=== PATIENT | male | born 1940 | race Caucasian/White ===

== ENCOUNTER → 2017-03-21 | Outpatient (CLI) | payer OTHER, BC ==
[~2017-03-21] MED LIST: ALBUAER INH; AMLO-114 PO; ASPI81TA28 PO; FIBER PO; FINA5TAB4 PO; FLUT0.15 NAE; HYDR25TA5 PO; IBUP-1050 PO; IPRASOL4 INH; LACT1TAB4; OMEP20CA9 PO; SIMV-151 PO
[2017-03-21 13:20] LABS: BASO % 1.1 %; BASO ABS # 0.08 K/uL (0-0.2); COMPLETE YES; EOS % 7.7 %; HEMATOCRIT 45.3 % (42-52); IG% 0.4 %; LYMPH % 25.2 %; LYMPH ABS # 1.84 K/uL (1.2-3.4); MEAN CELL VOLUME 94.2 fL (80-100); MEAN CORPUSCULAR HEMOGLOBIN 32.4 pg (25-34); MEAN CORPUSCULAR HGB CONC 34.4 g/dl (32-36); MEAN PLATELET VOLUME 10.5 fL (7.4-10.4); MONO % 12.1 %; NEUT % 53.5 %; PLATELET COUNT 317 K/uL (130-400); RED BLOOD COUNT 4.81 M/uL (4.7-6.1); WHITE BLOOD COUNT 7.29 K/uL (4.8-10.8)
[2017-03-21 13:30] LABS: BLOOD UREA NITROGEN 21 mg/dl (7-18); BUN/CREATININE RATIO 17.8 (10-20); CALCIUM 9.5 mg/dl (8.5-10.1); CARBON DIOXIDE 30 mmol/L (21-32); CHLORIDE 105 mmol/L (98-107); GLUCOSE 128 mg/dl (70-99); POTASSIUM 3.8 mmol/L (3.5-5.1); SODIUM 141 mmol/L (136-145)
[2017-03-21 13:33] LABS: ALB/GLOB RATIO 1.2 (0.9-2); ALKALINE PHOSPHATASE 67 U/L (45-117); ALT/SGPT 26 U/L (12-78); AST/SGOT 26 U/L (15-37); CHOLESTEROL 170 mg/dl (0-200); HDL CHOLESTEROL 42 mg/dl; LDL CHOLESTEROL CALCULATED 101 mg/dl; TRIGLYCERIDES 137 mg/dl (0-150); VERY LOW DENSITY LIPOPROT CALC 27 mg/dl
== END | disposition home or self-care (01) ==
LOC: C.LABMFLN 10:22
PROVIDERS: ATTEND Family Medicine
DX: I10 Essential (primary) hypertension (principal); E78.5 Hyperlipidemia, unspecified

== ENCOUNTER → 2017-08-18 | Outpatient (CLI) | payer OTHER, BC ==
[~2017-08-18] MED LIST changes: +ADVIN25/60 INH; +ALBU18002 INH; +ALL60 PO; -AMLO-114 PO; +AMLO10TA3 PO; +AZIT-57 PO; +CEFD300C3 PO; +FLNIN/ NAE; +GFNSR600 PO; +IPRA-64 NEB; -IPRASOL4 INH; +LPT40 PO; +NAPR1TAB9 PO; +NRV/10 PO; +PRED10TA PO; +PRED20TA PO; +PRED50TA PO; +PRS5 PO; +SYMIN160 INH; +TMF75 PO; +TPRSR/50 PO; +TPRSR25 PO
[2017-08-18 18:43] LABS: INFLUENZA A PCR Neg for Influ A (NEG); INFLUENZA B PCR Neg for Influ B (NEG)
== END | disposition home or self-care (01) ==
LOC: C.LABMFLN 16:17
PROVIDERS: ATTEND Family Medicine
DX: M79.1 Myalgia (principal)

== ENCOUNTER 2017-09-18 12:44 | Inpatient (IN) | payer OTHER, BC ==
[~2017-09-18] VITALS: Ht 180.3 cm; Wt 98.4 kg
[~2017-09-18 12:44] MED LIST changes: -ADVIN25/60 INH; -ALBU18002 INH; -ALL60 PO; +AMLO-114 PO; -AMLO10TA3 PO; -AZIT-57 PO; -CEFD300C3 PO; -FLNIN/ NAE; -GFNSR600 PO; -IPRA-64 NEB; +IPRASOL4 INH; -LPT40 PO; -NAPR1TAB9 PO; -NRV/10 PO; -PRED10TA PO; -PRED20TA PO; -PRED50TA PO; -PRS5 PO; -SYMIN160 INH; -TMF75 PO; -TPRSR/50 PO; -TPRSR25 PO
[2017-09-18] MEDS ORDERED: ALBUT/IPRATROP 3MG/0.5MG NEB 3 ML VIAL INH STA (13:22)
[2017-09-18] MEDS ORDERED: SODIUM CHLORIDE 0.9% 1000ML 500 ML IV ONE (13:22)
[2017-09-18] MEDS ORDERED: PIPERACILLIN/TAZOBACTAM 4.5 GM/100ML D5W IV STA (13:22)
--- NOTE | 2017-09-18 13:31 | EMERGENCY ROOM VISIT NOTE ---
History Report prepared by [place]: Nata Tello Under the Supervision of: Dr. Familia Pace M.D. First contact with patient: 13:17 Chief Complaint: FEVER Stated Complaint: CHILLS, FEVER History of Present Illness The patient is a 77 year old male who presents to the Emergency Room with complaints of sudden worsening generalized weakness beginning about two hours ago. The patient reports a fever, chills, nausea, and diarrhea beginning two hours ago. He reports he woke up this morning feeling normal and went to the gym. The patient states he felt normal yesterday. He denies any shortness of breath, cough, or urinary symptoms. Per , the patient has a history of sepsis. She states the patient's symptoms today are similar when he had the previous bout of sepsis. Per family, the patient's speech sounds different. The patient states his mouth is dry. The patient had a sinus infection at the end of July and was put on antibiotics for it. The patient has been off the antibiotic for about 2 weeks. He reports he felt well after stopping the antibiotics. The patient has a history of COPD. The patient had a flu shot this year. Source of History: patient Onset: two hours ago Position: other (generalized) Quality: other (weakness) Timing: worsening Associated Symptoms: + fevers, + chills, + nausea, + diarrhea, + weakness, No cough, No SOB, No urinary symptoms Review of Systems See HPI for pertinent positives & negatives. A total of 10 systems reviewed and were otherwise negative. Past Medical & Surgical Medical Problems: (1) Acute respiratory failure with hypoxia (2) Choledocholithiasis (3) COPD (chronic obstructive pulmonary disease) (4) Hypertension (5) Hypomagnesemia (6) Hypophosphatemia (7) Right lower lobe pneumonia (8) S/P hernia repair (9) Sepsis (10) UTI (lower urinary tract infection) Surgical Problems: (1) S/P hip replacement (2) S/P knee replacement (3) Status post laparoscopic cholecystectomy Family History Hypertension Social History Smoking Status: Never Smoker Alcohol Use: none Drug Use: none Marital Status: Housing Status: lives with significant other Occupation Status: retired Current/Historical Medications Scheduled Amlodipine (Norvasc), 10 MG PO DAILY Aspirin (Aspirin Ec), 81 MG PO DAILY Fiber Laxative (Fiber Laxative), 2 TABS PO QPM Finasteride (Proscar), 5 MG PO DAILY Fluticasone Propionate (Nasal) (Flonase Allergy Relief), 2 SPRAYS SURINDER HS Hydrochlorothiazide (Hydrochlorothiazide), 12.5 MG PO DAILY Omeprazole (Prilosec), 20 MG PO DAILY Scheduled PRN Ipratropium-Albuterol (Duoneb), 1 TREATMENT INH Q4H PRN for SOB/Wheezing Miscellaneous Medications Ibuprofen (Advil), Unknown Dose PO Allergies Coded Allergies: Levofloxacin (Verified Allergy, Unknown, facial swelling, 05/10/16) Morphine (Verified Adverse Reaction, Unknown, MIGRAINE, 05/10/16) Physical Exam Vital Signs Date Time Temp Pulse Resp B/P (MAP) Pulse Ox O2 Delivery O2 Flow Rate FiO2 09/18/17 17:26 90 18 128/75 94 09/18/17 16:49 95 18 131/74 91 Nasal Cannula 2.0 09/18/17 16:28 88 Nasal Cannula 2.0 09/18/17 15:23 104 09/18/17 13:13 Nasal Cannula 2.0 09/18/17 13:08 37.4 100 18 137/79 88 Room Air Physical Exam GENERAL: Patient is in no acute distress. HEENT: No acute trauma, normocephalic atraumatic, mucous membranes dry, no nasal congestion, no scleral icterus. NECK: No stridor, no adenopathy, no meningismus, trachea is midline. LUNGS: Bilateral wheezes with diminished breath sounds, no crackles, no respiratory distress. HEART: Tachycardic with a regular rhythm, no murmurs. ABDOMEN: Soft, nontender, bowel sounds positive, no hernias, no peritonitis. EXTREMITIES: No cyanosis or edema, full range of motion of all the joints without pain or difficulty, no signs for acute trauma. NEUROLOGIC: Oriented x 3, no acute motor or sensory deficits, no focal weakness. SKIN: No rash, no jaundice, no diaphoresis. Medical Decision & Procedures ER Provider Diagnostic Interpretation: Radiology results as stated below per my review and radiologist interpretation: CHEST ONE VIEW PORTABLE FINDINGS: Cardiomediastinal silhouette normal. Bibasilar bandlike opacities. Persistent elevation of the right hemidiaphragm. No large pleural effusion or pneumothorax. Osseous structures normal. Upper abdomen normal. IMPRESSION: 1. Bibasilar opacities likely atelectasis. Electronically signed by: Florencio Sinclair M.D. Laboratory Results 09/18/17 14:15 Red Blood Count 4.58, Mean Corpuscular Volume 91.9, Mean Corpuscular Hemoglobin 32.5, Mean Corpuscular Hemoglobin Concent 35.4, Mean Platelet Volume 10.3, Neutrophils (%) (Auto) 89.5, Lymphocytes (%) (Auto) 2.7, Monocytes (%) (Auto) 7.0, Eosinophils (%) (Auto) 0.2, Basophils (%) (Auto) 0.2, Neutrophils # (Auto) 19.34, Lymphocytes # (Auto) 0.59, Monocytes # (Auto) 1.52, Eosinophils # (Auto) 0.04, Basophils # (Auto) 0.05 09/18/17 14:15 Test 09/18/17 14:15 09/18/17 14:26 09/18/17 15:35 White Blood Count 21.63 K/uL (4.8-10.8) Red Blood Count 4.58 M/uL (4.7-6.1) Hemoglobin 14.9 g/dL (14.0-18.0) Hematocrit 42.1 % (42-52) Mean Corpuscular Volume 91.9 fL (80-100) Mean Corpuscular Hemoglobin 32.5 pg (25-34) Mean Corpuscular Hemoglobin Concent 35.4 g/dl (32-36) Platelet Count 280 K/uL (130-400) Mean Platelet Volume 10.3 fL (7.4-10.4) Neutrophils (%) (Auto) 89.5 % Lymphocytes (%) (Auto) 2.7 % Monocytes (%) (Auto) 7.0 % Eosinophils (%) (Auto) 0.2 % Basophils (%) (Auto) 0.2 % Neutrophils # (Auto) 19.34 K/uL (1.4-6.5) Lymphocytes # (Auto) 0.59 K/uL (1.2-3.4) Monocytes # (Auto) 1.52 K/uL (0.11-0.59) Eosinophils # (Auto) 0.04 K/uL (0-0.5) Basophils # (Auto) 0.05 K/uL (0-0.2) RDW Standard Deviation 43.1 fL (36.4-46.3) RDW Coefficient of Variation 12.9 % (11.5-14.5) Immature Granulocyte % (Auto) 0.4 % Immature Granulocyte # (Auto) 0.09 K/uL (0.00-0.02) Prothrombin Time 10.7 SECONDS (9.0-12.0) Prothromb Time International Ratio 1.0 (0.9-1.1) Activated Partial Thromboplast Time 22.6 SECONDS (21.0-31.0) Partial Thromboplastin Ratio 0.9 Anion Gap 11.0 mmol/L (3-11) Est Creatinine Clear Calc Drug Dose 60.6 ml/min Estimated GFR () 67.6 Estimated GFR (Non- 58.3 BUN/Creatinine Ratio 19.1 (10-20) Calcium Level 9.1 mg/dl (8.5-10.1) Magnesium Level 1.4 mg/dl (1.8-2.4) Total Bilirubin 0.7 mg/dl (0.2-1) Aspartate Amino Transf (AST/SGOT) 25 U/L (15-37) Alanine Aminotransferase (ALT/SGPT) 20 U/L (12-78) Alkaline Phosphatase 56 U/L (45-117) Troponin I < 0.015 ng/ml (0-0.045) Total Protein 7.0 gm/dl (6.4-8.2) Albumin 3.6 gm/dl (3.4-5.0) Globulin 3.4 gm/dl (2.5-4.0) Albumin/Globulin Ratio 1.1 (0.9-2) Bedside Lactic Acid Venous 2.07 mmol/L (0.90-1.70) Influenza Type A Antigen Neg for Influ A (NEG) Influenza Type B Antigen Neg for Influ B (NEG) Laboratory results reviewed by me. Medications Administered Medications (Trade) Dose Ordered Sig/Kathrine Route Start Time Stop Time Status Last Admin Dose Admin Sodium Chloride 500 ml @ 999 mls/hr Q31M ONCE IV 09/18/17 13:22 09/18/17 13:52 DC 09/18/17 13:10 999 MLS/HR Piperacillin Sod/ Tazobactam Sod (Zosyn Iv) 4.5 gm ONE STAT IV 09/18/17 13:22 09/18/17 13:26 DC 09/18/17 14:38 4.5 GM Albuterol/ Ipratropium (Duoneb) 3 ml NOW STAT INH 09/18/17 13:22 09/18/17 13:26 DC 09/18/17 14:37 3 ML Sodium Chloride 500 ml @ 999 mls/hr Q31M STAT IV 09/18/17 14:29 09/18/17 14:59 DC 09/18/17 14:20 999 MLS/HR Magnesium Sulfate (Magnesium Sulfate) 2 gm NOW STAT IV 09/18/17 14:55 09/18/17 14:56 DC 09/18/17 16:39 2 GM Potassium Chloride (Klor-Con M10) 40 meq NOW STAT PO 09/18/17 16:10 09/18/17 16:45 DC 09/18/17 17:15 40 MEQ Oseltamivir Phosphate (Tamiflu Cap) 75 mg NOW STAT PO 09/18/17 16:37 09/18/17 16:45 DC 09/18/17 17:15 75 MG ECG Indication: weakness Rate (beats per minute): 94 Rhythm: sinus rhythm Findings: PVC, T-wave inversion (Lateral) Comparison ECG Date: 05/10/2016 Change: Lateral ST changes are slightly more pronounced. EKG interpreted by me. ED Course 1317: The patient was evaluated in room B11A. A complete history and physical exam was performed. 1322: Ordered Duoneb 3 ml INH, Zosyn Iv 4.5 gm IV, Sodium Chloride 500 ml @ 999 mls/hr IV. 1429: Ordered Sodium Chloride 500 ml @ 999 mls/hr IV. 1455: Ordered Magnesium Sulfate 2 gm IV. 1503: [facility] the [facility] The patient will be evaluated for further management. Medical Decision Differential diagnoses: sepsis, pneumonia, bronchitis, exacerbation of COPD, dehydration, UTI, electrolyte imbalance, cardiac ischemia, influenza. There is a significant leukocytosis at 21,000, this is consistent with infection. No concerning anemia. Magnesium quite low at 1.4, no kidney failure , no hepatitis. Lactic acid level is mildly elevated consistent with either dehydration and/or sepsis. EKG shows a sinus rhythm with PVCs, there were a few subtle EKG changes but nothing thought consistent with acute PR. Cardiac enzyme testing 1 is not consistent with acute cardiac injury. Influenza testing was negative. Chest film shows bilateral lower lobe congestion, possibly pneumonia, possibly atelectasis. Blood cultures are pending. The patient was aggressively managed given his hypoxia and history of sepsis. He received IV Zosyn as antibiotic coverage. He was given a DuoNeb to help his wheezing. He received IV saline for hydration. He was given IV magnesium. The patient has SIRS criteria. He likely has a pneumonia. He presents hypoxic with a very high white blood cell count and weakness/fatigue. Hospitalization is warranted. I spoke to the patient and case management. The on-call hospitalist was consulted. Medication Reconcilliation Current Medication List: was personally reviewed by me Blood Pressure Screening Patient's blood pressure: Elevated blood pressure Blood pressure disposition: Elevated BP felt to be situational Consults Time Called: 1500 Consulting Physician: Dr. Herrera Returned Call: 1503 Discussed the patient's case with Dr. Herrera. The patient will be evaluated for further management. Impression Primary Impression: Pneumonia Additional Impressions: Hypoxia Hypomagnesemia SIRS (systemic inflammatory response syndrome) Critical Care I have personally spent greater than 40 minutes of critical care time in the direct management of this patient. This includes bedside care, interpretation of diagnostic studies, and testing, discussion with consultants, patient, and family members, and other required patient management activities. This 40 minutes is in excess of all separately billable procedures. Scribe Attestation The scribe's documentation has been prepared under my direction and personally reviewed by me in its entirety. I confirm that the note above accurately reflects all work, treatment, procedures, and medical decision making performed by me. Departure Information Dispostion Being Evaluated By Hospitalist Fiona Castro M.D. (PCP) Patient Instructions My [facility] Problem Qualifiers
--- NOTE | 2017-09-18 13:54 | DIAGNOSTIC IMAGING REPORT ---
CHEST ONE VIEW PORTABLE CLINICAL HISTORY: 77 years-old Male presenting with Sepsis. TECHNIQUE: Portable upright AP view of the chest was obtained. COMPARISON: 05/10/2016. FINDINGS: Cardiomediastinal silhouette normal. Bibasilar bandlike opacities. Persistent elevation of the right hemidiaphragm. No large pleural effusion or pneumothorax. Osseous structures normal. Upper abdomen normal. IMPRESSION: 1. Bibasilar opacities likely atelectasis. Electronically signed by: Florencio Sinclair M.D. 09/18/2017 1:53 PM Dictated Date/Time: 09/18/2017 1:52 PM
[2017-09-18] MEDS ORDERED: SODIUM CHLORIDE 0.9% 500ML 500 ML IV STA (14:29)
[2017-09-18 14:31] LABS: BASO % 0.2 %; BASO ABS # 0.05 K/uL (0-0.2); EOS % 0.2 %; EOS ABS # 0.04 K/uL (0-0.5); HEMATOCRIT 42.1 % (42-52); HEMOGLOBIN 14.9 g/dL (14.0-18.0); IG# 0.09 K/uL (0.00-0.02); LYMPH % 2.7 %; LYMPH ABS # 0.59 K/uL (1.2-3.4); MEAN CELL VOLUME 91.9 fL (80-100); MEAN CORPUSCULAR HEMOGLOBIN 32.5 pg (25-34); MEAN CORPUSCULAR HGB CONC 35.4 g/dl (32-36); MEAN PLATELET VOLUME 10.3 fL (7.4-10.4); MONO ABS # 1.52 K/uL (0.11-0.59); NEUT % 89.5 %; NEUT ABS # 19.34 K/uL (1.4-6.5); PLATELET COUNT 280 K/uL (130-400); RED CELL DISTRIBUTION WIDTH CV 12.9 % (11.5-14.5); RED CELL DISTRIBUTION WIDTH SD 43.1 fL (36.4-46.3); WHITE BLOOD COUNT 21.63 K/uL (4.8-10.8)
[2017-09-18 14:43] LABS: PTT PATIENT 22.6 SECONDS (21.0-31.0)
[2017-09-18 14:48] LABS: ALBUMIN 3.6 gm/dl (3.4-5.0); ALT/SGPT 20 U/L (12-78); BLOOD UREA NITROGEN 23 mg/dl (7-18); CALCIUM 9.1 mg/dl (8.5-10.1); CARBON DIOXIDE 24 mmol/L (21-32); CREATININE 1.18 mg/dl (0.60-1.40); GLUCOSE 136 mg/dl (70-99); POTASSIUM 3.4 mmol/L (3.5-5.1); SODIUM 137 mmol/L (136-145)
[2017-09-18 14:53] LABS: ALKALINE PHOSPHATASE 56 U/L (45-117); AST/SGOT 25 U/L (15-37)
[2017-09-18] MEDS ORDERED: MAGNESIUM SULFATE 1GM / D5W 1 GM BAG IV STA (14:55)
--- NOTE | 2017-09-18 15:48 | History and Physical ---
History & Physical Date & Time of Service: Sep 18, 2017 at 15:15 Chief Complaint: Chills, Fever Primary Care Physician: Fiona Stafford M.D. History of Present Illness Source: patient, spouse 77yo male with history of COPD who presents with feeling poorly starting this AM. 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 He had nausea, chills, fever ( 100.5), extreme fatigue, and diarrhea. The weakness was severe. No cough, headache, body aches, or arthralgias. He did have a flu shot this year. Over late July he had flu-like symptoms and was treated with a 10-day course of antibiotics. He was told he might have sinusitis. That illness resolved easily with antibiotics. In the ER today at presentation he was noted to be hypoxic with O2 sats in the 80s, improving with supplemental NC O2. Past Medical/Surgical History PMH: 1. COPD 2. HTN 3. h/o UTI with resulting sepsis in 2015 4. BPH PSH: 1. hernia repair (inguinal) 2. left THR 3. b/l TKR 4. tonsillectomy 5. 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 business owner), retired (heavy occupational smoke exposure) Immunizations History of Influenza Vaccine: Unknown History of Tetanus Vaccine?: Unknown History of Pneumococcal: Unknown History of Hepatitis B Vaccine: Unknown Multi-Drug Resistant Organisms History of MDRO: No Allergies Coded Allergies: Levofloxacin (Verified Allergy, Unknown, facial swelling, 05/10/16) Morphine (Verified Adverse Reaction, Unknown, MIGRAINE, 05/10/16) Home Medications Scheduled Amlodipine (Norvasc), 10 MG PO DAILY Aspirin (Aspirin Ec), 81 MG PO DAILY Fiber Laxative (Fiber Laxative), 2 TABS PO QPM Finasteride (Proscar), 5 MG PO DAILY Fluticasone Propionate (Nasal) (Flonase Allergy Relief), 2 SPRAYS SURINDER HS Hydrochlorothiazide (Hydrochlorothiazide), 12.5 MG PO DAILY Omeprazole (Prilosec), 20 MG PO DAILY Scheduled PRN Ipratropium-Albuterol (Duoneb), 1 TREATMENT INH Q4H PRN for SOB/Wheezing Miscellaneous Medications Ibuprofen (Advil), Unknown Dose PO Review of Systems Constitutional: + fever, + chills, + weight loss (last year, none now ), + weakness, + fatigue Eyes: No worsening of vision ENT: No nasal symptoms, No sore throat, No trouble swallowing Respiratory: + cough, + sputum (started this AM), No shortness of breath, No dyspnea on exertion Cardiovascular: No chest pain, No edema Abdomen: + nausea, + diarrhea (1x in the ER), No pain, No vomiting Musculoskeletal: No joint pain, No muscle pain Genitourinary - Male: No hematuria, No dysuria, No urinary hesitancy Neurologic: + numbness/tingling (LLE - chronic ) Psychiatric: No depression symptoms Endocrine: + fatigue Hematologic / Lymphatic: No abnormal bleeding/bruising Integumentary: No rash Physical Exam Vital Signs Date Time Temp Pulse Resp B/P (MAP) Pulse Ox O2 Delivery O2 Flow Rate FiO2 09/18/17 13:13 Nasal Cannula 2.0 09/18/17 13:08 37.4 100 18 137/79 88 Room Air General Appearance: no apparent distress, + pertinent finding (coughing) Head: normocephalic, atraumatic Eyes: PERRL, sclerae normal ENT: TMs normal, pharynx normal (MMM) Neck: supple, no adenopathy, thyroid normal, no JVD, no carotid bruits Respiratory/Chest: no respiratory distress, no accessory muscle use, + crackles (fine, both bases, modestly worse on left), + wheezing (mild, end-exp) Cardiovascular: no gallop, no murmur, normal peripheral pulses, + extra beats Abdomen/GI: normal bowel sounds, non tender, soft, no organomegaly Back: normal inspection Extremities/Musculoskelatal: normal capillary refill, no pedal edema Neurologic/Psych: no motor/sensory deficits, alert, normal mood/affect, normal reflexes, oriented x 3 Skin: no rash Lymphatic: no adenopathy (no cervical LAD) Diagnostics Laboratory Results Results Past 24 Hours Test 09/18/17 14:15 09/18/17 14:26 Range/Units White Blood Count 21.63 4.8-10.8 K/uL Red Blood Count 4.58 4.7-6.1 M/uL Hemoglobin 14.9 14.0-18.0 g/dL Hematocrit 42.1 42-52 % Mean Corpuscular Volume 91.9 80-100 fL Mean Corpuscular Hemoglobin 32.5 25-34 pg Mean Corpuscular Hemoglobin Concent 35.4 32-36 g/dl Platelet Count 280 130-400 K/uL Mean Platelet Volume 10.3 7.4-10.4 fL Neutrophils (%) (Auto) 89.5 % Lymphocytes (%) (Auto) 2.7 % Monocytes (%) (Auto) 7.0 % Eosinophils (%) (Auto) 0.2 % Basophils (%) (Auto) 0.2 % Neutrophils # (Auto) 19.34 1.4-6.5 K/uL Lymphocytes # (Auto) 0.59 1.2-3.4 K/uL Monocytes # (Auto) 1.52 0.11-0.59 K/uL Eosinophils # (Auto) 0.04 0-0.5 K/uL Basophils # (Auto) 0.05 0-0.2 K/uL RDW Standard Deviation 43.1 36.4-46.3 fL RDW Coefficient of Variation 12.9 11.5-14.5 % Immature Granulocyte % (Auto) 0.4 % Immature Granulocyte # (Auto) 0.09 0.00-0.02 K/uL Prothrombin Time 10.7 9.0-12.0 SECONDS Prothromb Time International Ratio 1.0 0.9-1.1 Activated Partial Thromboplast Time 22.6 21.0-31.0 SECONDS Partial Thromboplastin Ratio 0.9 Sodium Level 137 136-145 mmol/L Potassium Level 3.4 3.5-5.1 mmol/L Chloride Level 102 98-107 mmol/L Carbon Dioxide Level 24 21-32 mmol/L Anion Gap 11.0 3-11 mmol/L Blood Urea Nitrogen 23 7-18 mg/dl Creatinine 1.18 0.60-1.40 mg/dl Est Creatinine Clear Calc Drug Dose 60.6 ml/min Estimated GFR () 67.6 Estimated GFR (Non- 58.3 BUN/Creatinine Ratio 19.1 10-20 Random Glucose 136 70-99 mg/dl Calcium Level 9.1 8.5-10.1 mg/dl Magnesium Level 1.4 1.8-2.4 mg/dl Total Bilirubin 0.7 0.2-1 mg/dl Aspartate Amino Transf (AST/SGOT) 25 15-37 U/L Alanine Aminotransferase (ALT/SGPT) 20 12-78 U/L Alkaline Phosphatase 56 45-117 U/L Troponin I < 0.015 0-0.045 ng/ml Total Protein 7.0 6.4-8.2 gm/dl Albumin 3.6 3.4-5.0 gm/dl Globulin 3.4 2.5-4.0 gm/dl Albumin/Globulin Ratio 1.1 0.9-2 Bedside Lactic Acid Venous 2.07 0.90-1.70 mmol/L Microbiology Results 09/18/17 Blood Culture, Received Pending 09/18/17 Blood Culture, Received Pending Diagnostic Radiology cxr - bibasilar opacities, likely atelectasis EKG EKG - my reading - NSR, PVC, lateral ST depressions - unchanged from prior EKG in I/AVl, modestly worse in V4-V6; IVCD present also unchanged from prior EKG Impression Assessment and Plan 77yo male with h/o COPD presenting with acute hypoxic respiratory failure. His illness started quite abruptly this AM and, despite the negative flu test, he easily could have influenza. I cannot exclude a developing community-acquired pneumonia. 1. acute hypoxic respiratory failure - 2nd to COPD exacerbation +/- possible community acquired pneumonia +/- possible influenza. 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 SIRS/possible early sepsis - due to pulmonary source. Follow blood cx's. Empiric antibiotics. Empiric tamiflu. Repeat CXR in AM to try and confirm pneumonia process. 3. hypomagnesemia - 2nd to chronic HCTZ use. Replace with IV mag, repeat level in AM. Hold HCTZ. 4. HTN - cont norvasc, hold HCTZ. 5. hypokalemia - replace, repeat K in am. 6. BPH - continue home meds. 7. DVT proph - lovenox once daily. 8. FEN - 1 additional liter of NS then saline lock; diet as tolerated; BMP/mag in am. 9. GERD - PPI. PT evaluation while here updated Place on telemetry due to #1, #2 Level of Care Telemetry Advanced Directives Existing Advance Directive: Yes Resuscitation Status FULL RESUSCITATION VTE Prophylaxis Risk Level: Moderate Given or contraindicated: Enoxaparin (Lovenox)SQ Social Service Consult None Apply Note total time about 60 min Additional Copies To Fiona Stafford M.D.
[2017-09-18] MEDS ORDERED: ONDANSETRON INJ 2 MG/ML 2 ML VIAL IV PRN (16:00)
[2017-09-18] MEDS ORDERED: MAGNESIUM HYDROXIDE SUSP 30 ML UDC PO PRN (16:00)
[2017-09-18] MEDS ORDERED: BENZONATATE 100MG CAP PO PRN (16:00)
[2017-09-18] MEDS ORDERED: ALUMINUM/MAGNESIUM/SIMETH (MAALOX MAX) 30 ML UDC PO PRN (16:00)
[2017-09-18] MEDS ORDERED: SODIUM CHLORIDE 0.9% 1000ML 1,000 ML IV SCH (16:00)
[2017-09-18] MEDS ORDERED: POTASSIUM CHLORIDE 10 MEQ TABCR PO STA (16:10)
[2017-09-18 16:19] LABS: INFLUENZA B ANTIGEN Neg for Influ B (NEG)
[2017-09-18 16:28] VITALS: O2SAT 88; Ht 180.3 cm; Wt 98.4 kg
[2017-09-18] MEDS ORDERED: OSELTAMIVIR PHOSPHATE 75 MG CAP PO STA (16:37)
[2017-09-18] MEDS ORDERED: AZITHROMYCIN IV 500 MG in DEXTROSE 5% 250ML 250 ML IV SCH (17:00)
[2017-09-18] MEDS ORDERED: ACETAMINOPHEN 500 MG TAB PO PRN (17:30)
[2017-09-18 18:01] VITALS: BP 130/76; PULSE 85; TEMP 37; O2SAT 93
[2017-09-18] MEDS: METHYLPREDNISOLONE IV 40 MG in SYRINGE 0 ML IV SCH (18:35)
[2017-09-18 19:41] VITALS: PULSE 82; O2SAT 92
[2017-09-18] MEDS: ALBUT/IPRATROP 3MG/0.5MG NEB 3 ML VIAL INH SCH (19:44)
[2017-09-18] MEDS: CEFTRIAXONE SOD INJ 1 GM in DEXTROSE 5% ADD-VANTAGE 50ML 50 ML IV SCH (20:13)
[2017-09-18] MEDS: FLUTICASONE PROPIONATE NA SPR 16 GM BTL NAE SCH (20:14)
[2017-09-18] MEDS: OSELTAMIVIR PHOSPHATE 75 MG CAP PO SCH (20:15)
[2017-09-18] MEDS: GUAIFENESIN 600 MG TABCR PO SCH (20:16)
[2017-09-18] MEDS: ENOXAPARIN 40 MG/0.4 ML SYR SC SCH (20:17)
[2017-09-18 23:59] VITALS: BP 94/54; PULSE 76; TEMP 37; O2SAT 94
[2017-09-19] VITALS (11 sets, daily range): BP systolic 107–152; BP diastolic 60–82; PULSE 75–110; TEMP 36.6–36.8; O2SAT 91–95
[2017-09-19] MEDS: METHYLPREDNISOLONE IV 40 MG in SYRINGE 0 ML IV SCH ×3 (01:48→21:00)
[2017-09-19 06:03] LABS: HEMATOCRIT 42.1 % (42-52); HEMOGLOBIN 14.4 g/dL (14.0-18.0); IG# 0.06 K/uL (0.00-0.02); LYMPH % 3.9 %; MEAN CELL VOLUME 93.6 fL (80-100); MEAN CORPUSCULAR HGB CONC 34.2 g/dl (32-36); MEAN PLATELET VOLUME 10.5 fL (7.4-10.4); MONO % 0.7 %; MONO ABS # 0.14 K/uL (0.11-0.59); NEUT % 95.1 %; NEUT ABS # 19.74 K/uL (1.4-6.5); PLATELET COUNT 261 K/uL (130-400); RED CELL DISTRIBUTION WIDTH CV 12.9 % (11.5-14.5); RED CELL DISTRIBUTION WIDTH SD 43.7 fL (36.4-46.3); WHITE BLOOD COUNT 20.74 K/uL (4.8-10.8)
[2017-09-19 06:39] LABS: CALCIUM 8.9 mg/dl (8.5-10.1); CREATININE 1.06 mg/dl (0.60-1.40); POTASSIUM 3.8 mmol/L (3.5-5.1)
[2017-09-19] MEDS: ALBUT/IPRATROP 3MG/0.5MG NEB 3 ML VIAL INH SCH ×5 (07:25→20:42)
--- NOTE | 2017-09-19 08:31 | DIAGNOSTIC IMAGING REPORT ---
CHEST 2 VIEWS ROUTINE HISTORY: Fever. QUESTION OF DEVELOPING PNEUMONIA COMPARISON: Chest 09/18/2017. FINDINGS: The heart is normal in size. No pleural effusions. No pneumothorax. There are right basilar linear densities favor subsegmental atelectasis. The lungs are otherwise clear. No evidence for pulmonary edema. IMPRESSION: Stable right basilar linear density suggesting subsegmental atelectasis. No focal lung consolidations to suggest pneumonia. Electronically signed by: Brown Chavez M.D. 09/19/2017 8:30 AM Dictated Date/Time: 09/19/2017 8:28 AM
[2017-09-19] MEDS: OSELTAMIVIR PHOSPHATE 75 MG CAP PO SCH ×2 (08:38→20:59)
[2017-09-19] MEDS: GUAIFENESIN 600 MG TABCR PO SCH ×2 (08:38→21:02)
[2017-09-19] MEDS: AMLODIPINE BESYLATE 5 MG TAB PO SCH (08:39)
[2017-09-19] MEDS: PANTOprazole SOD 40 MG TAB PO SCH (08:39)
[2017-09-19] MEDS: AZITHROMYCIN 250 MG TAB PO SCH (08:39)
[2017-09-19] MEDS: ASPIRIN 81 MG ECTAB PO SCH (08:39)
[2017-09-19] MEDS: FINASTERIDE 5 MG TAB PO SCH (08:40)
--- NOTE | 2017-09-19 15:32 | Progress Note ---
Subjective Date of Service: Sep 19, 2017. Subjective Pt evaluation today including: conversation w/ patient, conversation w/ family , physical exam, chart review, lab review, review of studies, review of inpatient medication list Reports some dry cough, no sputum, no fever and chill, SOB, and generalized weakness has significantly improved Has been up and walk, Problem List Medical Problems: (1) Febrile illness, acute Status: Acute (2) Hypoxia Status: Acute (3) Pneumonia Status: Acute (4) SIRS (systemic inflammatory response syndrome) Status: Acute (5) SIRS (systemic inflammatory response syndrome) Status: Acute Review of Systems Constitutional: + weakness, + fatigue, No fever, No chills, No sweats, No weight loss, No problem reported Eyes: No worsening of vision, No eye pain, No redness, No discharge, No diplopia ENT: No hearing loss, No unusual epistaxis, No nasal symptoms, No sore throat, No tinnitus, No dental problems, No trouble swallowing Respiratory: + wheezing, + shortness of breath, No cough, No sputum, No dyspnea on exertion, No dyspnea at rest, No hemoptysis Cardiac: No chest pain, No orthopnea, No PND, No edema, No claudication, No palpitations Abdomen: No pain, No nausea, No vomiting, No diarrhea, No constipation Musculoskeletal: No joint pain, No muscle pain, No swelling, No calf pain Male : No dysuria, No urinary frequency, No incontinence, No nocturia more than once/night, No slowing stream, No hematuria Neurologic: No memory loss, No paralysis, No weakness, No numbness/tingling, No vertigo, No balance problems Psychiatric: No depression symptoms, No anhedonism, No anxiety, No insomnia, No substance abuse Heme: No abnormal bleeding/bruising, No clotting problems, No swollen lymph nodes, No night sweats Endo: No fatigue, No excessive thirst, No excessive urination Skin: No rash, No itch, No new/changing skin lesions, No color change, No bleeding Objective Vital Signs Date Time Temp Pulse Resp B/P (MAP) Pulse Ox O2 Delivery O2 Flow Rate FiO2 09/19/17 12:14 36.8 110 20 134/80 (98) 91 Room Air 09/19/17 12:00 Room Air 09/19/17 11:17 80 16 94 Room Air 09/19/17 08:27 36.8 84 18 120/82 (95) 95 09/19/17 08:00 Room Air 09/19/17 07:26 81 16 92 Room Air 09/19/17 04:00 36.6 75 18 107/60 (76) 94 Room Air 09/19/17 04:00 94 Room Air 09/18/17 23:59 37.0 76 18 94/54 (67) 94 Room Air 09/18/17 23:59 94 Room Air 09/18/17 20:00 Room Air 09/18/17 19:41 82 16 92 Room Air 09/18/17 18:01 37.0 85 18 130/76 (94) 93 Room Air 09/18/17 17:26 90 18 128/75 94 09/18/17 16:49 95 18 131/74 91 Nasal Cannula 2.0 09/18/17 16:28 88 Nasal Cannula 2.0 Physical Exam General Appearance: WD/WN, no apparent distress, + obese Eyes: normal inspection, PERRL, EOMI, sclerae normal ENT: normal ENT inspection, hearing grossly normal, pharynx normal Neck: supple, no adenopathy, thyroid normal, no JVD, no carotid bruits, trachea midline Respiratory/Chest: chest non-tender, lungs clear, normal breath sounds, no respiratory distress, no accessory muscle use, + decreased breath sounds, + rales, + wheezing (occasional) Cardiovascular: regular rate, rhythm, no edema, no gallop, no JVD, no murmur Abdomen: normal bowel sounds, non tender, soft, no organomegaly, no pulsatile mass Extremities: normal range of motion, non-tender, normal inspection, no pedal edema, no calf tenderness, normal capillary refill, pelvis stable Neurologic/Psychiatric: 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, no motor/sensory deficits, alert, normal mood/affect, oriented x 3 Skin: normal color, warm/dry, no rash Lymphatic: no adenopathy Laboratory Results Last 24 Hours Test 09/18/17 15:35 09/18/17 18:15 09/19/17 05:29 Influenza Type A Antigen Neg for Influ A Influenza Type B Antigen Neg for Influ B Urine Color YELLOW Urine Appearance CLEAR Urine pH 6.0 Urine Specific [place] 1.020 Urine Protein NEG Urine Glucose (UA) NEG Urine Ketones NEG Urine Occult Blood NEG Urine Nitrite NEG Urine Bilirubin NEG Urine Urobilinogen NEG Urine Leukocyte Esterase NEG Urine WBC (Auto) 1-5 /hpf Urine RBC (Auto) 0-4 /hpf Urine Hyaline Casts (Auto) 1-5 /lpf Urine Epithelial Cells (Auto) 5-10 /lpf Urine Bacteria (Auto) NEG White Blood Count 20.74 K/uL Red Blood Count 4.50 M/uL Hemoglobin 14.4 g/dL Hematocrit 42.1 % Mean Corpuscular Volume 93.6 fL Mean Corpuscular Hemoglobin 32.0 pg Mean Corpuscular Hemoglobin Concent 34.2 g/dl Platelet Count 261 K/uL Mean Platelet Volume 10.5 fL Neutrophils (%) (Auto) 95.1 % Lymphocytes (%) (Auto) 3.9 % Monocytes (%) (Auto) 0.7 % Eosinophils (%) (Auto) 0.0 % Basophils (%) (Auto) 0.0 % Neutrophils # (Auto) 19.74 K/uL Lymphocytes # (Auto) 0.80 K/uL Monocytes # (Auto) 0.14 K/uL Eosinophils # (Auto) 0.00 K/uL Basophils # (Auto) 0.00 K/uL RDW Standard Deviation 43.7 fL RDW Coefficient of Variation 12.9 % Immature Granulocyte % (Auto) 0.3 % Immature Granulocyte # (Auto) 0.06 K/uL Sodium Level 139 mmol/L Potassium Level 3.8 mmol/L Chloride Level 105 mmol/L Carbon Dioxide Level 24 mmol/L Anion Gap 9.0 mmol/L Blood Urea Nitrogen 21 mg/dl Creatinine 1.06 mg/dl Est Creatinine Clear Calc Drug Dose 67.6 ml/min Estimated GFR () 77.0 Estimated GFR (Non- 66.4 BUN/Creatinine Ratio 20.1 Random Glucose 219 mg/dl Calcium Level 8.9 mg/dl Magnesium Level 1.8 mg/dl Assessment and Plan 77yo male with h/o COPD admitted on 09/18/2017 because of acute hypoxic respiratory failure, likely secondary to COPD exacerbation, acute hypoxic respiratory failure, likely secondary to COPD exacerbation, Repeated chest x-ray two-view no us no community acquired pneumonia Possible sepsis upon admission because of an elevated lactase and leukocytosis, rule out no UTI, no open wound in his body Continue NC O2 support as needed, and tinea scheduled nebs, Switch Solu- Medrol iv to every 12, continue rocephin/zithromax to cover for community- acquired pneumonia, follow blood cx's Continue empiric tamiflu x 5 days in the event he had a false negative rapid flu test (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
[2017-09-19] MEDS: CEFTRIAXONE SOD INJ 1 GM in DEXTROSE 5% ADD-VANTAGE 50ML 50 ML IV SCH (20:58)
[2017-09-19] MEDS: FLUTICASONE PROPIONATE NA SPR 16 GM BTL NAE SCH (21:01)
[2017-09-19] MEDS: ENOXAPARIN 40 MG/0.4 ML SYR SC SCH (21:02)
[2017-09-20 06:16] LABS: CALCIUM 9.4 mg/dl (8.5-10.1); CREATININE 1.12 mg/dl (0.60-1.40); POTASSIUM 4.3 mmol/L (3.5-5.1)
[2017-09-20 07:16] VITALS: PULSE 73; O2SAT 96
[2017-09-20] MEDS: ALBUT/IPRATROP 3MG/0.5MG NEB 3 ML VIAL INH SCH (07:16)
[2017-09-20 07:50] VITALS: BP 131/69; PULSE 82; TEMP 36.4; O2SAT 92
[2017-09-20] MEDS: METHYLPREDNISOLONE IV 40 MG in SYRINGE 0 ML IV SCH (07:52)
[2017-09-20] MEDS: PANTOprazole SOD 40 MG TAB PO SCH (07:52)
[2017-09-20] MEDS: AMLODIPINE BESYLATE 5 MG TAB PO SCH (07:52)
[2017-09-20] MEDS: FINASTERIDE 5 MG TAB PO SCH (07:52)
[2017-09-20] MEDS: AZITHROMYCIN 250 MG TAB PO SCH (07:52)
[2017-09-20] MEDS: ASPIRIN 81 MG ECTAB PO SCH (07:52)
[2017-09-20] MEDS: GUAIFENESIN 600 MG TABCR PO SCH (07:53)
[2017-09-20] MEDS: OSELTAMIVIR PHOSPHATE 75 MG CAP PO SCH (08:35)
[2017-09-20 08:52] LABS: HEMOGLOBIN 13.5 g/dL (14.0-18.0); MEAN CELL VOLUME 93.9 fL (80-100); MEAN CORPUSCULAR HEMOGLOBIN 31.7 pg (25-34); MEAN CORPUSCULAR HGB CONC 33.8 g/dl (32-36); MEAN PLATELET VOLUME 10.6 fL (7.4-10.4); PLATELET COUNT 272 K/uL (130-400); RED CELL DISTRIBUTION WIDTH CV 12.9 % (11.5-14.5); RED CELL DISTRIBUTION WIDTH SD 44.2 fL (36.4-46.3); WHITE BLOOD COUNT 23.31 K/uL (4.8-10.8)
[2017-09-20 09:16] LABS: BASO ABS # 0.01 K/uL (0-0.2); LYMPH % 3.4 %; LYMPH ABS # 0.79 K/uL (1.2-3.4); MONO % 3.5 %; MONO ABS # 0.82 K/uL (0.11-0.59); NEUT % 92.7 %; NEUT ABS # 21.59 K/uL (1.4-6.5)
[2017-09-20] MEDS ORDERED: TMF75 PO (10:15)
[2017-09-20] MEDS ORDERED: PRED20TA PO (10:15)
[2017-09-20] MEDS ORDERED: AZIT-57 PO (10:15)
--- NOTE | 2017-09-20 10:20 | Discharge Instructions ---
Discharge Instructions Date of Service Sep 20, 2017. Admission Reason for Admission: Acute Respiratory Failure With Hypoxia Discharge Discharge Diagnosis / Problem: acute hypoxic resp failure Discharge Goals Goal(s): Decrease discomfort, Improve function, Increase independence, Improve disease control, Improve nutritional status, Learn about illness, Diagnostic testing, Therapeutic intervention, Prevent Disease Progression, Specific goals Activity Recommendations Activity Limitations: resume your previous activity . Instructions / Follow-Up Instructions / Follow-Up you have acute hypoxic respiratory failure, likely secondary to COPD exacerbation, you have COPD exacerbation, you possible have sepsis upon admission because of an elevated lactase and leukocytosis, rule out no UTI, you need to call pcp or go to emergency room if has fever Continue empiric tamiflu for 3 days more Used to be okay to return to work tomorrow morning if you continued doing well - you need to follow up with your primary care physician in 1 week, - take medication as instructed, never overdose or any misuse, or take with alcohol, because misuse of medicine may cause organ damage or , call your primary care physician if have questions of medicaitons. - call your primary care physician OR go to local emergency room if has any fever/chill, chest pain, shortness of breathing, nausea/vomiting/abdominal pain , facial droop/slurry speech/local weakness, or if has any questions. - fall precaution - diet as instructed - you should understand that it is important to follow up the above instruction , and "not following the above instruction" may cause delayed or missed care of your medical conditions which may cause permanent organ damage and even . Current Hospital Diet Patient's current hospital diet: Regular Diet Discharge Diet Recommended Diet: AHA Diet (Heart Healthy) Pending Studies Studies pending at discharge: yes List of pending studies: Final blood culture results Laboratory Results Meds Administered (Past 24Hrs) Medications (Trade) Dose Ordered Sig/Kathrine Route Start Time Stop Time Status Last Admin Dose Admin Sodium Chloride 500 ml @ 999 mls/hr Q31M ONCE IV 09/18/17 13:22 09/18/17 13:52 DC 09/18/17 13:10 999 MLS/HR Piperacillin Sod/ Tazobactam Sod (Zosyn Iv) 4.5 gm ONE STAT IV 09/18/17 13:22 09/18/17 13:26 DC 09/18/17 14:38 4.5 GM Albuterol/ Ipratropium (Duoneb) 3 ml NOW STAT INH 09/18/17 13:22 09/18/17 13:26 DC 09/18/17 14:37 3 ML Sodium Chloride 500 ml @ 999 mls/hr Q31M STAT IV 09/18/17 14:29 09/18/17 14:59 DC 09/18/17 14:20 999 MLS/HR Magnesium Sulfate (Magnesium Sulfate) 2 gm NOW STAT IV 09/18/17 14:55 09/18/17 14:56 DC 09/18/17 16:39 2 GM Enoxaparin Sodium (Lovenox Inj) 40 mg Q24H SC 09/18/17 21:00 10/18/17 20:59 09/19/17 21:02 40 MG Sodium Chloride 1,000 ml @ 75 mls/hr [id number] IV 09/18/17 16:00 09/19/17 05:19 DC 09/18/17 18:35 75 MLS/HR Amlodipine Besylate (Norvasc Tab) 10 mg DAILY PO 09/19/17 09:00 10/19/17 08:59 09/20/17 07:52 10 MG Aspirin (Ecotrin Tab) 81 mg DAILY PO 09/19/17 09:00 10/19/17 08:59 09/20/17 07:52 81 MG Finasteride (Proscar Tab) 5 mg DAILY PO 09/19/17 09:00 10/19/17 08:59 09/20/17 07:52 5 MG Fluticasone Propionate (Flonase Nasal [place]) 2 sprays HS SURINDER 09/18/17 21:00 10/18/17 20:59 09/19/17 21:01 2 SPRAYS Pantoprazole Sodium (Protonix Tab) 40 mg QAM PO 09/19/17 09:00 10/19/17 08:59 09/20/17 07:52 40 MG Methylprednisolone Sodium Succinate 40 mg/Syringe 0.64 ml @ 1.5 mls/min Q8H IV 09/18/17 18:00 09/19/17 15:34 DC 09/19/17 10:12 1.5 MLS/MIN Albuterol/ Ipratropium (Duoneb) 3 ml QIDR INH 09/18/17 16:00 10/18/17 15:59 09/20/17 07:16 3 ML Guaifenesin (Mucinex Contr Rel Tab) 1,200 mg Q12 PO 09/18/17 21:00 10/18/17 20:59 09/20/17 07:53 1,200 MG Ceftriaxone Sodium 1 gm/ Dextrose 50 ml @ 100 mls/hr Q24H IV 09/18/17 20:00 09/25/17 19:59 09/19/17 20:58 100 MLS/HR Azithromycin 500 mg/Dextrose 255 ml @ 125 mls/hr 1700 IV 09/18/17 17:00 09/18/17 23:00 DC 09/18/17 17:58 125 MLS/HR Azithromycin (Zithromax Tab) 250 mg QAM PO 09/19/17 09:00 09/22/17 09:01 09/20/17 07:52 250 MG Potassium Chloride (Klor-Con M10) 40 meq NOW STAT PO 09/18/17 16:10 09/18/17 16:45 DC 09/18/17 17:15 40 MEQ Oseltamivir Phosphate (Tamiflu Cap) 75 mg NOW STAT PO 09/18/17 16:37 09/18/17 16:45 DC 09/18/17 17:15 75 MG Oseltamivir Phosphate (Tamiflu Cap) 75 mg BID PO 09/18/17 21:00 09/23/17 20:59 09/20/17 08:35 75 MG Methylprednisolone Sodium Succinate 40 mg/Syringe 0.64 ml @ 1.5 mls/min Q12 IV 09/19/17 21:00 10/18/17 17:59 09/20/17 07:52 1.5 MLS/MIN Medical Emergencies . Who to Call and When: Medical Emergencies: If at any time you feel your situation is an emergency, please call 911 immediately. . Non-Emergent Contact Non-Emergency issues call your: Primary Care Provider Call Non-Emergent contact if: you have a fever . . "Provider Documentation" section prepared by Bertrand Sabillon. . VTE Core Measure Inpt VTE Proph given/why not?: Enoxaparin (Lovenox)SQ
--- NOTE | 2017-09-20 10:30 | Discharge Summary ---
Discharge Summary Date of Service Sep 20, 2017. Discharge Summary Admission Date: Sep 18, 2017 at 16:09 Discharge Date: Sep 20, 2017 Discharge Disposition: Home Principal Diagnosis: acute hypoxic respiratory failure, likely secondary to COPD exacerbation, Problems/Secondary Diagnoses: COPD exacerbation, possible have sepsis upon admission possible flu Immunizations: Have You Had Influenza Vaccine: Unknown History of Tetanus Vaccine?: Unknown History of Pneumococcal: Unknown History of Hepatitis B Vaccine: Unknown Procedures: No Consultations: No Medication Reconciliation New Medications: Prednisone (Prednisone) 20 Mg Tab 30 MG PO DAILY for 5 Days 30mg po daily for 5 days only Azithromycin (Azithromycin) 250 Mg Tab 250 MG PO QAM for 3 Days, TAB Oseltamivir Phosphate (Tamiflu) 75 Mg Cap 75 MG PO BID for 3 Days, CAP Continued Medications: Amlodipine (Norvasc) 10 Mg Tab 10 MG PO DAILY Aspirin (Aspirin Ec) 81 Mg Tab 81 MG PO DAILY Fiber Laxative (Fiber Laxative) Ea 2 TABS PO QPM Finasteride (Proscar) 5 Mg Tab 5 MG PO DAILY Fluticasone Propionate (Nasal) (Flonase Allergy Relief) 50 Mcg/Act Spr 2 SPRAYS SURINDER HS Hydrochlorothiazide (Hydrochlorothiazide) 25 Mg Tab 12.5 MG PO DAILY TAKE HALF OF A 25MG TABLET Ibuprofen (Advil) Unknown Strength Tab Unknown Dose PO, TAB STATES PATIENT TOOK 2 ADVIL TODAY Ipratropium-Albuterol (Duoneb) 3 Ml Nebu 1 TREATMENT INH Q4H PRN for SOB/Wheezing, INHA Omeprazole (Prilosec) 20 Mg Cap 20 MG PO DAILY Discharge Exam Continue doing well, has been up and walk many laps yesterday and this morning, deny cough or sob, no wheezing of fever or chill Review of Systems: Constitutional: No fever, No chills, No sweats, No weight loss, No weakness , No fatigue, No problem reported ENT: No hearing loss, No unusual epistaxis, No nasal symptoms, No sore throat, No tinnitus, No dental problems, No trouble swallowing, No problem reported Respiratory: No cough, No sputum, No wheezing, No shortness of breath, No dyspnea on exertion, No dyspnea at rest, No hemoptysis, No problem reported Cardiovascular: No chest pain, No orthopnea, No PND, No edema, No claudication, No palpitations, No problem reported Abdomen: No pain, No nausea, No vomiting, No diarrhea, No constipation, No GI bleeding, No problem reported Musculoskeletal: No joint pain, No muscle pain, No swelling, No calf pain, No problem reported Genitourinary - Male: No hematuria, No dysuria, No urinary frequency, No urinary urgency, No urinary hesitancy, No urinary retention, No urinary incontinence, No penile discharge, No lesions, No impotence, No problem reported Neurologic: No memory loss, No paralysis, No weakness, No numbness/tingling , No vertigo, No balance problems, No problem reported Psychiatric: No depression symptoms, No anhedonism, No anxiety, No insomnia , No substance abuse, No problem reported Endocrine: No fatigue, No excessive thirst, No excessive urination, No problem reported Hematologic / Lymphatic: No abnormal bleeding/bruising, No clotting problems , No swollen lymph nodes, No night sweats, No problem reported Integumentary: No rash, No itch, No new/changing skin lesions, No color change, No bleeding, No problem reported Physical Exam: General Appearance: WD/WN, no apparent distress Eyes: normal inspection, PERRL, EOMI ENT: normal ENT inspection, hearing grossly normal Neck: supple, no adenopathy, thyroid normal Respiratory/Chest: chest non-tender, no respiratory distress, no accessory muscle use, + decreased breath sounds Cardiovascular: regular rate, rhythm, no edema, no gallop, no JVD, no murmur , normal peripheral pulses Abdomen / GI: normal bowel sounds, non tender, soft, no organomegaly, no pulsatile mass Extremities: normal inspection, no calf tenderness, normal capillary refill , no pedal edema Neurologic/Psychiatric: 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, no motor/sensory deficits , alert, normal mood/affect, normal reflexes, oriented x 3 Skin: normal color, warm/dry, no rash Hospital Course 77yo male with h/o COPD admitted on 09/18/2017 because of acute hypoxic respiratory failure, likely secondary to COPD exacerbation, acute hypoxic respiratory failure, likely secondary to COPD exacerbation, resolved Repeated chest x-ray two-view no us no community acquired pneumonia Possible sepsis upon admission because of an elevated lactase and leukocytosis, rule out no UTI, no open wound in his body, blood culture so far negative for 48 hours was on NC O2 support as needed, he does not need oxygen, Has been on scheduled nebs, Switch Solu-Medrol iv to every 12, which will be switched to oral prednisone 30 mg by mouth daily for 5 days and then stop Was on rocephin/zithromax to cover for community-acquired pneumonia after admission, I don't feel he need Rocephin to be continued or any Augmentin upon discharge because he has no pneumonia, will continue azithromycin for bronchitis and COPD exacerbation Continue empiric tamiflu x 5 days in the event he had a false negative rapid flu test (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) Patient has no more cough, fever general condition looks good, I feel he is to be okay to return to work tomorrow if he continue to feeling well SIRS/possible early sepsis - due to pulmonary source, see above, patient need to follow-up with PCP for the final blood culture results Increase activity, med surge, GI and DVT prophylaxis Instructions / Follow-Up you have acute hypoxic respiratory failure, likely secondary to COPD exacerbation, you have COPD exacerbation, you possible have sepsis upon admission because of an elevated lactase and leukocytosis, rule out no UTI, you need to call pcp or go to emergency room if has fever Continue empiric tamiflu for 3 days more Used to be okay to return to work tomorrow morning if you continued doing well - you need to follow up with your primary care physician in 1 week, - take medication as instructed, never overdose or any misuse, or take with alcohol, because misuse of medicine may cause organ damage or , call your primary care physician if have questions of medicaitons. - call your primary care physician OR go to local emergency room if has any fever/chill, chest pain, shortness of breathing, nausea/vomiting/abdominal pain , facial droop/slurry speech/local weakness, or if has any questions. - fall precaution - diet as instructed - you should understand that it is important to follow up the above instruction , and "not following the above instruction" may cause delayed or missed care of your medical conditions which may cause permanent organ damage and even . Total Time Spent: Greater than 30 minutes This includes examination of the patient, discharge planning, medication reconciliation, and communication with other providers. Discharge Instructions Please refer to the electronic Patient Visit Report (Discharge Instructions) for additional information. Additional Copies To Fiona Stafford M.D.
[2017-09-20 10:34] VITALS: BP 131/69; PULSE 82; TEMP 36.4; O2SAT 92
== END 2017-09-20 11:01 | disposition home or self-care (01) | DRG 871 ==
LOC: C.EDB 12:45 → C.2T 16:09 → ENRESERV 17:09 → C.4E 09-19 16:19
PROVIDERS: ADMIT Internal Medicine; ATTEND Hospitalist
DX: A41.9 Sepsis, unspecified organism (principal); J96.01 Acute respiratory failure with hypoxia; J44.1 Chronic obstructive pulmonary disease with (acute) exacerbation; J44.0 Chronic obstructive pulmonary disease with (acute) lower respiratory infection; J11.1 Influenza due to unidentified influenza virus with other respiratory manifestations; E83.42 Hypomagnesemia; E87.6 Hypokalemia; I10 Essential (primary) hypertension; N40.0 Benign prostatic hyperplasia without lower urinary tract symptoms; Z96.653 Presence of artificial knee joint, bilateral; Z96.642 Presence of left artificial hip joint; Z87.891 Personal history of nicotine dependence; Z79.82 Long term (current) use of aspirin; Z79.899 Other long term (current) drug therapy

== ENCOUNTER 2017-10-23 22:01 | Emergency (ER) | payer OTHER, BC ==
[~2017-10-23] VITALS: Ht 180.3 cm; Wt 101.7 kg
[~2017-10-23 22:01] MED LIST changes: -ALBUAER INH; +AZIT-57 PO; -IPRASOL4 INH; +IPRASOL4 NEB; -LACT1TAB4; -SIMV-151 PO; +TMF75 PO
--- NOTE | 2017-10-23 22:27 | DIAGNOSTIC IMAGING REPORT ---
CHEST ONE VIEW PORTABLE CLINICAL HISTORY: Sepsis dyspnea COMPARISON STUDY: 09/19/2017 FINDINGS: Chronic bibasilar like atelectasis. Lungs otherwise are clear. No significant cardiac enlargement. IMPRESSION: No acute process. Minimal chronic basilar atelectatic change. The above report was generated using voice recognition software. It may contain grammatical, syntax or spelling errors. Electronically signed by: Willie Villagomez M.D. 10/23/2017 10:25 PM Dictated Date/Time: 10/23/2017 10:25 PM
[2017-10-23] MEDS ORDERED: ADVIN25/60 INH (22:46)
[2017-10-23] MEDS ORDERED: NRV/10 PO (22:46)
[2017-10-23] MEDS ORDERED: FLNIN/ NAE (22:46)
[2017-10-23] MEDS ORDERED: PRS5 PO (22:46)
[2017-10-23 22:47] VITALS: O2SAT 93; Ht 180.3 cm; Wt 101.7 kg
[2017-10-23] MEDS ORDERED: ALBU18002 INH (22:52)
[2017-10-23 23:00] LABS: BASO % 0.5 %; BASO ABS # 0.05 K/uL (0-0.2); HEMATOCRIT 42.8 % (42-52); HEMOGLOBIN 14.9 g/dL (14.0-18.0); IG# 0.02 K/uL (0.00-0.02); LYMPH % 13.9 %; LYMPH ABS # 1.41 K/uL (1.2-3.4); MEAN CELL VOLUME 91.8 fL (80-100); MEAN CORPUSCULAR HGB CONC 34.8 g/dl (32-36); MEAN PLATELET VOLUME 10.2 fL (7.4-10.4); MONO % 15.1 %; MONO ABS # 1.53 K/uL (0.11-0.59); NEUT % 68.3 %; NEUT ABS # 6.92 K/uL (1.4-6.5); PLATELET COUNT 293 K/uL (130-400); RED CELL DISTRIBUTION WIDTH CV 13.1 % (11.5-14.5); RED CELL DISTRIBUTION WIDTH SD 43.7 fL (36.4-46.3); WHITE BLOOD COUNT 10.13 K/uL (4.8-10.8)
[2017-10-23 23:07] LABS: PTT PATIENT 24.7 SECONDS (21.0-31.0)
[2017-10-23 23:18] LABS: ALBUMIN 3.5 gm/dl (3.4-5.0); ALT/SGPT 24 U/L (12-78); BLOOD UREA NITROGEN 22 mg/dl (7-18); CALCIUM 8.9 mg/dl (8.5-10.1); CARBON DIOXIDE 26 mmol/L (21-32); GLUCOSE 177 mg/dl (70-99); POTASSIUM 3.1 mmol/L (3.5-5.1); SODIUM 137 mmol/L (136-145)
[2017-10-23 23:23] LABS: ALKALINE PHOSPHATASE 61 U/L (45-117); AST/SGOT 26 U/L (15-37); CKMB 4.6 ng/ml (0.5-3.6); TOTAL PROTEIN 7.1 gm/dl (6.4-8.2)
[2017-10-23] MEDS ORDERED: POTASSIUM CHLORIDE 10 MEQ TABCR PO STA (23:29)
[2017-10-23] MEDS ORDERED: MAGNESIUM SULFATE 1GM / D5W 1 GM BAG IV STA (23:29)
[2017-10-23 23:56] LABS: INFLUENZA A PCR Neg for Influ A (NEG); INFLUENZA B PCR Neg for Influ B (NEG)
--- NOTE | 2017-10-24 00:58 | EMERGENCY ROOM VISIT NOTE ---
ED Visit Note First contact with patient: 00:57 (10/24/17) The patient was seen and examined with Ti. I agree with the history, physical and findings. Please see the note for disposition and details. Vital signs stable. Patient's oxygen saturation 92% on room air, he states he has COPD and usually runs a low. He reports not having any more difficulty breathing status post breathing treatments in the emergency department. Potassium and magnesium replaced in the emergency department. Status post breathing treatments patient's peak flow was 450. Patient will be discharged with steroids he states he has prescription for his inhalers.
--- NOTE | 2017-10-24 01:39 | EMERGENCY ROOM VISIT NOTE ---
History First contact with patient: 22:07 Chief Complaint: OTHER COMPLAINT Stated Complaint: FEVER, ACHES History of Present Illness The patient is a 77 year old male who presents to the Emergency Room with complaints of fever, chills, body aches for the past day. T-max 100.1. Patient took Advil and 9 PM tonight. Family called the family care doctor and was advised to go the ER as he had a history of sepsis. Patient denies chest pain, dyspnea, cough, congestion, sore throat, abdominal pain, nausea, vomiting , diarrhea, back pain, urinary symptoms. Patient is tolerating p.o. fluids and food. He has received the flu vaccine and the pneumonia vaccine. Review of Systems An 10 system review of systems was completed with positives and pertinent negatives listed in the HPI. Past Medical/Surgical History Medical Problems: (1) Acute respiratory failure with hypoxia (2) Choledocholithiasis (3) COPD (chronic obstructive pulmonary disease) (4) Hypertension (5) Hypomagnesemia (6) Hypophosphatemia (7) Right lower lobe pneumonia (8) S/P hernia repair (9) Sepsis (10) UTI (lower urinary tract infection) Surgical Problems: (1) S/P hip replacement (2) S/P knee replacement (3) Status post laparoscopic cholecystectomy Family History Hypertension Social History Smoking Status: Never Smoker Alcohol Use: none Drug Use: none Marital Status: Housing Status: lives with significant other Occupation Status: employed, retired Current/Historical Medications Scheduled Amlodipine Besylate (Amlodipine Besylate), 10 MG PO DAILY Aspirin (Aspirin Ec), 81 MG PO DAILY Fiber Laxative (Fiber Laxative), 800 MG PO QPM Finasteride (Finasteride), 5 MG PO DAILY Fluticasone Prop/Salmeterol (Advair Diskus 250/50 60 Dose), 1 PUFF INH BID Fluticasone Propionate (Fluticasone Propionate), 2 SPRAYS SURINDER HS Hydrochlorothiazide (Hydrochlorothiazide), 12.5 MG PO DAILY Ibuprofen (Advil), 400 MG PO BID Omeprazole (Prilosec), 20 MG PO DAILY Scheduled PRN Albuterol Sulfate (Proair Respiclick), 2 PUFFS INH QID PRN for Cough/SOB/Wheeze Ipratropium-Albuterol (Duoneb), 1 TREATMENT NEB Q4H PRN for SOB/Wheezing Physical Exam Vital Signs Date Time Temp Pulse Resp B/P (MAP) Pulse Ox O2 Delivery O2 Flow Rate FiO2 10/24/17 00:29 85 20 140/80 94 Nasal Cannula 2.0 10/23/17 23:36 85 20 118/81 91 Room Air 10/23/17 23:03 79 10/23/17 22:47 93 Room Air 10/23/17 22:04 36.8 85 18 122/67 93 Room Air Physical Exam VITALS: Vitals are noted on the nurse's note and reviewed by myself. Vital signs stable. GENERAL: Pleasant male, in no acute distress, nondiaphoretic, well-developed well-nourished. SKIN: The skin was without rashes, erythema, edema, or bruising. There is no tenting of the skin. Capillary reflex less than 2 seconds. HEAD: Normocephalic atraumatic. EARS: External auditory canals clear, tympanic membranes pearly chiu without erythema or effusion bilaterally. EYES: Pupils equal round and reactive to light and accommodation. Conjunctivae without injection, sclerae without icterus. Extraocular movements intact. NOSE: Patent, turbinates without inflammation or discharge. No sinus tenderness. MOUTH: Mucous membranes moist. Pharynx without erythema or exudate. Uvula midline. Airway patent. Tongue does not deviate. NECK: Supple without nuchal rigidity. No lymphadenopathy. No thyromegaly. Cervical spine is nontender. No JVD. HEART: Regular rate and rhythm LUNGS: Clear to auscultation bilaterally without wheezes, rales or rhonchi. No retractions or accessory muscle use. ABDOMEN: Positive bowel sounds x 4. Normal tympanic percussion. Soft, nontender, without masses or organomegaly. Anderson sign negative. No guarding or rebound tenderness. No CVA tenderness MUSCULOSKELETAL: No muscle atrophy, erythema, or edema noted. NEURO: Patient was alert and oriented to person place and time. Normal sensation to light and sharp touch. No focal neurological deficits. Medical Decision & Procedures Laboratory Results 10/23/17 22:30 Red Blood Count 4.66, Mean Corpuscular Volume 91.8, Mean Corpuscular Hemoglobin 32.0, Mean Corpuscular Hemoglobin Concent 34.8, Mean Platelet Volume 10.2, Neutrophils (%) (Auto) 68.3, Lymphocytes (%) (Auto) 13.9, Monocytes (%) (Auto) 15.1, Eosinophils (%) (Auto) 2.0, Basophils (%) (Auto) 0.5, Neutrophils # (Auto ) 6.92, Lymphocytes # (Auto) 1.41, Monocytes # (Auto) 1.53, Eosinophils # (Auto ) 0.20, Basophils # (Auto) 0.05 10/23/17 22:30 Test 10/23/17 22:30 10/23/17 22:35 10/23/17 22:36 10/23/17 22:43 White Blood Count 10.13 K/uL (4.8-10.8) Red Blood Count 4.66 M/uL (4.7-6.1) Hemoglobin 14.9 g/dL (14.0-18.0) Hematocrit 42.8 % (42-52) Mean Corpuscular Volume 91.8 fL (80-100) Mean Corpuscular Hemoglobin 32.0 pg (25-34) Mean Corpuscular Hemoglobin Concent 34.8 g/dl (32-36) Platelet Count 293 K/uL (130-400) Mean Platelet Volume 10.2 fL (7.4-10.4) Neutrophils (%) (Auto) 68.3 % Lymphocytes (%) (Auto) 13.9 % Monocytes (%) (Auto) 15.1 % Eosinophils (%) (Auto) 2.0 % Basophils (%) (Auto) 0.5 % Neutrophils # (Auto) 6.92 K/uL (1.4-6.5) Lymphocytes # (Auto) 1.41 K/uL (1.2-3.4) Monocytes # (Auto) 1.53 K/uL (0.11-0.59) Eosinophils # (Auto) 0.20 K/uL (0-0.5) Basophils # (Auto) 0.05 K/uL (0-0.2) RDW Standard Deviation 43.7 fL (36.4-46.3) RDW Coefficient of Variation 13.1 % (11.5-14.5) Immature Granulocyte % (Auto) 0.2 % Immature Granulocyte # (Auto) 0.02 K/uL (0.00-0.02) Prothrombin Time 10.8 SECONDS (9.0-12.0) Prothromb Time International Ratio 1.0 (0.9-1.1) Activated Partial Thromboplast Time 24.7 SECONDS (21.0-31.0) Partial Thromboplastin Ratio 1.0 Anion Gap 9.0 mmol/L (3-11) Est Creatinine Clear Calc Drug Dose 60.6 ml/min Estimated GFR () 66.3 Estimated GFR (Non- 57.2 BUN/Creatinine Ratio 18.2 (10-20) Calcium Level 8.9 mg/dl (8.5-10.1) Magnesium Level 1.4 mg/dl (1.8-2.4) Total Bilirubin 0.4 mg/dl (0.2-1) Aspartate Amino Transf (AST/SGOT) 26 U/L (15-37) Alanine Aminotransferase (ALT/SGPT) 24 U/L (12-78) Alkaline Phosphatase 61 U/L (45-117) Total Creatine Kinase 378 U/L (39-308) Creatine Kinase MB 4.6 ng/ml (0.5-3.6) Creatine Kinase MB Ratio 1.2 (0-3.0) Troponin I < 0.015 ng/ml (0-0.045) Total Protein 7.1 gm/dl (6.4-8.2) Albumin 3.5 gm/dl (3.4-5.0) Globulin 3.6 gm/dl (2.5-4.0) Albumin/Globulin Ratio 1.0 (0.9-2) Procalcitonin 0.21 ng/ml (0-0.5) Influenza Type A (RT-PCR) Neg for Influ A (NEG) Influenza Type B (RT-PCR) Neg for Influ B (NEG) Urine Color YELLOW Urine Appearance CLEAR (CLEAR) Urine pH 5.0 (4.5-7.5) Urine Specific [place] 1.021 (1.000-1.030) Urine Protein NEG (NEG) Urine Glucose (UA) NEG (NEG) Urine Ketones NEG (NEG) Urine Occult Blood NEG (NEG) Urine Nitrite NEG (NEG) Urine Bilirubin NEG (NEG) Urine Urobilinogen NEG (NEG) Urine Leukocyte Esterase NEG (NEG) Urine WBC (Auto) 1-5 /hpf (0-5) Urine RBC (Auto) 0-4 /hpf (0-4) Urine Hyaline Casts (Auto) 0 /lpf (0-5) Urine Epithelial Cells (Auto) 0-5 /lpf (0-5) Urine Bacteria (Auto) NEG (NEG) Bedside Lactic Acid Venous 1.38 mmol/L (0.90-1.70) Bedside Troponin I < 0.030 ng/ml (0-0.045) Medications Administered Medications (Trade) Dose Ordered Sig/Kathrine Route Start Time Stop Time Status Last Admin Dose Admin Magnesium Sulfate (Magnesium Sulfate) 2 gm NOW STAT IV 10/23/17 23:29 10/23/17 23:30 DC 10/23/17 23:42 2 GM Potassium Chloride (Klor-Con M10) 40 meq NOW STAT PO 10/23/17 23:29 10/23/17 23:30 DC 10/23/17 23:42 40 MEQ ED Course Prior records/ancillary studies reviewed. Triage Nursing notes reviewed. Additional history obtained from family The patient's history was concerning for fever. Differential diagnosis: Etiologies such as viral syndrome, otitis, pharyngitis, pneumonia, influenza, meningitis, urinary tract infection, sepsis, bacteremia, as well as others were entertained. Physical examination: Patient is alert, oriented tolerating fluids ER treatment provided: Steroids, nebulizer On reassessment the patient felt better. Diagnostics interpreted by me: ECG: Normal sinus, normal intervals, occasional PVC, T-wave inversions in V5 V6 , EKG compared to prior EKG from last month with no acute changes noted. Impression normal sinus rhythm with occasional PVC and T-wave inversions in the lateral leads interpreted by myself The labs revealed hypokalemia and low magnesium and this is replaced. Negative troponin. Negative flu Imaging studies: Chest x-ray with no acute consolidation, pneumothorax or free of my interpretation This appears to be consistent with bronchitis with COPD. Patient felt much better to be medicated as above. No pneumonia. No leukocytosis. Negative flu. Patient's O2 sats did drop slightly while the patient was resting but came up on their own without difficulties. Patient states his O2 sats normally run around 90-92%. Patient was neurovascularly and neurologically intact. He is well-appearing. He is tolerating fluids. He was advised to rest, stay well- hydrated and to take medicines as directed. He is advised to follow-up family care in a day or 2 here in the ER sooner for high fevers, lethargy, difficulty breathing, worsening signs or symptoms or as needed. By the evaluation outlined above emergent etiologies such as otitis, pharyngitis, pneumonia, meningitis, urinary tract infection, sepsis, bacteremia, as well as others were deemed relatively unlikely. The pt informed about the findings as listed above. All questions were answered and pleased with the treatment. Return instructions were outlined and the patient was discharged in stable condition. Outpatient prescription management: Prednisone Referral: The patient was referred back to their primary care physician for follow-up in 2 to 3 days for a recheck of the current condition. Case reviewed with my attending The chart was completed utilizing [employer] Speech voice recognition software. Grammatical errors, random word insertions, pronoun errors, and incomplete sentences are an occassional consequence of this system due to software limitations, ambient noise, and hardware issues. Any formal questions or concerns about the content, text, or information contained within the body of this dictation should be directly addressed to the physician acute care assistant for clarification. Medical Decision As above Medication Reconcilliation Current Medication List: was personally reviewed by me Blood Pressure Screening Patient's blood pressure: Normal blood pressure Impression Primary Impression: COPD with acute bronchitis Additional Impressions: Hypokalemia Hypomagnesemia Departure Information Dispostion Home / Self-Care Condition GOOD Referrals No Doctor, Assigned (PCP) Patient Instructions My [facility] Additional Instructions Acetaminophen(Tylenol) may be used for fever or pain. Use 1000mg every six hours as needed. Avoid using more than 3000mg in a 24 hour period. (AND/OR) Ibuprofen(Motrin, Advil) may be used for fever or pain. Use 600mg every six hours as needed. Take with food. Avoid using more than 2400mg in a 24 hour period. Do not use 2400mg per day for more than three consecutive days without physician direction. Prolonged inappropriate use can lead to stomach upset or ulcers. Prednisone as directed. Albuterol Inhaler: Take 2 puffs four times daily for seven days, then as needed. Rest and drink plenty of fluids. Controlling your fever with Tylenol and Ibuprofen as above will make you feel better. Wash your hands after nose blowing, sneezing, or coughing. Most germs are spread through contact, therefore improper hygiene may result in your close contacts and loved ones becoming ill just like you. Continue current medications. Return to the ER for severe headache, neck stiffness, chest pain, difficulty breathing, fevers, vomiting, worsening of your condition, or as needed. Follow up with your primary physician this week for a recheck of your current condition. Problem Qualifiers
[2017-10-24] MEDS ORDERED: PRED50TA PO (01:41)
[2017-10-24 02:05] VITALS: BP 128/81; PULSE 78; TEMP 36.8; O2SAT 92
== END 2017-10-24 02:07 | disposition home or self-care (01) ==
LOC: C.EDB 22:02 → C.EDA 10-24 02:07
DX: J44.0 Chronic obstructive pulmonary disease with (acute) lower respiratory infection (principal); E87.6 Hypokalemia; E83.42 Hypomagnesemia; I10 Essential (primary) hypertension; E83.39 Other disorders of phosphorus metabolism; Z87.01 Personal history of pneumonia (recurrent); Z87.440 Personal history of urinary (tract) infections; Z96.649 Presence of unspecified artificial hip joint; Z96.659 Presence of unspecified artificial knee joint; Z82.49 Family history of ischemic heart disease and other diseases of the circulatory system; Z79.82 Long term (current) use of aspirin; Z79.899 Other long term (current) drug therapy

== ENCOUNTER → 2017-10-31 | Outpatient (CLI) | payer OTHER, BC ==
[~2017-10-31] MED LIST changes: +ADVIN25/60 INH; +ALBU18002 INH; -AMLO-114 PO; -AZIT-57 PO; -FINA5TAB4 PO; +FLNIN/ NAE; -FLUT0.15 NAE; +NRV/10 PO; +PRS5 PO; -TMF75 PO
[2017-10-31 13:07] LABS: ALBUMIN 3.6 gm/dl (3.4-5.0); BLOOD UREA NITROGEN 19 mg/dl (7-18); CALCIUM 9.5 mg/dl (8.5-10.1); CARBON DIOXIDE 28 mmol/L (21-32); GLUCOSE 153 mg/dl (70-99); POTASSIUM 3.7 mmol/L (3.5-5.1); SODIUM 137 mmol/L (136-145)
[2017-10-31 13:08] LABS: PHOSPHORUS 3.3 mg/dl (2.5-4.9)
== END | disposition home or self-care (01) ==
LOC: C.LABMFLN 08:32
PROVIDERS: ATTEND Family Medicine
DX: E87.6 Hypokalemia (principal)

== ENCOUNTER → 2017-11-27 | Outpatient (CLI) | payer OTHER, BC ==
[~2017-11-27] MED LIST changes: +OPTIRAY 320 IV PRN
--- NOTE | 2017-11-27 12:46 | DIAGNOSTIC IMAGING REPORT ---
CHEST CT WITH CONTRAST CT DOSE: 701.23 mGy.cm HISTORY: R91.1 Pulmonary nodules TECHNIQUE: Multiaxial CT images of the chest were performed following the intravenous administration of contrast. A dose lowering technique was utilized adhering to the principles of ALARA. COMPARISON: Chest CT 01/17/2016. FINDINGS: There are 2, 5 mm subpleural nodule seen within the left lower lobe on images 214 and 231. These are not significantly changed in size compared to the prior study. Tree-in-bud nodular opacities with bronchial wall thickening within the right lower lobe. This favors a mild infectious bronchiolitis. Linear scarlike densities within the right lung are not significantly changed. No pneumothorax. No pleural effusions. Trace mucoid material within the right mainstem bronchus. The central airways are patent. No pleural or pericardial effusions. Normal caliber thoracic aorta with no evidence for dissection. Mediastinal lymph nodes measure subcentimeter in short axis diameter and are not significantly changed. A few prominent right hilar lymph nodes which may be reactive. Pneumobilia. Cholecystectomy. No hepatic or splenic masses. Normal adrenal glands. Focal 2.2 cm consolidation within the posterior base of the right lower lobe. This also favors inflammatory/infectious change. IMPRESSION: 1. Stable subcentimeter pulmonary nodules within the left lower lobe. These demonstrate near 2 year stability. 2. Tree-in-bud nodular opacities and bronchial wall thickening within the right lower lobe. This is consistent with an infectious bronchiolitis. 3. There is also a focal 2.2 cm consolidation within the base of the right lower lobe. This also favors a pneumonia. However, six-month chest CT follow up is recommended to ensure resolution of these findings. Electronically signed by: Brown Chavez M.D. 11/27/2017 12:44 PM Dictated Date/Time: 11/27/2017 12:33 PM
== END | disposition home or self-care (01) ==
LOC: C.CTS 11:28
PROVIDERS: ATTEND Internal Medicine Pulmonary Disease
DX: R91.1 Solitary pulmonary nodule (principal)

== ENCOUNTER → 2017-12-08 | Outpatient (CLI) | payer OTHER, BC ==
[~2017-12-08] MED LIST changes: +ALL60 PO; +AZIT-57 PO; +CEFD300C3 PO; +GFNSR600 PO; -OPTIRAY 320 IV PRN; +PRED10TA PO; +SYMIN160 INH; +TPRSR25 PO
[2017-12-08 12:59] LABS: BASO % 0.8 %; BASO ABS # 0.07 K/uL (0-0.2); EOS % 6.1 %; EOS ABS # 0.54 K/uL (0-0.5); HEMATOCRIT 44.2 % (42-52); HEMOGLOBIN 14.8 g/dL (14.0-18.0); IG# 0.02 K/uL (0.00-0.02); LYMPH % 18.1 %; MEAN CELL VOLUME 95.3 fL (80-100); MEAN CORPUSCULAR HEMOGLOBIN 31.9 pg (25-34); MEAN CORPUSCULAR HGB CONC 33.5 g/dl (32-36); MEAN PLATELET VOLUME 10.7 fL (7.4-10.4); MONO % 9.7 %; MONO ABS # 0.86 K/uL (0.11-0.59); NEUT % 65.1 %; NEUT ABS # 5.74 K/uL (1.4-6.5); PLATELET COUNT 358 K/uL (130-400); RED CELL DISTRIBUTION WIDTH CV 13.4 % (11.5-14.5); RED CELL DISTRIBUTION WIDTH SD 46.5 fL (36.4-46.3); WHITE BLOOD COUNT 8.83 K/uL (4.8-10.8)
[2017-12-08 13:13] LABS: PTT PATIENT 25.1 SECONDS (21.0-31.0)
[2017-12-08 13:16] LABS: ALBUMIN 3.7 gm/dl (3.4-5.0); ALT/SGPT 26 U/L (12-78); AST/SGOT 22 U/L (15-37); BLOOD UREA NITROGEN 16 mg/dl (7-18); CALCIUM 9.5 mg/dl (8.5-10.1); CARBON DIOXIDE 29 mmol/L (21-32); CREATININE 1.17 mg/dl (0.60-1.40); GLUCOSE 140 mg/dl (70-99); POTASSIUM 3.8 mmol/L (3.5-5.1); SODIUM 139 mmol/L (136-145)
[2017-12-08 13:28] LABS: ALKALINE PHOSPHATASE 59 U/L (45-117); TOTAL PROTEIN 7.3 gm/dl (6.4-8.2)
== END | disposition home or self-care (01) ==
LOC: C.LABMFLN 08:27
PROVIDERS: ATTEND Internal Medicine Pulmonary Disease
DX: R91.1 Solitary pulmonary nodule (principal); N40.1 Benign prostatic hyperplasia with lower urinary tract symptoms; J44.9 Chronic obstructive pulmonary disease, unspecified; J47.9 Bronchiectasis, uncomplicated

== ENCOUNTER 2017-12-09 17:36 | Inpatient (IN) | payer OTHER, BC ==
[~2017-12-09] VITALS: Ht 180.3 cm; Wt 102.4 kg
[~2017-12-09 17:36] MED LIST changes: -ALL60 PO; -AZIT-57 PO; -CEFD300C3 PO; -GFNSR600 PO; -PRED10TA PO; -SYMIN160 INH; -TPRSR25 PO
[2017-12-09] MEDS ORDERED: SODIUM CHLORIDE 0.9% 1000ML 1,000 ML IV STA (18:01)
[2017-12-09] MEDS ORDERED: SODIUM CHLORIDE 0.9% 1000ML 1,000 ML IV ONE (18:01)
--- NOTE | 2017-12-09 18:08 | EMERGENCY ROOM VISIT NOTE ---
History Report prepared by Colten: Pantera Martinez Under the Supervision of: Dr. Jeremy Hill M.D. First contact with patient: 17:51 Chief Complaint: ILLNESS Stated Complaint: ILLNESS History of Present Illness The patient is a 77 year old male who presents to the Emergency Room with complaints of persistent, severe sinus drainage beginning this morning. The patient notes that he felt fine "off" this morning and had a fever of 99.9. He reports that he mowed his lawn and afterwards developed heavy, clumpy, yellow drainage from his sinuses as well as a cough. The patient states that he has a history of COPD and administered a home treatment which improved his symptoms. He reports that he also suctioned his nose and utilized a Netipot to drain his sinuses. He reports that his present symptoms are currently resolved. The patient denies any abdominal pain, urinary symptoms, headache, sore throat, lower extremity swelling, joint pain, diarrhea, vomiting, back pain, or shakiness. The patient notes experiencing chills and a possible history of seasonal allergies. 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 The patient states that he takes a 1 baby aspirin every day. Source of History: patient Onset: This morning Position: head Symptom Intensity: severe Quality: other (drainage) Timing: other (persistent ) Modifying Factors (Relieving): other (COPD treatment, sinus drain) Associated Symptoms: + fevers ( 99.9), No headache, No sorethroat, No vomiting, No abdominal pain, No back pain, No diarrhea, No urinary symptoms Note: Denies: Lower extremity swelling, joint pain, and shakiness. Review of Systems See HPI for pertinent positives & negatives. A total of 10 systems reviewed and were otherwise negative. Past Medical & Surgical Medical Problems: (1) Acute respiratory failure with hypoxia (2) Bronchopneumonia (3) Choledocholithiasis (4) COPD (chronic obstructive pulmonary disease) (5) Hypertension (6) Hypomagnesemia (7) Hypophosphatemia (8) Right lower lobe pneumonia (9) S/P hernia repair (10) Sepsis (11) UTI (lower urinary tract infection) Surgical Problems: (1) S/P hip replacement (2) S/P knee replacement (3) Status post laparoscopic cholecystectomy Old medical records were reviewed. Nurse's notes were reviewed and I agree with. Family History Hypertension Social History Smoking Status: Never Smoker Alcohol Use: none Drug Use: none Marital Status: Housing Status: lives with significant other Occupation Status: employed, retired Current/Historical Medications Scheduled Amlodipine Besylate (Amlodipine Besylate), 10 MG PO DAILY Aspirin (Aspirin Ec), 81 MG PO DAILY Budesonide/Formoterol Fumarate (Symbicort 160/4.5 Inhaler), 2 PUFFS INH BID Fiber Laxative (Fiber Laxative), 800 MG PO QPM Finasteride (Finasteride), 5 MG PO DAILY Fluticasone Propionate (Fluticasone Propionate), 2 SPRAYS SURINDER HS Hydrochlorothiazide (Hydrochlorothiazide), 12.5 MG PO DAILY Ibuprofen (Advil), 400 MG PO BID Omeprazole (Prilosec), 20 MG PO DAILY Scheduled PRN Albuterol Sulfate (Proair Respiclick), 2 PUFFS INH QID PRN for Cough/SOB/Wheeze Ipratropium-Albuterol (Duoneb), 1 TREATMENT NEB Q4H PRN for SOB/Wheezing Allergies Coded Allergies: Levofloxacin (Verified Allergy, Unknown, facial swelling, 05/10/16) Morphine (Verified Adverse Reaction, Unknown, MIGRAINE, 05/10/16) Physical Exam Vital Signs Date Time Temp Pulse Resp B/P (MAP) Pulse Ox O2 Delivery O2 Flow Rate FiO2 12/09/17 20:27 93 Nasal Cannula 2.0 12/09/17 20:20 69 18 138/62 90 Room Air 12/09/17 18:24 37.6 12/09/17 17:39 36.7 79 18 141/70 91 Room Air Physical Exam General: Non-ill appearing middle aged male in no acute distress. HEENT: Normal cephalic atraumatic. Pupils are equal round and reactive to light. Extraocular movements are intact. Oropharynx is pink with moist mucous membranes. No swelling of the mouth lips or tongue. Neck: Supple with a midline trachea. No meningeal signs or stiffness, no JVD or bruits. No Stridor. Chest: Clear to auscultation bilaterally. No wheezes or rhonchi. No increased work of breathing. Heart: regular rate and rhythm. Abdomen: Soft nontender, nondistended without rebound guarding or rigidity. Extremities: No cyanosis clubbing or edema. No calf tenderness or assymetry Spine/Back. Non tender to palpation. No CVA tenderness Skin: Good turgor without rashes. Neurologic exam: Cranial nerves two through 12 are intact. Motor and sensation are intact and symmetrical throughout. Medical Decision & Procedures ER Provider Diagnostic Interpretation: Radiology results as stated below per my review and radiologist interpretation: [~ rep ct add3]] SINGLE VIEW CHEST CLINICAL HISTORY: Atypical chest pain. FINDINGS: 2 AP, portable, upright chest radiographs are compared to study dated 10/23/2017 and correlated with chest CT dated 11/27/2017. The examination is degraded by portable technique and patient rotation. The heart is enlarged and there is atherosclerotic calcification of the thoracic aorta. The pulmonary vasculature is noncongested. Chronic elevation of right hemidiaphragm is similar to previous and there is bibasilar atelectasis. Patchy airspace consolidation is seen in the right midlung. No large pleural effusion or pneumothorax is seen. The skeletal structures are osteopenic. The bony thorax is grossly intact. Calcified joint bodies are noted in the right shoulder. IMPRESSION: 1. Cardiomegaly without radiographic evidence of congestive failure. 2. Patchy airspace consolidation is seen in the right midlung. Correlate clinically for evidence of an infectious/inflammatory pneumonitis. Radiographic follow-up to resolution is recommended. Electronically signed by: Familia Santos M.D. 12/09/2017 7:01 PM Dictated Date/Time: 12/09/2017 6:59 PM Laboratory Results 12/09/17 18:20 Red Blood Count 4.50, Mean Corpuscular Volume 92.4, Mean Corpuscular Hemoglobin 32.2, Mean Corpuscular Hemoglobin Concent 34.9, Mean Platelet Volume 10.6, Neutrophils (%) (Auto) 80.4, Lymphocytes (%) (Auto) 9.9, Monocytes (%) (Auto) 7.0, Eosinophils (%) (Auto) 1.9, Basophils (%) (Auto) 0.5, Neutrophils # (Auto) 12.74, Lymphocytes # (Auto) 1.57, Monocytes # (Auto) 1.11, Eosinophils # (Auto) 0.30, Basophils # (Auto) 0.08 12/09/17 18:20 Test 12/09/17 18:17 12/09/17 18:20 Bedside Lactic Acid Venous 1.19 mmol/L (0.90-1.70) White Blood Count 15.85 K/uL (4.8-10.8) Red Blood Count 4.50 M/uL (4.7-6.1) Hemoglobin 14.5 g/dL (14.0-18.0) Hematocrit 41.6 % (42-52) Mean Corpuscular Volume 92.4 fL (80-100) Mean Corpuscular Hemoglobin 32.2 pg (25-34) Mean Corpuscular Hemoglobin Concent 34.9 g/dl (32-36) Platelet Count 328 K/uL (130-400) Mean Platelet Volume 10.6 fL (7.4-10.4) Neutrophils (%) (Auto) 80.4 % Lymphocytes (%) (Auto) 9.9 % Monocytes (%) (Auto) 7.0 % Eosinophils (%) (Auto) 1.9 % Basophils (%) (Auto) 0.5 % Neutrophils # (Auto) 12.74 K/uL (1.4-6.5) Lymphocytes # (Auto) 1.57 K/uL (1.2-3.4) Monocytes # (Auto) 1.11 K/uL (0.11-0.59) Eosinophils # (Auto) 0.30 K/uL (0-0.5) Basophils # (Auto) 0.08 K/uL (0-0.2) RDW Standard Deviation 43.9 fL (36.4-46.3) RDW Coefficient of Variation 12.9 % (11.5-14.5) Immature Granulocyte % (Auto) 0.3 % Immature Granulocyte # (Auto) 0.05 K/uL (0.00-0.02) Anion Gap 7.0 mmol/L (3-11) Est Creatinine Clear Calc Drug Dose 67.0 ml/min Estimated GFR () 74.4 Estimated GFR (Non- 64.2 BUN/Creatinine Ratio 15.8 (10-20) Calcium Level 9.1 mg/dl (8.5-10.1) Total Bilirubin 0.7 mg/dl (0.2-1) Direct Bilirubin 0.1 mg/dl (0-0.2) Aspartate Amino Transf (AST/SGOT) 25 U/L (15-37) Alanine Aminotransferase (ALT/SGPT) 24 U/L (12-78) Alkaline Phosphatase 56 U/L (45-117) Total Protein 7.2 gm/dl (6.4-8.2) Albumin 3.5 gm/dl (3.4-5.0) Lipase 92 U/L (73-393) Laboratory studies as stated above per my review. Medications Administered Medications (Trade) Dose Ordered Sig/Kathrine Route Start Time Stop Time Status Last Admin Dose Admin Sodium Chloride 1,000 ml @ 999 mls/hr Q1H1M STAT IV 12/09/17 18:01 12/09/17 19:01 DC 12/09/17 18:46 999 MLS/HR Piperacillin Sod/ Tazobactam Sod (Zosyn Iv) 4.5 gm NOW STAT IV 12/09/17 18:50 12/09/17 18:51 DC 12/09/17 19:14 4.5 GM ECG Per My Interpretation Indication: weakness Rate (beats per minute): 95 Rhythm: normal sinus Findings: PAC, PVC, RBBB (incomplete ), other (nonspecific t wave abnormalities. ) Comparison ECG Date: october 23 2017 Change: no significant change ED Course 1751: Past medical records reviewed. The patient was evaluated in room A2, and a complete history and physical examination were performed. 1800: Ordered Sodium Chloride 1000 ml @ 150 mls/hr IV and Sodium Chloride 1000 ml @ 999 mls/hr IV 1849: Ordered Zosyn IV 4.5gm IV. 1851: I reevaluated the patient. He is resting comfortably. I may admit the patient given his history of sepsis and the fact that I have ordered antibiotics. 1918: I discussed the patient's case with Dr. Ralph - [facility], he will evaluate the patient for further treatment and care. 1945: Dr. Ralph is evaluating the patient at bedside. Medical Decision Differentials include, but are not limited to; Sinusitis, pneumonia, sepsis, UTI , electrolyte or metabolic abnormality. This patient comes in as described above. He was placed in room A2. He had a low-grade temperature of 99 at home. He has had some chronic lung issues and in fact is scheduled for bronchial Monday. He had some sinus issues today after mowing. [place] he has had several episodes of sepsis with E. coli over the last couple years. IV access established and blood work was obtained. Although he had no temperature here initially when we rechecked him, he now has a low-grade temperature. Lactic acid is not elevated however his white count is 15,000 up from 8000 from yesterday. His chest x-ray am concerned that he could have a pneumonia in the left base some of that sounds like it may be chronic he was given Zosyn 4.5 g IV given his history of sepsis. He was reassessed frequently. He was also hydrated with an IV normal saline bolus 1 L IV. The rest of his electrolytes look unremarkable. He will be admitted for pneumonia and possible early sepsis. Dr. Morataya was consulted and saw him in the ER for these measures. Medication Reconcilliation Current Medication List: was personally reviewed by me Blood Pressure Screening Patient's blood pressure: Elevated blood pressure Blood pressure disposition: Elevated BP felt to be situational Consults Time Called: 1914 Consulting Physician: Dr. Ramo Franco [facility] Returned Call: 1918 1918: I discussed the patient's case with Dr. Ramo Franco [facility], he will evaluate the patient for further treatment and care. Impression Primary Impression: PNA (pneumonia) Scribe Attestation The scribe's documentation has been prepared under my direction and personally reviewed by me in its entirety. I confirm that the note above accurately reflects all work, treatment, procedures, and medical decision making performed by me. Departure Information Dispostion Being Evaluated By Hospitalist Referrals No Doctor, Assigned (PCP) Patient Instructions [facility]
[2017-12-09 18:34] LABS: BASO % 0.5 %; BASO ABS # 0.08 K/uL (0-0.2); EOS % 1.9 %; HEMATOCRIT 41.6 % (42-52); HEMOGLOBIN 14.5 g/dL (14.0-18.0); IG# 0.05 K/uL (0.00-0.02); LYMPH % 9.9 %; LYMPH ABS # 1.57 K/uL (1.2-3.4); MEAN CELL VOLUME 92.4 fL (80-100); MEAN CORPUSCULAR HEMOGLOBIN 32.2 pg (25-34); MEAN CORPUSCULAR HGB CONC 34.9 g/dl (32-36); MEAN PLATELET VOLUME 10.6 fL (7.4-10.4); MONO ABS # 1.11 K/uL (0.11-0.59); NEUT % 80.4 %; NEUT ABS # 12.74 K/uL (1.4-6.5); PLATELET COUNT 328 K/uL (130-400); RED CELL DISTRIBUTION WIDTH CV 12.9 % (11.5-14.5); RED CELL DISTRIBUTION WIDTH SD 43.9 fL (36.4-46.3); WHITE BLOOD COUNT 15.85 K/uL (4.8-10.8)
[2017-12-09] MEDS ORDERED: SYMIN160 INH (18:34)
[2017-12-09] MEDS ORDERED: PIPERACILLIN/TAZOBACTAM 4.5 GM/100ML D5W IV STA (18:50)
[2017-12-09 19:02] LABS: ALBUMIN 3.5 gm/dl (3.4-5.0); CALCIUM 9.1 mg/dl (8.5-10.1); CREATININE 1.09 mg/dl (0.60-1.40); POTASSIUM 3.6 mmol/L (3.5-5.1)
--- NOTE | 2017-12-09 19:03 | DIAGNOSTIC IMAGING REPORT ---
SINGLE VIEW CHEST CLINICAL HISTORY: Atypical chest pain. FINDINGS: 2 AP, portable, upright chest radiographs are compared to study dated 10/23/2017 and correlated with chest CT dated 11/27/2017. The examination is degraded by portable technique and patient rotation. The heart is enlarged and there is atherosclerotic calcification of the thoracic aorta. The pulmonary vasculature is noncongested. Chronic elevation of right hemidiaphragm is similar to previous and there is bibasilar atelectasis. Patchy airspace consolidation is seen in the right midlung. No large pleural effusion or pneumothorax is seen. The skeletal structures are osteopenic. The bony thorax is grossly intact. Calcified joint bodies are noted in the right shoulder. IMPRESSION: 1. Cardiomegaly without radiographic evidence of congestive failure. 2. Patchy airspace consolidation is seen in the right midlung. Correlate clinically for evidence of an infectious/inflammatory pneumonitis. Radiographic follow-up to resolution is recommended. Electronically signed by: Familia Santos M.D. 12/09/2017 7:01 PM Dictated Date/Time: 12/09/2017 6:59 PM
[2017-12-09 19:05] LABS: TOTAL PROTEIN 7.2 gm/dl (6.4-8.2)
[2017-12-09] MEDS ORDERED: PIPERACILL/TAZOBAC CONSULT ACTIVE PRN (19:45)
[2017-12-09] MEDS ORDERED: MAGNESIUM HYDROXIDE SUSP 30 ML UDC PO PRN (19:45)
[2017-12-09] MEDS ORDERED: ALUMINUM/MAGNESIUM/SIMETH (MAALOX MAX) 30 ML UDC PO PRN (19:45)
[2017-12-09] MEDS ORDERED: ACETAMINOPHEN 325 MG TAB PO PRN (19:45)
[2017-12-09] MEDS ORDERED: POLYETHYLENE (MIRALAX) 17 GM PACK PO PRN (19:45)
[2017-12-09] MEDS ORDERED: AZITHROMYCIN 250 MG TAB PO ONE (19:45)
[2017-12-09] MEDS ORDERED: VANCOMYCIN CONSULT ACTIVE PRN (19:45)
[2017-12-09] MEDS ORDERED: ONDANSETRON 8MG OD TAB PO PRN (19:45)
--- NOTE | 2017-12-09 20:11 | History and Physical ---
History & Physical Date & Time of Service: Dec 09, 2017 at 20:11 Chief Complaint: Illness Primary Care Physician: Fiona Stafford M.D. History of Present Illness Source: patient, hospital records The patient is a 77-year-old male who presents to the emergency department with symptoms that began initially as sinus drainage this morning, that then progressed into a productive cough and worsening thick, yellow sinus drainage after mowing his lawn. He did utilize a home nebulizer treatment and a [place] pot, with some improvement in symptoms however, his cough and drainage worsened as the day went on, he developed chills, and has presented to the emergency department for assessment. 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 He has not had any recent travels or sick exposures. Is otherwise not had any significant change in exercise pattern, eating pattern or daily activities, and reports that he has been getting his usual sleep. Past Medical/Surgical History Medical Problems: (1) Acute respiratory failure with hypoxia (2) Bronchopneumonia (3) Choledocholithiasis (4) COPD (chronic obstructive pulmonary disease) (5) COPD with acute bronchitis (6) Febrile illness, acute (7) Hypertension (8) Hypokalemia (9) Hypomagnesemia (10) Hypophosphatemia (11) Hypoxia (12) Pneumonia (13) Right lower lobe pneumonia (14) S/P hernia repair (15) Sepsis (16) SIRS (systemic inflammatory response syndrome) (17) SIRS (systemic inflammatory response syndrome) (18) UTI (lower urinary tract infection) Surgical Problems: (1) S/P hip replacement (2) S/P knee replacement (3) Status post laparoscopic cholecystectomy Family History Hypertension Social History Smoking Status: Never Smoker Smokeless Tobacco Use: No Alcohol Use: none Drug Use: none Marital Status: Housing status: lives with significant other Occupational Status: employed, retired Immunizations History of Influenza Vaccine: Unknown History of Tetanus Vaccine?: Unknown History of Pneumococcal: Unknown History of Hepatitis B Vaccine: Unknown Allergies Coded Allergies: Levofloxacin (Verified Allergy, Unknown, facial swelling, 05/10/16) Morphine (Verified Adverse Reaction, Unknown, MIGRAINE, 05/10/16) Home Medications Scheduled Amlodipine Besylate (Amlodipine Besylate), 10 MG PO DAILY Aspirin (Aspirin Ec), 81 MG PO DAILY Budesonide/Formoterol Fumarate (Symbicort 160/4.5 Inhaler), 2 PUFFS INH BID Fiber Laxative (Fiber Laxative), 800 MG PO QPM Finasteride (Finasteride), 5 MG PO DAILY Fluticasone Propionate (Fluticasone Propionate), 2 SPRAYS SURINDER HS Hydrochlorothiazide (Hydrochlorothiazide), 12.5 MG PO DAILY Ibuprofen (Advil), 400 MG PO BID Omeprazole (Prilosec), 20 MG PO DAILY Scheduled PRN Albuterol Sulfate (Proair Respiclick), 2 PUFFS INH QID PRN for Cough/SOB/Wheeze Ipratropium-Albuterol (Duoneb), 1 TREATMENT NEB Q4H PRN for SOB/Wheezing Review of Systems The patient denies chest pain, palpitations, lower extremity swelling, sore throat, sweats, nausea, vomiting, diarrhea , constipation, abdominal pain, pelvic pain, blood in urine or stool, dysuria, urinary frequency or urgency, lightheadedness , dizziness, headache, memory loss, loss of consciousness, rash, abnormal bruising or bleeding, imbalance, focal or generalized weakness, numbness or tingling in arms or legs, generalized arthralgias or myalgias, back or neck pain, or night sweats. The review of systems is otherwise negative other than for that already noted above, and at least 10 systems have been reviewed. Physical Exam Vital Signs Date Time Temp Pulse Resp B/P (MAP) Pulse Ox O2 Delivery O2 Flow Rate FiO2 12/09/17 18:24 37.6 12/09/17 17:39 36.7 79 18 141/70 91 Room Air The patient is awake, alert and oriented 3, well developed and well nourished, normocephalic and atraumatic, lying in bed and in no acute distress. HEENT--PERRL, EOMI, mucous membranes and oropharynx dry. Neck--supple. No JVD. No bruits. Thyroid normal, trachea midline, no adenopathy. Heart--normal S1 and S2. No murmurs, rubs or gallops. Lungs--coarse breath sounds with wheezes bilaterally. Abdomen--normal bowel sounds and soft. Nontender. Nondistended, no hernias or masses, no organomegaly. Extremities--no cyanosis or clubbing. No edema. There are good distal pulses b/ l. Dermatologic--normal skin turgor, normal color, no abnormal lymph nodes, no rash. Neurologic--cranial nerves II through XII grossly intact. Rheumatologic--normal range of motion. Psychiatric--normal affect. Diagnostics Laboratory Results Results Past 24 Hours Test 12/09/17 18:17 12/09/17 18:20 Range/Units Bedside Lactic Acid Venous 1.19 0.90-1.70 mmol/L White Blood Count 15.85 4.8-10.8 K/uL Red Blood Count 4.50 4.7-6.1 M/uL Hemoglobin 14.5 14.0-18.0 g/dL Hematocrit 41.6 42-52 % Mean Corpuscular Volume 92.4 80-100 fL Mean Corpuscular Hemoglobin 32.2 25-34 pg Mean Corpuscular Hemoglobin Concent 34.9 32-36 g/dl Platelet Count 328 130-400 K/uL Mean Platelet Volume 10.6 7.4-10.4 fL Neutrophils (%) (Auto) 80.4 % Lymphocytes (%) (Auto) 9.9 % Monocytes (%) (Auto) 7.0 % Eosinophils (%) (Auto) 1.9 % Basophils (%) (Auto) 0.5 % Neutrophils # (Auto) 12.74 1.4-6.5 K/uL Lymphocytes # (Auto) 1.57 1.2-3.4 K/uL Monocytes # (Auto) 1.11 0.11-0.59 K/uL Eosinophils # (Auto) 0.30 0-0.5 K/uL Basophils # (Auto) 0.08 0-0.2 K/uL RDW Standard Deviation 43.9 36.4-46.3 fL RDW Coefficient of Variation 12.9 11.5-14.5 % Immature Granulocyte % (Auto) 0.3 % Immature Granulocyte # (Auto) 0.05 0.00-0.02 K/uL Sodium Level 140 136-145 mmol/L Potassium Level 3.6 3.5-5.1 mmol/L Chloride Level 106 98-107 mmol/L Carbon Dioxide Level 27 21-32 mmol/L Anion Gap 7.0 3-11 mmol/L Blood Urea Nitrogen 17 7-18 mg/dl Creatinine 1.09 0.60-1.40 mg/dl Est Creatinine Clear Calc Drug Dose 67.0 ml/min Estimated GFR () 74.4 Estimated GFR (Non- 64.2 BUN/Creatinine Ratio 15.8 10-20 Random Glucose 138 70-99 mg/dl Calcium Level 9.1 8.5-10.1 mg/dl Total Bilirubin 0.7 0.2-1 mg/dl Direct Bilirubin 0.1 0-0.2 mg/dl Aspartate Amino Transf (AST/SGOT) 25 15-37 U/L Alanine Aminotransferase (ALT/SGPT) 24 12-78 U/L Alkaline Phosphatase 56 45-117 U/L Total Protein 7.2 6.4-8.2 gm/dl Albumin 3.5 3.4-5.0 gm/dl Lipase 92 73-393 U/L Microbiology Results 12/09/17 Blood Culture, Received Pending 12/09/17 Blood Culture, Received Pending Diagnostic Radiology Patient Name: ELIANE STOUT Unit Number: [id number] Dictated: 12/09/171858 Transcribed: 12/09/171858 EV Printed Date/Time: [~ rep prt dt]/[~ rep prt tm] [~ rep ct labl] - [~ rep ct ivnm] [facility] Radiology Department [place] [id number] Dictated: 12/09/171858 Transcribed: 12/09/171858 EV Printed Date/Time: [~ rep prt dt]/[~ rep prt tm] [~ rep ct labl] - [~ rep ct ivnm] [~ rep ct add3]] SINGLE VIEW CHEST CLINICAL HISTORY: Atypical chest pain. FINDINGS: 2 AP, portable, upright chest radiographs are compared to study dated 10/23/2017 and correlated with chest CT dated 11/27/2017. The examination is degraded by portable technique and patient rotation. The heart is enlarged and there is atherosclerotic calcification of the thoracic aorta. The pulmonary vasculature is noncongested. Chronic elevation of right hemidiaphragm is similar to previous and there is bibasilar atelectasis. Patchy airspace consolidation is seen in the right midlung. No large pleural effusion or pneumothorax is seen. The skeletal structures are osteopenic. The bony thorax is grossly intact. Calcified joint bodies are noted in the right shoulder. IMPRESSION: 1. Cardiomegaly without radiographic evidence of congestive failure. 2. Patchy airspace consolidation is seen in the right midlung. Correlate clinically for evidence of an infectious/inflammatory pneumonitis. Radiographic follow-up to resolution is recommended. Electronically signed by: Familia Santos M.D. 12/09/2017 7:01 PM Dictated Date/Time: 12/09/2017 6:59 PM The status of this report is Signed. Draft = Not yet reviewed or approved by Radiologist. Signed = Reviewed and approved by Radiologist. <AttendingPhy></AttendingPhy> <FamilyPhy>Fiona Stafford M.D.</FamilyPhy> < PrimaryPhy>Fiona Stafford M.D.</PrimaryPhy> <UnitNumber>[id number]</ UnitNumber> <VisitNumber>[id number]</VisitNumber> <PatientName>ELIANE STOUT </PatientName> <DateOfBirth>1940</DateOfBirth> <Location>[facility]</Location> <ServiceDate>12/09/17</ServiceDate> <MNE>ESINDI</MNE> <OrderingPhy>Jeremy Hill M.D.</OrderingPhy> <OrderingPhyMNE>f rep ord dr lunsford</OrderingPhyMNE> < DictatingPhyMNE>f rep dict dr lunsford</DictatingPhyMNE> <CCListMNE>f rep ct olivere</ CCListMNE> <AdmittingPhyMNE>f pt admit dr lunsford</AdmittingPhyMNE> <AttendingPhyMNE >f pt attend dr lunsford</AttendingPhyMNE> <ConsultingPhyMNE>f pt consult dr lunsford</ConsultingPhyMNE> <FamilyPhyMNE>f pt fam dr lunsford</FamilyPhyMNE> <OtherPhyMNE>f pt other dr lunsford</OtherPhyMNE> < PrimaryPhyMNE>f pt prim care dr lunsford</PrimaryPhyMNE> <ReferringPhyMNE>f pt referring dr lunsford</ReferringPhyMNE> EKG ELIANE STOUT ID:[id number] 09-DEC-2017 18:42:33 [facility] Sinus rhythm with frequent Premature ventricular complexes Left axis deviation Incomplete right bundle branch block T wave abnormality, consider lateral ischemia Prolonged QT Abnormal ECG When compared with ECG of 23-OCT-2017 22:45, Premature atrial complexes are no longer Present 25mm/s 10mm/mV 150Hz 8.0 SP2 12SL 241 RUPA: 0 Referred by: Unconfirmed Vent. rate 95 BPM NM interval 148 ms QRS duration 110 ms QT/QTc 384/482 ms P-R-T axes 50 -61 129 1940 (77 yr) Male 1lb Room: Loc:15 Phlebotomist:CAROLYN SINHA Impression Assessment and Plan Bronchopneumonia-- Vancomycin IV per pharmacokinetic monitoring Zosyn 3.375mg IV every 8 hours Azithromycin 500 mg p.o. every 24 hours Duonebs every 4 hours while awake and every 2 hours when necessary. Solu-Medrol 40 mg IV every 8 hours Guaifenesin extended release 600 mg by mouth twice a day Nasal cannula oxygen titrate to keep pulse ox greater than or equal to 92% Sputum Gram stain and culture. Hypertension/abnormal EKG-- The patient will be admitted to telemetry for serial cardiac enzymes, serial EKG's, cardiac rhythm monitoring and a 2-D echocardiogram with Dopplers. Continue amlodipine 10 mg p.o. daily, aspirin 81 mg p.o. daily. Hold HCTZ. GERD-- Change omeprazole to pantoprazole 40 mg daily. BPH-- Continue finasteride 5 mg daily Advanced Directives Existing Advance Directive: No Existing Living Will: No Existing Power of Registered Mail Clerk: No Resuscitation Status VTE Prophylaxis Will order VTE Prophylaxis: Yes Social Service Consult None Apply
[2017-12-09] MEDS ORDERED: VANCOMYCIN IV 2,500 MG in SODIUM CHLORIDE 0.9% 500ML 500 ML IV ONE (20:15)
[2017-12-09 20:30] VITALS: Ht 180.3 cm; Wt 102.4 kg
--- NOTE | 2017-12-09 20:50 | Pharmacy Progress Note ---
Pharmacy Abx Initial Consult Date of Service Dec 09, 2017. Pharmacy Dosing Scope Date of Consult: 12/09/17 Consultation requested by: Dr. Ralph Pharmacy is consulted to initiate vancomycin and Zosyn IV dosing therapy, order appropriate labs and adjust drug dose/frequency. Subjective The patient is a 77 year old male admitted on Dec 09, 2017 at 19:31. Objective Height (Feet): 5 Height (Inches): 11.00 Weight (Kilograms): 102.500 (BMI = 31.5) Vital Signs (Past 12Hrs) Vital Signs Past 12 Hours Date Time Temp Pulse Resp B/P (MAP) Pulse Ox O2 Delivery O2 Flow Rate FiO2 12/09/17 20:30 Room Air 12/09/17 20:27 93 Nasal Cannula 2.0 12/09/17 20:20 69 18 138/62 90 Room Air 12/09/17 18:24 37.6 12/09/17 17:39 36.7 79 18 141/70 91 Room Air Lab Results (24Hrs) Laboratory Tests (24 Hours) Test 12/09/17 18:20 White Blood Count 15.85 K/uL (4.8-10.8) H Red Blood Count 4.50 M/uL (4.7-6.1) L Hemoglobin 14.5 g/dL (14.0-18.0) Hematocrit 41.6 % (42-52) L Mean Corpuscular Volume 92.4 fL (80-100) Mean Corpuscular Hemoglobin 32.2 pg (25-34) Mean Corpuscular Hemoglobin Concent 34.9 g/dl (32-36) Platelet Count 328 K/uL (130-400) Mean Platelet Volume 10.6 fL (7.4-10.4) H Neutrophils (%) (Auto) 80.4 % Lymphocytes (%) (Auto) 9.9 % Monocytes (%) (Auto) 7.0 % Eosinophils (%) (Auto) 1.9 % Basophils (%) (Auto) 0.5 % Neutrophils # (Auto) 12.74 K/uL (1.4-6.5) H Lymphocytes # (Auto) 1.57 K/uL (1.2-3.4) Monocytes # (Auto) 1.11 K/uL (0.11-0.59) H Eosinophils # (Auto) 0.30 K/uL (0-0.5) Basophils # (Auto) 0.08 K/uL (0-0.2) Micro Results Date/Time Source Procedure Growth Status 12/09/17 18:36 Blood Blood Culture Pending Received 12/09/17 18:20 Blood Blood Culture Pending Received Risk Factors for Resistance * Hospitalization for 48 hours or more within the past 90 days * Antimicrobial use within the last 90 days Assessment & Plan Assessment 77 year old male admitted for pneumonia. Pertinent PMH includes multiple admissions for sepsis (E. coli and Klebsiella). Most recent admission in Aug 2017. Plan Vancomycin IV * Est PK parameters: Vd 0.6 L/kg, Luke 0.06 hr-1, t1/2 11.5 hrs * Loading dose: 2500 mg (25 mg/kg) * Maintenance dose: 1000 mg IV (10 mg/kg) every 12 hours * Goal trough level for pneumonia : 15 to 20 mcg/mL * Trough/Random level ordered for 12/11/17 prior to the 4th dose * A less than traditional dose and/or extended dosing interval has/have been selected due to likelihood of drug accumulation in obese patient/patient with h/ o CKD. Piperacillin/tazobactam * 4.5 g bolus administered over 30 minutes, then 3.375 g IV extended infusion every 8 hours for CrCl greater than 20 mL/min Pharmacy will continue to follow and will adjust dose/frequency as necessary. Thank you.
[2017-12-09] MEDS ORDERED: LEVALBUTEROL/IPRATROPIUM NEB INH SCH (21:00)
[2017-12-09 21:06] VITALS: BP 131/78; PULSE 64; TEMP 36.9; O2SAT 92
[2017-12-09] MEDS ORDERED: LEVALBUTEROL 1.25MG/0.5ML NEB INH PRN (21:30)
[2017-12-09] MEDS ORDERED: IPRATROPIUM BROMIDE NEB SOLN 0.02% 2.5 ML VIAL INH PRN (21:30)
[2017-12-09 21:35] LABS: PTT PATIENT 26.1 SECONDS (21.0-31.0)
[2017-12-09 21:48] VITALS: PULSE 90; O2SAT 97
[2017-12-09] MEDS: FLUTICASONE PROPIONATE NA SPR 16 GM BTL NAE SCH (21:51)
[2017-12-09] MEDS: GUAIFENESIN 600 MG TABCR PO SCH (21:51)
[2017-12-09] MEDS: METHYLPREDNISOLONE IV 40 MG in SYRINGE 0 ML IV SCH (21:52)
[2017-12-09] MEDS: CALCIUM POLYCARBOPHIL 1 TAB PO SCH (21:52)
[2017-12-09 23:25] VITALS: BP 112/68; PULSE 82; TEMP 36.7; O2SAT 92
[2017-12-09] MEDS: PIPERACILL/TAZOBAC IV 3.375 GM in SODIUM CHLORIDE 0.9% 100ML 100 ML IV SCH (23:41)
[2017-12-10] VITALS (9 sets, daily range): BP systolic 130–155; BP diastolic 76–85; PULSE 82–106; TEMP 36.3–37; O2SAT 90–94
[2017-12-10] MEDS: IPRATROPIUM BROMIDE NEB SOLN 0.02% 2.5 ML VIAL INH SCH ×4 (01:42→20:36)
[2017-12-10] MEDS: LEVALBUTEROL 1.25MG/0.5ML NEB INH SCH ×4 (01:42→20:36)
[2017-12-10] MEDS: PIPERACILL/TAZOBAC IV 3.375 GM in SODIUM CHLORIDE 0.9% 100ML 100 ML IV SCH ×2 (04:19→07:24)
[2017-12-10] MEDS: METHYLPREDNISOLONE IV 40 MG in SYRINGE 0 ML IV SCH (04:22)
[2017-12-10 04:45] LABS: BASO % 0.1 %; BASO ABS # 0.01 K/uL (0-0.2); HEMOGLOBIN 14.3 g/dL (14.0-18.0); IG# 0.05 K/uL (0.00-0.02); LYMPH % 5.1 %; LYMPH ABS # 0.62 K/uL (1.2-3.4); MEAN PLATELET VOLUME 10.4 fL (7.4-10.4); MONO % 0.6 %; MONO ABS # 0.07 K/uL (0.11-0.59); NEUT % 93.8 %; NEUT ABS # 11.37 K/uL (1.4-6.5); PLATELET COUNT 306 K/uL (130-400); RED CELL DISTRIBUTION WIDTH CV 13.1 % (11.5-14.5); RED CELL DISTRIBUTION WIDTH SD 44.9 fL (36.4-46.3); WHITE BLOOD COUNT 12.12 K/uL (4.8-10.8)
[2017-12-10 05:04] LABS: CALCIUM 8.9 mg/dl (8.5-10.1); CREATININE 1.17 mg/dl (0.60-1.40); POTASSIUM 4.1 mmol/L (3.5-5.1)
[2017-12-10 05:07] LABS: INR 1.1 (0.9-1.1)
[2017-12-10 05:14] LABS: CKMB 3.1 ng/ml (0.5-3.6)
[2017-12-10] MEDS: ASPIRIN 81 MG ECTAB PO SCH (07:24)
[2017-12-10] MEDS: GUAIFENESIN 600 MG TABCR PO SCH ×2 (07:24→20:44)
[2017-12-10] MEDS: FINASTERIDE 5 MG TAB PO SCH (07:24)
[2017-12-10] MEDS: PANTOprazole SOD 40 MG TAB PO SCH (07:25)
[2017-12-10] MEDS: AMLODIPINE BESYLATE 5 MG TAB PO SCH (07:25)
[2017-12-10] MEDS: AZITHROMYCIN 250 MG TAB PO SCH (07:47)
[2017-12-10] MEDS ORDERED: VANCOMYCIN IV 1,000 MG in SODIUM CHLORIDE 0.9% 250ML 250 ML IV SCH (08:00)
[2017-12-10] MEDS ORDERED: HEPARIN SOD 5000 UNIT/0.5 ML CARP SQ SCH (09:00)
[2017-12-10] MEDS: MAGNESIUM SULFATE 1GM / D5W 100 ML IV SCH ×2 (09:03→09:56)
--- NOTE | 2017-12-10 13:32 | Pulmonary Consultation ---
History General Date of Service: Dec 10, 2017. Stated Complaint: Bronchopneumonia HPI Dear Dr. Rodriguez: Thank you for your kind referral Mr. Fernandes to pulmonary service. This is 77- year-old gentleman with a history of COPD, has been treated with albuterol and Advair recently changed to Symbicort. The patient 2 weeks ago was evaluated by Dr. Ferrell due to recurrent cough and fever. The patient does have a chronic infiltrate in the left lower lobe and he was planned to have a bronchoscopy done by Dr. Ferrell as an outpatient. The patient presented to the emergency room with recurrent fever as he was cutting his grass. He measured his temperature which was 99.9. He has been having persistent rhinorrhea and postnasal drip. Accompanied with yellow secretions nasally and by cough. His cough has been persistent but he did not have any wheezing. No shortness of breath and he goes to the gym on a daily basis with his exercise and does 50 follow-up every single day without difficulty breathing. His exercise capacity has been excellent. The patient denies any chest pain with any of these events. He did have frequent fevers in the past where he was treated by his primary care physician as an outpatient. The patient does not have any cardiac history, no abdominal pain no nausea or vomiting no dysphagia and denies any increased swelling in his lower extremities. No frequent headache visual disturbances no rash no swelling in his joints and the rest of his review of system was unremarkable. The patient had a CAT scan of the chest done 2 weeks ago which showed tree-in- bud appearance as well as left lower lobe small nodule which has been stable for the past 2 years as well as right lower lobe nodule representing atelectasis. The patient was admitted to the hospital and started on broad- spectrum antibiotics. Started also on IV steroids. Historian: patient, other (Records) Review of Systems Constitutional: reports: fever, malaise Eyes: reports: no symptoms ENT: reports: nasal congestion, rhinorrhea Cardiovascular: reports: no symptoms Respiratory: reports: cough, shortness of breath Gastrointestinal: reports: no symptoms Genitourinary - Male: reports: no symptoms Musculoskeletal: reports: no symptoms Neurologic: reports: no symptoms Psychiatric: reports: no symptoms Endocrine: no symptoms Allergic / Immunologic: no symptoms Past Medical History Past Medical History: History of COPD, recurrent pneumonia, cholecystitis in the past status post cholecystectomy, no cardiac history. Family History Hypertension Social History Hx Tobacco Use In Past Year?: No (quit at age 19) Smoking Status: Former Smoker Marital status: Housing status: lives with significant other Occupational Status: employed, retired Immunizations History of Influenza Vaccine: Unknown History of Tetanus Vaccine?: Unknown History of Pneumococcal: Unknown History of Hepatitis B Vaccine: Unknown History of MDRO History of MDRO: No Allergies Coded Allergies: Levofloxacin (Verified Allergy, Unknown, facial swelling, 05/10/16) Morphine (Verified Adverse Reaction, Unknown, MIGRAINE, 05/10/16) Current Medications Reported Home Medications Medications Dose Route/Sig Max Daily Dose Days Date Category Symbicort 160/4.5 Inhaler (Budesonide/Formoterol Fumarate) 120 Puffs/ Aero 2 Puffs INH BID 12/09/17 Reported Proair Respiclick (Albuterol Sulfate) 108 Mcg/Act Aer 2 Puffs INH QID PRN 10/23/17 Reported Amlodipine Besylate 10 Mg Tab 10 Mg PO DAILY 10/23/17 Reported Fluticasone Propionate 120 Sprays/6000 Mcg Inha 2 Sprays SURINDER HS 10/23/17 Reported Finasteride 5 Mg Tab 5 Mg PO DAILY 10/23/17 Reported Advil (Ibuprofen) 200 Mg Tab 400 Mg PO BID 05/10/16 Reported Duoneb (Ipratropium-Albuterol) 3 Ml Nebu 1 Treatment NEB Q4H PRN 01/17/16 Reported Aspirin Ec (Aspirin) 81 Mg Tab 81 Mg PO DAILY 01/17/16 Reported Fiber Laxative (Fiber) Ea 800 Mg PO QPM 11/12/14 Reported Hydrochlorothiazide 25 Mg Tab 12.5 Mg PO DAILY 11/12/14 Reported Prilosec (Omeprazole) 20 Mg Cap 20 Mg PO DAILY 11/12/14 Reported Physical Physical Exam Vital Signs: Date Time Temp Pulse Resp B/P (MAP) Pulse Ox O2 Delivery O2 Flow Rate FiO2 12/10/17 11:59 36.8 99 17 132/78 (96) 90 Room Air 12/10/17 08:00 Nasal Cannula 2.0 12/10/17 07:43 36.9 99 18 155/85 (108) 92 Room Air 12/10/17 07:23 89 22 91 Nasal Cannula 2.0 12/10/17 04:42 36.3 83 18 130/76 (94) 94 Nasal Cannula 2.0 12/10/17 04:00 Nasal Cannula 2.0 12/10/17 01:42 86 22 92 Room Air 12/10/17 00:00 Nasal Cannula 2.0 12/09/17 23:25 36.7 82 19 112/68 (83) 92 Nasal Cannula 2.0 12/09/17 21:48 90 22 97 Nasal Cannula 2.0 12/09/17 21:06 36.9 64 18 131/78 (95) 92 Nasal Cannula 2.0 12/09/17 20:30 Room Air 12/09/17 20:27 93 Nasal Cannula 2.0 12/09/17 20:20 69 18 138/62 90 Room Air 12/09/17 18:24 37.6 12/09/17 17:39 36.7 79 18 141/70 91 Room Air General Appearance: WELL-APPEARING, NO APPARENT DISTRESS Eyes: PERRLA, EOMI ENT: NORMAL THROAT EXAM Neck: TRACHEA MIDLINE Respiratory: BREATH SOUNDS NORMAL Cardiovasular: REGULAR RATE/RHYTHM, NORMAL S1S2, NO M/G/R, NO MURMUR Abdomen: NON TENDER, NO MASSES, NO GUARDING Back: NORMAL INSPECTION Upper Extremities: NO EDEMA Lower Extremities: NO EDEMA Neuro: ALERT, ORIENTED x 3, NORMAL MOTOR EXAM Psychiatric: NORMAL AFFECT Diagnostics Labs Results Past 24 Hours Test 12/09/17 18:17 12/09/17 18:20 12/09/17 22:00 12/10/17 04:38 Range/Units Bedside Lactic Acid Venous 1.19 0.90-1.70 mmol/L White Blood Count 15.85 12.12 4.8-10.8 K/uL Red Blood Count 4.50 4.47 4.7-6.1 M/uL Hemoglobin 14.5 14.3 14.0-18.0 g/dL Hematocrit 41.6 42.0 42-52 % Mean Corpuscular Volume 92.4 94.0 80-100 fL Mean Corpuscular Hemoglobin 32.2 32.0 25-34 pg Mean Corpuscular Hemoglobin Concent 34.9 34.0 32-36 g/dl Platelet Count 328 306 130-400 K/uL Mean Platelet Volume 10.6 10.4 7.4-10.4 fL Neutrophils (%) (Auto) 80.4 93.8 % Lymphocytes (%) (Auto) 9.9 5.1 % Monocytes (%) (Auto) 7.0 0.6 % Eosinophils (%) (Auto) 1.9 0.0 % Basophils (%) (Auto) 0.5 0.1 % Neutrophils # (Auto) 12.74 11.37 1.4-6.5 K/uL Lymphocytes # (Auto) 1.57 0.62 1.2-3.4 K/uL Monocytes # (Auto) 1.11 0.07 0.11-0.59 K/uL Eosinophils # (Auto) 0.30 0.00 0-0.5 K/uL Basophils # (Auto) 0.08 0.01 0-0.2 K/uL RDW Standard Deviation 43.9 44.9 36.4-46.3 fL RDW Coefficient of Variation 12.9 13.1 11.5-14.5 % Immature Granulocyte % (Auto) 0.3 0.4 % Immature Granulocyte # (Auto) 0.05 0.05 0.00-0.02 K/uL Activated Partial Thromboplast Time 26.1 21.0-31.0 SECONDS Partial Thromboplastin Ratio 1.0 Sodium Level 140 139 136-145 mmol/L Potassium Level 3.6 4.1 3.5-5.1 mmol/L Chloride Level 106 107 98-107 mmol/L Carbon Dioxide Level 27 26 21-32 mmol/L Anion Gap 7.0 6.0 3-11 mmol/L Blood Urea Nitrogen 17 16 7-18 mg/dl Creatinine 1.09 1.17 0.60-1.40 mg/dl Est Creatinine Clear Calc Drug Dose 67.0 62.4 ml/min Estimated GFR () 74.4 68.3 Estimated GFR (Non- 64.2 58.9 BUN/Creatinine Ratio 15.8 13.4 10-20 Random Glucose 138 228 70-99 mg/dl Calcium Level 9.1 8.9 8.5-10.1 mg/dl Total Bilirubin 0.7 0.2-1 mg/dl Direct Bilirubin 0.1 0-0.2 mg/dl Aspartate Amino Transf (AST/SGOT) 25 15-37 U/L Alanine Aminotransferase (ALT/SGPT) 24 12-78 U/L Alkaline Phosphatase 56 45-117 U/L Total Protein 7.2 6.4-8.2 gm/dl Albumin 3.5 3.4-5.0 gm/dl Lipase 92 73-393 U/L Urine Color YELLOW Urine Appearance CLEAR CLEAR Urine pH 8.0 4.5-7.5 Urine Specific [place] 1.009 1.000-1.030 Urine Protein NEG NEG Urine Glucose (UA) NEG NEG Urine Ketones NEG NEG Urine Occult Blood NEG NEG Urine Nitrite NEG NEG Urine Bilirubin NEG NEG Urine Urobilinogen NEG NEG Urine Leukocyte Esterase NEG NEG Prothrombin Time 11.1 9.0-12.0 SECONDS Prothromb Time International Ratio 1.1 0.9-1.1 Magnesium Level 1.4 1.8-2.4 mg/dl Total Creatine Kinase 256 39-308 U/L Creatine Kinase MB 3.1 0.5-3.6 ng/ml Creatine Kinase MB Ratio 1.2 0-3.0 Troponin I < 0.015 0-0.045 ng/ml Test 12/10/17 12:24 Range/Units Creatine Kinase MB Ratio 0-3.0 Microbiology Results 12/09/17 Blood Culture, Received Pending 12/09/17 Blood Culture, Received Pending 12/10/17 MRSA DNA Surveillance Screen - Final, Complete Specimen Negative for MRSA by DNA Probe 12/10/17 Gram Stain, Received Pending 12/10/17 Sputum Culture, Received Pending 12/09/17 Urine Culture - Preliminary, Resulted NO GROWTH - LESS THAN 1,000 COLONIES/... Diagnostic Radiology Chest x-ray showed right middle lobe infiltrate and left lower lobe chronic infiltrate. Possible old rib fracture on the right. CAT scan of the chest done 2 weeks ago did not reveal any rib fracture however it did show right lower lobe small area of atelectasis, tree-in-bud appearance of the left lower lobe, no lymphadenopathy, COPD changes with panbronchiolitis. Impression Assessment and Plan 1. COPD with exacerbation, gold level 2, improving. 2. Chronic sinusitis could be infectious which is a cause in my opinion of his panbronchiolitis noted on the CAT scan. The appearance of tree-in-bud support this diagnosis. Cannot rule out MAC infection. 3. Right lower lobe pulmonary nodule which represent atelectasis. Left lower lobe pulmonary nodule has been stable for 2 years does not need any follow-up. 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 4. History of nicotine use, 72-[id number] history, quit 30 years ago. 5. 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 6. Right middle lobe infiltrate representing community-acquired pneumonia. Plan: 1. Discontinue vancomycin and Zosyn. 2. Continue azithromycin and add ceftriaxone. No risk for HCAP. 3. Change steroids to prednisone 60 mg p.o. daily. 4. The patient was planned for bronchoscopy by Dr. Ferrell, he would like to have it done while he is here in the hospital. I will pass it on to the pulmonary team in the morning. I did not place the patient n.p.o. in the morning as I do not know Dr. Ferrell's schedule. 5. Repeat CAT scan of the chest in 6 months for the right lower lobe nodule, I do believe it represent atelectasis more than spiculated nodule. It appeared benign in nature. 6. The patient symptoms has been exacerbated after working in his yard and cutting his grass. Which could represent allergic rhinitis. 7. After bronchoscopy, the patient can be continued on oral antibiotics such as Levaquin for a total of additional 5 days. 8. Continue Symbicort and albuterol. Thank you for your kind referral, will follow.
[2017-12-10 14:11] LABS: CKMB 3.2 ng/ml (0.5-3.6)
[2017-12-10] MEDS: CEFTRIAXONE SOD INJ 1 GM in DEXTROSE 5% ADD-VANTAGE 50ML 50 ML IV SCH (14:24)
--- NOTE | 2017-12-10 16:30 | ECHOCARDIOGRAM REPORT ---
*NOTICE TO RECEIVING [employer] This information is strictly Confidential and protected under [place] law. [place] law prohibits you from making any further disclosure of this information unless further disclosure is expressly permitted by the written consent of the person to whom it pertains or is authorized by law. A general authorization for the release of medical or other information is not sufficient for this purpose. Hospital accepts no responsibility if the information is made available to any other person, INCLUDING THE PATIENT. Interpretation Summary * Name: ELIANE STOUT Study Date: 12/10/2017 07:04 AM BP: 130/76 mmHg * Patient Location: [facility]\S\N286\S\2 HR: 83 * : 1940 (M/d/yyyy) Gender: Male Height: 71 in * Age: 77 yrs Ethnicity: [place] Weight: 225 lb * Ordering Physician: Anjel Ralph * Referring Physician: Self, Referred * Performed By: Michelle Mariee RDCS * * Reason For Study: Abnormal EKG * BSA: 2.2 m2 * -- Conclusions -- * 1. Mildly dilated left ventricle with mildly reduced systolic function. Estimated EF 45%. Mild global hypokinesis. Severe asymmetric hypertrophy of the anteroseptal base. Otherwise mild left ventricular hypertrophy. Type 1 diastolic dysfunction. * 2. The left atrium is mildly dilated. * 3. There is mild to moderate mitral regurgitation. * 4. Normal estimated right ventricular systolic pressure, assuming normal right atrial pressure (IVC not well visualized). * 5. No prior study available for comparison. Procedure Details * A complete two-dimensional transthoracic echocardiogram was performed (2D, M-mode, Doppler and color flow Doppler). Left Ventricle * Mildly dilated left ventricle with mildly reduced systolic function. Estimated EF 45%. Mild global hypokinesis. Severe asymmetric hypertrophy of the anteroseptal base. Otherwise mild left ventricular hypertrophy. Type 1 diastolic dysfunction. Right Ventricle * The right ventricle is normal in size and function. * The right ventricular systolic function is normal as assessed by tricuspid annular plane systolic excursion (TAPSE) (normal >1.5 cm). Atria * The left atrium is mildly dilated. * Right atrial size is normal. * There is no evidence of atrial septal defect, but resolution does not allow assessment for a patent foramen ovale. Mitral Valve * The mitral valve is grossly normal. * There is no mitral valve stenosis. * There is mild to moderate mitral regurgitation. Tricuspid Valve * The tricuspid valve is not well visualized, but is grossly normal. * There is no tricuspid stenosis. * There is trace tricuspid regurgitation. Aortic Valve * The aortic valve is not well visualized. * No hemodynamically significant valvular aortic stenosis. * There is no significant aortic regurgitation. Pulmonic Valve * The pulmonary valve is inadequately visualized, but the Doppler data is adequate for interpretation. * There is no pulmonic valvular stenosis. * There is no significant pulmonary regurgitation. Great Vessels * The aortic root is normal size. Pericardium/Pleural * There is no pericardial effusion. Great Vessels * IVC not well visualized. MMode 2D Measurements and Calculations IVSd 1.6 cm LVIDd 5.5 cm LVIDs 4.2 cm LVPWd 1.2 cm IVS/LVPW 1.3 FS 24.4 % EDV(Teich) 149.8 ml ESV(Teich) 77.9 ml EF(Teich) 48.0 % EDV(cubed) 169.9 ml ESV(cubed) 73.3 ml EF(cubed) 56.9 % LV mass(C)d 338.9 grams LV mass(C)dI 152.8 grams/m\S\2 SV(Teich) 71.9 ml SI(Teich) 32.4 ml/m\S\2 SV(cubed) 96.6 ml SI(cubed) 43.6 ml/m\S\2 Ao root diam 3.5 cm Ao root area 9.8 cm\S\2 ACS 2.4 cm LA dimension 3.7 cm LA/Ao 1.0 LVOT diam 2.0 cm LVOT area 3.3 cm\S\2 LVAd ap4 45.8 cm\S\2 LVLd ap4 9.7 cm EDV(MOD-sp4) 177.3 ml EDV(sp4-el) 184.4 ml LVAs ap4 32.3 cm\S\2 LVLs ap4 8.7 cm ESV(MOD-sp4) 100.9 ml ESV(sp4-el) 102.5 ml EF(MOD-sp4) 43.1 % EF(sp4-el) 44.4 % LVAd ap2 49.3 cm\S\2 LVLd ap2 10.0 cm EDV(MOD-sp2) 200.7 ml EDV(sp2-el) 206.3 ml LVAs ap2 33.7 cm\S\2 LVLs ap2 8.8 cm ESV(MOD-sp2) 108.4 ml ESV(sp2-el) 109.8 ml EF(MOD-sp2) 46.0 % EF(sp2-el) 46.8 % LVLd %diff 3.8 % EDV(MOD-bp) 201.7 ml LVLs %diff -1.07 % ESV(MOD-bp) 86.9 ml EF(MOD-bp) 56.9 % SV(MOD-sp4) 76.4 ml SI(MOD-sp4) 34.5 ml/m\S\2 SV(MOD-sp2) 92.3 ml SI(MOD-sp2) 41.6 ml/m\S\2 SV(MOD-bp) 114.7 ml SI(MOD-bp) 51.8 ml/m\S\2 SV(sp4-el) 82.0 ml SI(sp4-el) 37.0 ml/m\S\2 SV(sp2-el) 96.5 ml SI(sp2-el) 43.5 ml/m\S\2 Doppler Measurements and Calculations MV E max jerilyn 113.0 cm/sec MV A max jerilyn 138.2 cm/sec MV E/A 0.82 Ao V2 max 137.2 cm/sec Ao max PG 7.5 mmHg Ao max PG (full) 3.7 mmHg LAMBERT(V,A) 2.3 cm\S\2 LAMBERT(V,D) 2.3 cm\S\2 LV V1 max PG 3.8 mmHg LV V1 max 97.2 cm/sec MR max jerilyn 492.2 cm/sec MR max PG 96.9 mmHg MR mean jerilyn 368.9 cm/sec MR mean PG 62.5 mmHg MR VTI 170.8 cm PA V2 max 105.3 cm/sec PA max PG 4.4 mmHg PA acc slope 298.0 cm/sec\S\2 PA acc time 0.16 sec TR max jerilyn 273.1 cm/sec PA pr(Accel) 8.2 mmHg
--- NOTE | 2017-12-10 16:41 | Progress Note ---
Subjective Date of Service: Dec 10, 2017. Subjective Pt evaluation today including: conversation w/ patient, conversation w/ family ( at bedside), physical exam, chart review, lab review, review of studies ( cxr, EKGs (multiple), recent outpatient chest CT ), review of inpatient medication list Pain: denies PO Intake: fairly normal Voiding: no voiding problems tele stable overnight - no dysrhythmia he feels better today reports itchy eyes and nose, water eyes/nose - over the last few days symptoms were worse yesterday while cutting his lawn at home even prior to cutting his lawn yesterday, however, he felt poorly and had low- grade temp of 99.9 he reports compliance with all COPD/allergy meds Problem List Medical Problems: (1) COPD with acute bronchitis Status: Acute (2) Febrile illness, acute Status: Acute (3) Hypokalemia Status: Acute (4) Hypoxia Status: Acute (5) PNA (pneumonia) Status: Acute (6) Pneumonia Status: Acute (7) SIRS (systemic inflammatory response syndrome) Status: Acute (8) SIRS (systemic inflammatory response syndrome) Status: Acute Review of Systems Constitutional: No fever Respiratory: + cough, + wheezing, + dyspnea on exertion Cardiac: No chest pain, No orthopnea, No PND, No edema Abdomen: No pain Objective Vital Signs Date Time Temp Pulse Resp B/P (MAP) Pulse Ox O2 Delivery O2 Flow Rate FiO2 12/10/17 15:43 37.0 106 17 141/76 (97) 91 Room Air 12/10/17 12:00 Nasal Cannula 2.0 12/10/17 11:59 36.8 99 17 132/78 (96) 90 Room Air 12/10/17 08:00 Nasal Cannula 2.0 12/10/17 07:43 36.9 99 18 155/85 (108) 92 Room Air 12/10/17 07:23 89 22 91 Nasal Cannula 2.0 12/10/17 04:42 36.3 83 18 130/76 (94) 94 Nasal Cannula 2.0 12/10/17 04:00 Nasal Cannula 2.0 12/10/17 01:42 86 22 92 Room Air 12/10/17 00:00 Nasal Cannula 2.0 12/09/17 23:25 36.7 82 19 112/68 (83) 92 Nasal Cannula 2.0 12/09/17 21:48 90 22 97 Nasal Cannula 2.0 12/09/17 21:06 36.9 64 18 131/78 (95) 92 Nasal Cannula 2.0 12/09/17 20:30 Room Air 12/09/17 20:27 93 Nasal Cannula 2.0 12/09/17 20:20 69 18 138/62 90 Room Air 12/09/17 18:24 37.6 12/09/17 17:39 36.7 79 18 141/70 91 Room Air Physical Exam General Appearance: no apparent distress Eyes: + pertinent finding (allergic shiners ) ENT: + pertinent finding (cobblestoning posterior throat; inferior turbinates swollen ) Neck: no JVD Respiratory/Chest: no respiratory distress, no accessory muscle use, + wheezing Cardiovascular: regular rate, rhythm, no gallop, no murmur, + extra beats Abdomen: normal bowel sounds, non tender, soft, no organomegaly Extremities: no pedal edema Neurologic/Psychiatric: alert, oriented x 3 Laboratory Results Last 24 Hours Test 12/09/17 18:17 12/09/17 18:20 12/09/17 22:00 12/10/17 04:38 Bedside Lactic Acid Venous 1.19 mmol/L White Blood Count 15.85 K/uL 12.12 K/uL Red Blood Count 4.50 M/uL 4.47 M/uL Hemoglobin 14.5 g/dL 14.3 g/dL Hematocrit 41.6 % 42.0 % Mean Corpuscular Volume 92.4 fL 94.0 fL Mean Corpuscular Hemoglobin 32.2 pg 32.0 pg Mean Corpuscular Hemoglobin Concent 34.9 g/dl 34.0 g/dl Platelet Count 328 K/uL 306 K/uL Mean Platelet Volume 10.6 fL 10.4 fL Neutrophils (%) (Auto) 80.4 % 93.8 % Lymphocytes (%) (Auto) 9.9 % 5.1 % Monocytes (%) (Auto) 7.0 % 0.6 % Eosinophils (%) (Auto) 1.9 % 0.0 % Basophils (%) (Auto) 0.5 % 0.1 % Neutrophils # (Auto) 12.74 K/uL 11.37 K/uL Lymphocytes # (Auto) 1.57 K/uL 0.62 K/uL Monocytes # (Auto) 1.11 K/uL 0.07 K/uL Eosinophils # (Auto) 0.30 K/uL 0.00 K/uL Basophils # (Auto) 0.08 K/uL 0.01 K/uL RDW Standard Deviation 43.9 fL 44.9 fL RDW Coefficient of Variation 12.9 % 13.1 % Immature Granulocyte % (Auto) 0.3 % 0.4 % Immature Granulocyte # (Auto) 0.05 K/uL 0.05 K/uL Activated Partial Thromboplast Time 26.1 SECONDS Partial Thromboplastin Ratio 1.0 Sodium Level 140 mmol/L 139 mmol/L Potassium Level 3.6 mmol/L 4.1 mmol/L Chloride Level 106 mmol/L 107 mmol/L Carbon Dioxide Level 27 mmol/L 26 mmol/L Anion Gap 7.0 mmol/L 6.0 mmol/L Blood Urea Nitrogen 17 mg/dl 16 mg/dl Creatinine 1.09 mg/dl 1.17 mg/dl Est Creatinine Clear Calc Drug Dose 67.0 ml/min 62.4 ml/min Estimated GFR () 74.4 68.3 Estimated GFR (Non- 64.2 58.9 BUN/Creatinine Ratio 15.8 13.4 Random Glucose 138 mg/dl 228 mg/dl Calcium Level 9.1 mg/dl 8.9 mg/dl Total Bilirubin 0.7 mg/dl Direct Bilirubin 0.1 mg/dl Aspartate Amino Transf (AST/SGOT) 25 U/L Alanine Aminotransferase (ALT/SGPT) 24 U/L Alkaline Phosphatase 56 U/L Total Protein 7.2 gm/dl Albumin 3.5 gm/dl Lipase 92 U/L Urine Color YELLOW Urine Appearance CLEAR Urine pH 8.0 Urine Specific [place] 1.009 Urine Protein NEG Urine Glucose (UA) NEG Urine Ketones NEG Urine Occult Blood NEG Urine Nitrite NEG Urine Bilirubin NEG Urine Urobilinogen NEG Urine Leukocyte Esterase NEG Prothrombin Time 11.1 SECONDS Prothromb Time International Ratio 1.1 Magnesium Level 1.4 mg/dl Total Creatine Kinase 256 U/L Creatine Kinase MB 3.1 ng/ml Creatine Kinase MB Ratio 1.2 Troponin I < 0.015 ng/ml Test 12/10/17 13:21 Total Creatine Kinase 206 U/L Creatine Kinase MB 3.2 ng/ml Creatine Kinase MB Ratio 1.6 Troponin I < 0.015 ng/ml Assessment and Plan 77yo male - 1. right-sided pneumonia - likely community-acquired. MRSA swab negative. Was in the hospital just shy of 3 months ago but has been otherwise doing very well since then. Agree with pulmonary to narrow his abx coverage to rocephin/zithromax. Follow sputum/blood cx's. 2. COPD w/ exacerbation - improved; agree w/ weaning steroids. Cont nebs & inhalers. 3. allergic rhinitis - cont nasal steroid. Add betsy 60mg BID. Prednisone will certainly help. 4. b/l lower lobe pulmonary nodules - followed by Dr. Ferrell. Outpatient bronchoscopy was recently proposed for these nodules. 5. hypomagnesemia - replace with 2 grams mag sulfate; repeat mag level AM. 6. abnormal EKG - there are lateral T wave inversions but these are chronic and he has NO ischemic symptoms by history (he has been physically active at home without much in the way of limiting symptoms). Cardiac enzymes are negative. Echo pending, but in the absence of symptoms I am uncertain if I would recommend additional testing at this time. 7. HTN - continue home meds; holding HCTZ for now. Low magnesium is likely due to HCTZ use. 8. DVT proph - heparin 5000 TID. 9. GERD - PPI 10. BPH - finasteride Continued [facility] stay due to: multiple IV medications needed Discharge planning: home
[2017-12-10] MEDS ORDERED: FEXOFENADINE HCL 60 MG TAB PO ONE (16:45)
[2017-12-10] MEDS: HEPARIN SOD 5000 UNIT/0.5 ML CARP SQ SCH (17:00)
[2017-12-10 20:38] LABS: CKMB 3.5 ng/ml (0.5-3.6)
[2017-12-10] MEDS: FLUTICASONE PROPIONATE NA SPR 16 GM BTL NAE SCH (20:42)
[2017-12-10] MEDS: CALCIUM POLYCARBOPHIL 1 TAB PO SCH (20:44)
[2017-12-11] VITALS (10 sets, daily range): BP systolic 120–138; BP diastolic 69–75; PULSE 79–96; TEMP 36.4–36.7; O2SAT 91–96
[2017-12-11] MEDS: HEPARIN SOD 5000 UNIT/0.5 ML CARP SQ SCH ×2 (01:00→09:00)
[2017-12-11] MEDS: IPRATROPIUM BROMIDE NEB SOLN 0.02% 2.5 ML VIAL INH SCH ×3 (01:41→13:40)
[2017-12-11] MEDS: LEVALBUTEROL 1.25MG/0.5ML NEB INH SCH ×3 (01:41→13:40)
[2017-12-11 06:59] LABS: CALCIUM 9.6 mg/dl (8.5-10.1); CREATININE 1.14 mg/dl (0.60-1.40); POTASSIUM 3.7 mmol/L (3.5-5.1)
[2017-12-11] MEDS ORDERED: VANCOMYCIN TROUGH ONE (07:30)
[2017-12-11] MEDS: AMLODIPINE BESYLATE 5 MG TAB PO SCH (09:00)
[2017-12-11] MEDS: AZITHROMYCIN 250 MG TAB PO SCH (09:00)
[2017-12-11] MEDS: GUAIFENESIN 600 MG TABCR PO SCH (09:00)
[2017-12-11] MEDS: FINASTERIDE 5 MG TAB PO SCH (09:00)
[2017-12-11] MEDS: PANTOprazole SOD 40 MG TAB PO SCH (09:00)
[2017-12-11] MEDS ORDERED: FEXOFENADINE HCL 60 MG TAB PO SCH (09:00)
[2017-12-11] MEDS: ASPIRIN 81 MG ECTAB PO SCH (09:00)
--- NOTE | 2017-12-11 09:59 | History & Physical Bridge Note ---
H&P Re-Evaluation Bridge Note: I have examined the patient, reviewed the History & Physical and in the interval since the performance of the History & Physical I have noted the following changes of clinical significance: No changes noted
--- NOTE | 2017-12-11 10:00 | Pre Sedation Assessment ---
Pre Sedation Assessment General Date of Sedation: Dec 11, 2017. Vital Signs Past 12 Hours Date Time Temp Pulse Resp B/P (MAP) Pulse Ox O2 Delivery O2 Flow Rate FiO2 12/11/17 08:20 Room Air 12/11/17 07:10 81 20 96 Room Air 12/11/17 06:54 36.4 89 20 120/69 (86) 94 Room Air 12/11/17 04:30 36.7 88 20 121/72 (88) 93 Room Air 12/11/17 04:00 Room Air 12/11/17 01:42 85 20 91 Room Air 12/11/17 00:00 Room Air 12/10/17 22:33 36.4 96 20 149/77 (101) 94 Room Air Pre-Sedation Airway Assessment Smoking Status: Former Smoker Short Thick Neck: No Mallampati Classification: Class II ASA Classification: Class II NPO Status Date of Last Intake of Fluids: Dec 10, 2017 Time of Last Intake of Fluids: 2359 Date of Last Intake of Solids: Dec 11, 2017 Time of Last Intake of Solids: 220 Procedure Planning Contraindications for Sedation: None Current Medications Reviewed: Yes Notes The planned sedation has been discussed with the patient. Informed Consent was obtained. I have identified the patient, determined the appropriateness of sedation and have assessed the patient immediately prior to the procedure. All medicine(s) and interventions are by my order.
--- NOTE | 2017-12-11 10:32 | Pulmonology Progress Note ---
Pulmonary Progress Note Date of Service Dec 11, 2017. Attending Dr. Ferrell Subjective Patient reports feeling improved overall. Has been ambulating the hallways without limitation. He denies any further fevers. Denies chills or chest pain. Appetite is diminished. He did decline his morning heparin in preparation for bronchoscopy which had been scheduled for Monday to this morning. Objective 77-yo male admitted through the [facility] ER 12/09/17 with symptoms of low-grade fever and increased sinus drainage. Prior records were reviewed. PMHx includes: COPD/bronchiectasis, sepsis, (BC : e.coli, BC 05/06: klebsiella), allergic rhinitis, HTN, GERD, pulmonary nodule (5mm LLL, pleural based - stable), HTN. He is a former smoker. Patient initially established in the outpatient office end of October 2017 with in the setting of recent admission with hypoxic respiratory failure and sepsis. W/U included IgG/A/M with IgM: 35.1 (consistent with prior marginal low values) , IgE: WNL, and CT Chest 11/27/2017 which described stable LLL pulmonary nodules, tree-in-bud opacities with bronchial wall thickening in the bases as well as a 2.2 cm foci of consolidation of the right lung base. He was scheduled for bronchoscopy however was admitted for above symptoms of sinus drainage and fevers. He is treated with Ceftriaxone and azithromycin as well as prednisone, Mucinex and bronchodilators with clinical improvement. Today: - 93-95% - RA - HD stable - No New labs - Refused 1700 and AM dosing of heparin Physical Exam: Constitutional: WDWN male lying in hospital bed. Alert, no acute distress Head: + facial symmetry, Moist mucous membranes. Diminished hearing Respiratory: non-labored respirations. No cough on exam. Bilateral bronchial breath sounds with extended expiratory phase. CV: RRR, no MRG. Warm and perfused bilaterally. No clubbing or cyanosis. Abdomen: Soft, obese. Active bowel sounds MSK/Extremities: Moving and developed symmetrically. No peripheral edema. Assessment & Plan 77-yo male with h/o COPD, GERD, Sepsis and rhinitis admitted with low-grade fevers with upper and lower respiratory involvement. He is improved significantly - currently NPO with anticoagulation held in anticipation of bronchoscopy re-scheduled to this morning. Discussed with Dr. Weldon - who will see him today and move forward with bronchoscopy this morning. Expect him to tolerate this well and anticipate discharge once stable post procedure with anticipation of sinus imaging, updated PFTs, and swallow evaluation as outpatient. Data Medications: Current Inpatient Medications Medications (Trade) Dose Ordered Sig/Kathrine Route Start Time Stop Time Status Last Admin Dose Admin Acetaminophen (Tylenol Tab) 650 mg Q4H PRN PO 12/09/17 19:45 01/08/18 19:44 Al Hydrox/Mg Hydrox/Simethicone (Maalox Max Susp) 15 ml Q4H PRN PO 12/09/17 19:45 01/08/18 19:44 Magnesium Hydroxide (Milk Of Magnesia Susp) 30 ml Q12H PRN PO 12/09/17 19:45 01/08/18 19:44 Polyethylene (Miralax Powder Packet) 17 gm DAILY PRN PO 12/09/17 19:45 01/08/18 19:44 Ondansetron HCl (Zofran Odt) 8 mg Q6H PRN PO 12/09/17 19:45 01/08/18 19:44 Guaifenesin (Mucinex Contr Rel Tab) 600 mg BID PO 12/09/17 21:15 01/08/18 21:14 12/10/17 20:44 600 MG Aspirin (Ecotrin Tab) 81 mg DAILY PO 12/10/17 09:00 01/09/18 08:59 12/10/17 07:24 81 MG Finasteride (Proscar Tab) 5 mg DAILY PO 12/10/17 09:00 01/09/18 08:59 12/10/17 07:24 5 MG Fluticasone Propionate (Flonase Nasal [place]) 2 sprays HS SURINDER 12/09/17 21:00 01/08/18 20:59 12/10/17 20:42 2 SPRAYS Calcium Polycarbophil (Fibercon Tab) 1 tab QPM PO 12/09/17 21:30 01/08/18 21:29 12/10/17 20:44 1 TAB Amlodipine Besylate (Norvasc Tab) 10 mg QAM PO 12/10/17 09:00 01/09/18 08:59 12/10/17 07:25 10 MG Pantoprazole Sodium (Protonix Tab) 40 mg QAM PO 12/10/17 09:00 01/09/18 08:59 12/10/17 07:25 40 MG Azithromycin (Zithromax Tab) 500 mg QAM PO 12/10/17 09:00 12/16/17 08:59 12/10/17 07:47 500 MG Ipratropium [place] (Atrovent 0.02% 0.5MG/2.5ML Neb) 0.5 mg Q6R INH 12/10/17 03:00 01/09/18 02:59 12/11/17 07:10 0.5 MG Levalbuterol (Xopenex 1.25MG/ 0.5ML Neb) 1.25 mg Q6R INH 12/10/17 03:00 01/09/18 02:59 12/11/17 07:09 1.25 MG Ipratropium [place] (Atrovent 0.02% 0.5MG/2.5ML Neb) 0.5 mg Q2H PRN INH 12/09/17 21:30 01/08/18 21:29 12/09/17 21:46 0.5 MG Levalbuterol (Xopenex 1.25MG/ 0.5ML Neb) 1.25 mg Q2H PRN INH 12/09/17 21:30 01/08/18 21:29 12/09/17 21:46 1.25 MG Ceftriaxone Sodium 1 gm/ Dextrose 50 ml @ 100 mls/hr Q24H IV 12/10/17 14:00 12/17/17 13:59 12/10/17 14:24 100 MLS/HR Prednisone (PredniSONE TAB) 50 mg DAILY PO 12/10/17 14:00 01/09/18 13:59 12/10/17 14:24 50 MG Fexofenadine HCl (She Tab) 60 mg BID PO 12/11/17 09:00 01/10/18 08:59 Heparin Sodium (Porcine) (Heparin Sq 5000 Unit/0.5ml) 5,000 unit Q8H SQ 12/10/17 17:00 01/09/18 08:59 Vital Signs: Date Time Temp Pulse Resp B/P (MAP) Pulse Ox O2 Delivery O2 Flow Rate FiO2 12/11/17 08:20 Room Air 12/11/17 07:10 81 20 96 Room Air 12/11/17 06:54 36.4 89 20 120/69 (86) 94 Room Air 12/11/17 04:30 36.7 88 20 121/72 (88) 93 Room Air 12/11/17 04:00 Room Air 12/11/17 01:42 85 20 91 Room Air 12/11/17 00:00 Room Air 12/10/17 22:33 36.4 96 20 149/77 (101) 94 Room Air 12/10/17 20:37 82 20 91 Room Air 12/10/17 20:00 Room Air 12/10/17 19:33 36.5 102 18 142/77 (98) 91 Room Air 12/10/17 16:00 Room Air 12/10/17 15:43 37.0 106 17 141/76 (97) 91 Room Air 12/10/17 12:00 Nasal Cannula 2.0 12/10/17 11:59 36.8 99 17 132/78 (96) 90 Room Air Laboratory Results: Last 24 Hours Test 12/10/17 13:21 12/10/17 20:07 12/11/17 05:56 Total Creatine Kinase 206 U/L 202 U/L Creatine Kinase MB 3.2 ng/ml 3.5 ng/ml Creatine Kinase MB Ratio 1.6 1.7 Troponin I < 0.015 ng/ml < 0.015 ng/ml Sodium Level 139 mmol/L Potassium Level 3.7 mmol/L Chloride Level 106 mmol/L Carbon Dioxide Level 25 mmol/L Anion Gap 8.0 mmol/L Blood Urea Nitrogen 25 mg/dl Creatinine 1.14 mg/dl Est Creatinine Clear Calc Drug Dose 63.7 ml/min Estimated GFR () 70.5 Estimated GFR (Non- 60.8 BUN/Creatinine Ratio 21.7 Random Glucose 186 mg/dl Calcium Level 9.6 mg/dl Magnesium Level 1.8 mg/dl
[2017-12-11] MEDS ORDERED: FENTANYL CITRATE INJ 50 MCG/1 ML 2 ML VIAL IV ONE (10:34)
[2017-12-11] MEDS ORDERED: LIDOCAINE VISCOUS 2% 100ML TOP ONE (10:34)
[2017-12-11] MEDS ORDERED: LIDOCAINE 4% INH SOLN 4 ML BTL TOP ONE (10:34)
[2017-12-11] MEDS ORDERED: LIDOCAINE HCL 2% LOCAL 50ML VIAL INSTIL ONE (10:34)
[2017-12-11] MEDS ORDERED: MIDAZOLAM HCL 5 MG/ML 1 ML VIAL IV ONE (10:34)
--- NOTE | 2017-12-11 10:41 | Post Sedation Assessment ---
Post Sedation Assessment General Date of Sedation Dec 11, 2017. Vital Signs: Vital Signs Past 12 Hours Date Time Temp Pulse Resp B/P (MAP) Pulse Ox O2 Delivery O2 Flow Rate FiO2 12/11/17 10:30 100 16 151/99 99 Mask 6 12/11/17 10:25 100 17 144/120 99 Mask 6 12/11/17 10:20 95 16 129/84 97 Mask 6 12/11/17 10:15 100 16 142/92 97 Room Air 12/11/17 10:10 100 16 131/90 97 Room Air 12/11/17 08:20 Room Air 12/11/17 07:10 81 20 96 Room Air 12/11/17 06:54 36.4 89 20 120/69 (86) 94 Room Air 12/11/17 04:30 36.7 88 20 121/72 (88) 93 Room Air 12/11/17 04:00 Room Air 12/11/17 01:42 85 20 91 Room Air 12/11/17 00:00 Room Air Post Procedure Recovery Score Activity: (2) Moves 4 extremities * Respiration: (2) Deep breath/cough Circulation: (2) +/-20% PreAnes Value Consciousness: (2) Fully Awake Oxygen Saturation: (1) O2 needed for >90% Post Anesthesia Score: 9 Discharge Sedation Level of Care: Fast Track Phase II Post Sedation Plan On clinical assessment, the patient appears to have tolerated the sedation without complications. Patient is recovering as anticipated. Patient will continue to be monitored by nursing and may be discharged when sedation discharge criteria are met per below protocol. Upon Completions of procedure and additional 15 minutes continue every 5 minute vital signs and the P.A.R. score; then discharge to a Phase I or Fast Track to Phase II per the following guidelines: * Discharge Patient to appropriate Phase II area if PAR is 8 or greater or return to pre- procedure baseline. The post - procedure orders will be as directed. * If PAR score is less than 8 or not return to pre-procedure baseline then patient will follow Phase I monitoring till PAR is reached for Phase II. The Phase I may be done in procedure room or may call to secure a Phase I area. * If naloxone or flumazenil are used for reversal, hold in Phase I for an additional 60 -120 minutes before discharge to Phase II. Please call the Sedation Physician to re-evaluate and complete post-note for discharge to Phase II area. Do NOT discharge from procedure sedation or Phase 1 until post- sedation evaluation note is complete by procedure /sedation MD Sedation Discharge Instructions to be given to the patient at discharge to home.
--- NOTE | 2017-12-11 10:41 | [facility] Operative Report ---
Operative Report Operative Date Dec 11, 2017. Pre-Operative Diagnosis Bronchopneumonia Post-Operative Diagnosis Bronchopneumonia Procedure(s) Performed FOB w BAL Surgeon Dr Ferrell Findings Chronic Mucopurulent Bronchitis/Bronchopneumonia Complication(s) None Disposition I attest to the content of the Intraoperative Record and any orders documented therein. Any exceptions are noted below.
[2017-12-11] MEDS ORDERED: ORM MISCELLANEOUS MED XX ONE (10:45)
--- NOTE | 2017-12-11 11:27 | OPERATIVE REPORT ---
DATE OF OPERATION: 12/11/2017 PROCEDURE: Fiberoptic bronchoscopy with BAL. INDICATIONS: Bronchopneumonia. ANESTHESIA PREOPERATIVELY: None. ANESTHESIA DURING PROCEDURE: 5 mg IV Versed, 20 mL 2% Xylocaine spray above and below the cords, 4% viscous Xylocaine intranasally. DESCRIPTION OF THE PROCEDURE: Fiberoptic bronchoscope was inserted into the right naris without difficulty and passed to the level of the true vocal cords. The cords appear to approximate normally with phonation without evidence of lesions or paralysis. The scope was then introduced in the trachea and right and left tracheobronchial tree. The trachea showed thick amount of mucopurulent secretion adherent to the left lateral wall that was lavaged until clear. The scope was advanced to the briseyda, which was sharp and then advanced into the right mainstem bronchus. The right upper lobe, the apical posterior, anterior segments, bronchus intermedius, right middle lobe and the medial lateral segments and all basilar segments of right lower lobe were found to be free of endobronchial lesions down to subsegmental bronchi. Copious amount of mucopurulent secretion that was lavaged from all lobar segments, especially the right lower lobe until clear. Bronchial crypts and clefts were visible with mucus pitting throughout the right tracheobronchial tree. Left tracheobronchial tree showed similar findings with mucoid impaction involving left upper lobe. This area was lavaged with normosol. The apical-posterior and anterior segments, lingular subdivision and left lower lobe segmental bronchi and subsegmental bronchi showed also a copious amount of mucopurulent secretion that was lavaged to clear. The procedure was terminated. The patient appeared to tolerate the procedure well and was given a nebulizer treatment with Xopenex 1.25 mg then transferred to the medical treatment unit hemodynamically stable, no signs of respiratory compromise. We will await microbiological and cytologic examination of the bronchial washings. I attest to the content of the Intraoperative Record and any orders documented therein. Any exception s are noted below.
[2017-12-11] MEDS ORDERED: PRED10TA PO (13:50)
[2017-12-11] MEDS ORDERED: TPRSR25 PO (13:50)
[2017-12-11] MEDS ORDERED: ALL60 PO (13:50)
[2017-12-11] MEDS ORDERED: GFNSR600 PO (13:50)
[2017-12-11] MEDS ORDERED: AZIT-57 PO (13:50)
[2017-12-11] MEDS ORDERED: CEFD300C3 PO (13:50)
--- NOTE | 2017-12-11 13:58 | Discharge Instructions ---
Discharge Instructions Date of Service Dec 11, 2017. Admission Reason for Admission: Bronchopneumonia Discharge Discharge Diagnosis / Problem: COPD Exacerbation with Mucous Plugs Discharge Goals Goal(s): Decrease discomfort, Improve function, Increase independence Activity Recommendations Activity Limitations: per Instructions/Follow-up section Lifting Limitations: gradually increase as tolerated Exercise/Sports Limitations: gradually increase as tolerated . Instructions / Follow-Up Instructions / Follow-Up Pneumonia with Bronchitis/COPD Exacerbation: - Will continue Cefdinir twice a day and Zithromax daily - you had antibiotics today and will start this tomorrow on 12/12 -- Take Cefdinir twice a day until complete -- Zithromax is a long acting antibiotic and will only need this for 2 more days - Will taper your steroids down as follows - start this tomorrow on 12/12 as well -- Prednisone 40 mg (4 tabs) for 2 days then 30 mg (3 tabs) for 2 days then 20 mg (2 tabs) for 2 days then 10 mg (1 tab) for 2 days then stop - Continue Mucinex twice a day and She twice a day to help thin your mucous and help with nasal congestion - The lung doctors will be following up with you to do further testing Echo Findings: - Your echo findings show new changes in the wall motion of the heart. Will set an appointment up with a heart doctor as they may want to do further testing or even a catheterization. - To help your heart we will start Toprol XL 25 mg daily - this is a blood pressure medication but it is also used to help the heart to not have to work so hard Home Medications: - All your other medications can be resumed as you normally took them FOLLOW-UP APPOINTMENTS: Dr. Stafford appointment - MondayDecember 18 at 11:30 am [facility] Cardiology w/ Helga Maddox PA-C on MondayDecember 26 at 1:30 pm in the [facility] Current Hospital Diet Patient's current hospital diet: Regular Diet Discharge Diet Recommended Diet: Regular Diet Procedures Procedures Performed: BRONCHOSCOPY Pending Studies Studies pending at discharge: yes List of pending studies: Cultures and studies from bronchoscopy Medical Emergencies . Who to Call and When: Medical Emergencies: If at any time you feel your situation is an emergency, please call 911 immediately. . Non-Emergent Contact Non-Emergency issues call your: Primary Care Provider Call Non-Emergent contact if: you have a fever, your pain is concerning you, you have any medication questions . . "Provider Documentation" section prepared by Claudia Paul. .
[2017-12-11] MEDS: CEFTRIAXONE SOD INJ 1 GM in DEXTROSE 5% ADD-VANTAGE 50ML 50 ML IV SCH (14:09)
[2017-12-11] MEDS ORDERED: METOPROLOL SUCC 25MG EXT REL TAB PO ONE (14:30)
--- NOTE | 2017-12-11 16:16 | Discharge Summary ---
Discharge Summary Date of Service Dec 11, 2017. Discharge Summary Admission Date: Dec 09, 2017 at 19:31 Discharge Date: Dec 11, 2017 Discharge Disposition: Home Principal Diagnosis: Pneumonia and COPD Exacerbation Problems/Secondary Diagnoses: Medical Problems: (1) Acute respiratory failure with hypoxia (2) Bronchopneumonia (3) Choledocholithiasis (4) COPD (chronic obstructive pulmonary disease) (5) Hypertension (6) Hypomagnesemia (7) Hypophosphatemia (8) Right lower lobe pneumonia (9) S/P hernia repair (10) Sepsis (11) UTI (lower urinary tract infection) Surgical Problems: (1) S/P hip replacement (2) S/P knee replacement (3) Status post laparoscopic cholecystectomy Immunizations: Have You Had Influenza Vaccine: Unknown History of Tetanus Vaccine?: Unknown History of Pneumococcal: Unknown History of Hepatitis B Vaccine: Unknown Procedures: SINGLE VIEW CHEST FINDINGS: 2 AP, portable, upright chest radiographs are compared to study dated 10/23/2017 and correlated with chest CT dated 11/27/2017. The examination is degraded by portable technique and patient rotation. The heart is enlarged and there is atherosclerotic calcification of the thoracic aorta. The pulmonary vasculature is noncongested. Chronic elevation of right hemidiaphragm is similar to previous and there is bibasilar atelectasis. Patchy airspace consolidation is seen in the right midlung. No large pleural effusion or pneumothorax is seen. The skeletal structures are osteopenic. The bony thorax is grossly intact. Calcified joint bodies are noted in the right shoulder. IMPRESSION: 1. Cardiomegaly without radiographic evidence of congestive failure. 2. Patchy airspace consolidation is seen in the right midlung. Correlate clinically for evidence of an infectious/inflammatory pneumonitis. Radiographic follow-up to resolution is recommended. ECHOCARDIOGRAM: * 1. Mildly dilated left ventricle with mildly reduced systolic function. Estimated EF 45%. Mild global hypokinesis. Severe asymmetric hypertrophy of the anteroseptal base. Otherwise mild left ventricular hypertrophy. Type 1 diastolic dysfunction. * 2. The left atrium is mildly dilated. * 3. There is mild to moderate mitral regurgitation. * 4. Normal estimated right ventricular systolic pressure, assuming normal right atrial pressure (IVC not well visualized). * 5. No prior study available for comparison. Consultations: 1. Pulmonology Medication Reconciliation New Medications: Cefdinir (Cefdinir) 300 Mg Cap 300 MG PO BID for 5 Days, #10 CAP Start on 12/12. Azithromycin (Azithromycin) 250 Mg Tab 500 MG PO QAM for 2 Days, #4 TAB Start on 12/12. Fexofenadine HCl (Fexofenadine HCl) 60 Mg Tab 60 MG PO BID for 7 Days, #14 TAB Guaifenesin Ext Rel (Mucinex Ext Rel) 600 Mg Tabcr 600 MG PO BID for 5 Days, #10 TABS Metoprolol Succinate (Metoprolol Succinate ER) 25 Mg Tabcr 25 MG PO QAM for 30 Days, #30 TABS Prednisone Tab (Prednisone) 10 Mg Tab 10 MG PO UD, #20 TAB Continued Medications: Albuterol Sulfate (Proair Respiclick) 108 Mcg/Act Aer 2 PUFFS INH QID PRN for Cough/SOB/Wheeze Amlodipine Besylate (Amlodipine Besylate) 10 Mg Tab 10 MG PO DAILY Aspirin (Aspirin Ec) 81 Mg Tab 81 MG PO DAILY Budesonide/Formoterol Fumarate (Symbicort 160/4.5 Inhaler) 120 Puffs/ Aero 2 PUFFS INH BID, INHALER Fiber Laxative (Fiber Laxative) Ea 800 MG PO QPM Finasteride (Finasteride) 5 Mg Tab 5 MG PO DAILY Fluticasone Propionate (Fluticasone Propionate) 120 Sprays/6000 Mcg Inha 2 SPRAYS SURINDER HS Hydrochlorothiazide (Hydrochlorothiazide) 25 Mg Tab 12.5 MG PO DAILY Ibuprofen (Advil) 200 Mg Tab 400 MG PO BID, TAB Ipratropium-Albuterol (Duoneb) 3 Ml Nebu 1 TREATMENT NEB Q4H PRN for SOB/Wheezing, INHA Omeprazole (Prilosec) 20 Mg Cap 20 MG PO DAILY Discharge Exam Review of Systems: Constitutional: No fever, No chills ENT: + nasal symptoms, No sore throat Respiratory: + cough, + sputum, No dyspnea on exertion, No dyspnea at rest Cardiovascular: No chest pain, No orthopnea Abdomen: No pain, No nausea, No vomiting, No diarrhea, No constipation Musculoskeletal: No swelling, No calf pain Genitourinary - Male: No dysuria Hematologic / Lymphatic: No abnormal bleeding/bruising Physical Exam: General Appearance: WD/WN, no apparent distress Eyes: sclerae normal ENT: hearing grossly normal Neck: supple, no JVD, trachea midline Respiratory/Chest: no respiratory distress, no accessory muscle use, + rhonchi (bases b/l), + wheezing (exp.; scatterd) Cardiovascular: regular rate, rhythm, no gallop, no murmur Abdomen / GI: normal bowel sounds, non tender, soft Extremities: no pedal edema Neurologic/Psychiatric: alert, oriented x 3 Skin: normal color, warm/dry Hospital Course ADMISSION: The patient is a 77-year-old male who presents to the emergency department with symptoms that began initially as sinus drainage this morning, that then progressed into a productive cough and worsening thick, yellow sinus drainage after mowing his lawn. He did utilize a home nebulizer treatment and a Marah pot, with some improvement in symptoms however, his cough and drainage worsened as the day went on, he developed chills, and has presented to the emergency department for assessment. 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 He has not had any recent travels or sick exposures. Is otherwise not had any significant change in exercise pattern, eating pattern or daily activities, and reports that he has been getting his usual sleep. HOSPITAL COURSE: R Sided Pneumonia and COPD Exacerbation: Community Acquired - Initially treated with Rocephin and Zithromax and will convert to Cefdinir 300 mg BID x 5 more days and Zithromax 500 mg x 2 more days - Steroid taper starting at 40 mg daily and reducing by 10 mg each 2 days; Continue home nebs - Will continue Mucinex BID and She BID - S/P bronchoscopy by Dr. Ferrell on 12/11 - tolerated well and breathing improved -- Planning for outpatient F/U with planned PFTs Mild Global Hypokinesis and Mildly Reduced EF: - This was found on echocardiogram without other studies to compare - no ischemic symptoms currently - Started Toprol XL 25 mg daily and set up F/U appointment with cardiology to see if further testing would be necessary HTN: - Continue HCTZ and Amlodipine; Discussed with family to monitor BP now with the addition of Toprol XL with pressures in hospital this should be tolerated -- Could consider supplementing for Amlodipine if low pressure is an issue to promote heart protection given echo findings Disposition: - F/U with Dr. Stafford, Pulmonology, and Cardiology in near future Total Time Spent: Greater than 30 minutes This includes examination of the patient, discharge planning, medication reconciliation, and communication with other providers. Discharge Instructions Please refer to the electronic Patient Visit Report (Discharge Instructions) for additional information. Additional Copies To Fiona Stafford M.D.; Helga Maddox, OTNI
[2017-12-12] MEDS ORDERED: METOPROLOL SUCC 25MG EXT REL TAB PO SCH (09:00)
[2017-12-13 11:03] LABS: HERPES SIMPLEX VIRUS CULT NOT ISOLATED (NOT ISOLATED)
== END 2017-12-11 15:39 | disposition home or self-care (01) | DRG 166 ==
LOC: C.EDB 17:36 → C.MED 19:31 → ENRESERV 19:50
PROVIDERS: ADMIT Hospitalist; ATTEND Internal Medicine
PROC: 0B9F8ZX Drainage of Right Lower Lung Lobe, Via Natural or Artificial Opening Endoscopic, Diagnostic (ICD-10-PCS; principal; 2017-12-11 09:52)
PROC: 0B9G8ZZ Drainage of Left Upper Lung Lobe, Via Natural or Artificial Opening Endoscopic (ICD-10-PCS; principal; 2017-12-11 09:52)
PROC: 0B918ZZ Drainage of Trachea, Via Natural or Artificial Opening Endoscopic (ICD-10-PCS; principal; 2017-12-11 09:52)
DX: J44.0 Chronic obstructive pulmonary disease with (acute) lower respiratory infection (principal); J18.0 Bronchopneumonia, unspecified organism; J44.1 Chronic obstructive pulmonary disease with (acute) exacerbation; I10 Essential (primary) hypertension; K21.9 Gastro-esophageal reflux disease without esophagitis; N40.0 Benign prostatic hyperplasia without lower urinary tract symptoms; J32.9 Chronic sinusitis, unspecified; R91.8 Other nonspecific abnormal finding of lung field; E83.42 Hypomagnesemia; J30.9 Allergic rhinitis, unspecified; Z79.82 Long term (current) use of aspirin; Z79.899 Other long term (current) drug therapy; Z87.891 Personal history of nicotine dependence; Z88.1 Allergy status to other antibiotic agents; Z88.5 Allergy status to narcotic agent

== ENCOUNTER → 2018-01-09 | Outpatient (CLI) | payer OTHER, BC ==
[~2018-01-09] MED LIST changes: -ADVIN25/60 INH; +ALL60 PO; +AZIT-57 PO; +CEFD300C3 PO; +GFNSR600 PO; +PRED10TA PO; +SYMIN160 INH; +TPRSR25 PO
--- NOTE | 2018-01-09 10:34 | DIAGNOSTIC IMAGING REPORT ---
CHEST 2 VIEWS ROUTINE HISTORY: J18.9 Community acquired [id number] COMPARISON: Chest 12/09/2017. FINDINGS: Right midlung zone airspace opacity has resolved. Punctate calcification is seen within the right midlung zone. Linear density lung bases favor scarring or atelectasis. No pleural effusions. No pneumothorax. The heart is normal in size. Mild elevation the right hemidiaphragm. IMPRESSION: 1. Interval resolution of the right midlung zone airspace opacity. 2. Bibasilar linear densities favor subsegmental atelectasis. Electronically signed by: Brown Chavez M.D. 01/09/2018 10:32 AM Dictated Date/Time: 01/09/2018 10:29 AM
== END | disposition home or self-care (01) ==
LOC: C.RAD 09:42
PROVIDERS: ATTEND Physician Assistant
DX: J18.9 Pneumonia, unspecified organism (principal)

== ENCOUNTER 2018-08-01 16:28 | Inpatient (IN) ==
[2018-08-01 17:26] LABS: Hematocrit (blood only) 43.7 % (42-52); Hemoglobin 14.8 g/dL (14.0-18.0); Mean Corpuscular Hgb Conc 33.9 g/dL (32-36); Mean Corpuscular Volume 97.3 fL (80-100); Mean Platelet Volume 9.7 fL (7.4-10.4); Platelet Count 315 K/uL (130-400); RDW Coefficient of Variation 12.6 % (11.5-14.5); Red Blood Count 4.49 M/uL (4.7-6.1); White Blood Count 19.03 K/uL (4.8-10.8)
[2018-08-01 17:34] LABS: Prothrombin Time 10.8 Seconds (9.0-12.0)
[2018-08-01 17:36] LABS: Base Excess VBG 3.2 mEq/L; Oxygen Saturation VBG 88.1 %; pH VBG 7.47 (7.36-7.41)
[2018-08-01 17:44] LABS: Alanine Aminotransferase 28 U/L (12-78); Albumin Level 3.4 gm/dl (3.4-5.0); Aspartate Aminotransferase 25 U/L (15-37); BUN Creatinine Ratio 19.7 (10-20); Blood Urea Nitrogen 27 mg/dl (7-18); Calcium 9.4 mg/dl (8.5-10.1); Carbon Dioxide 23 mmol/L (21-32); Chloride 101 mmol/L (98-107); Creatinine Clr Calc Pharmacy 52.2 ml/min; Est GFR (African American) 56.6; Est GFR (Non-African American) 48.8; Glucose 163 mg/dl (70-99); Magnesium 1.2 mg/dl (1.8-2.4); Potassium 3.8 mmol/L (3.5-5.1); Sodium 138 mmol/L (136-145)
[2018-08-01 17:49] LABS: Albumin Globulin Ratio 0.9 (0.9-2); Alkaline Phosphatase 60 U/L (45-117); Bilirubin,Total 0.9 mg/dl (0.1-1); Globulin 3.8 gm/dl (2.5-4.0); NT Pro B Type Natriuretic Pept 479 pg/ml (0-1800); Phosphorus 2.6 mg/dl (2.5-4.9); Total Protein 7.2 gm/dl (6.4-8.2); Troponin I < 0.015 ng/ml (0-0.045)
[2018-08-01 18:04] LABS: Basophils # (auto) 0.03 K/uL (0-0.2); Basophils % (auto) 0.2 %; Eosinophils # (auto) 0.04 K/uL (0-0.5); Eosinophils % (auto) 0.2 %; Immature Granulocytes # (auto) 0.04 K/uL (0.00-0.02); Immature Granulocytes % (auto) 0.2 %; Lymphocytes # (auto) 0.69 K/uL (1.2-3.4); Lymphocytes % (auto) 3.6 %; Monocytes # (auto) 0.45 K/uL (0.11-0.59); Monocytes % (auto) 2.4 %; Neutrophils # (auto) 17.78 K/uL (1.4-6.5); Neutrophils % (auto) 93.4 %
[2018-08-01 18:56] LABS: Influenza A virus by PCR Neg for Influ A (Neg); Influenza B virus by PCR Neg for Influ B (Neg)
[2018-08-01 22:11] LABS: Appearance Urine Clear (Clear); Bilirubin Urine Negative (Negative); Color Urine Dark Yellow; Glucose Urine UA Negative (Negative); Ketones Urine Trace (Negative); Leukocyte Esterase Urine Negative (Negative); Nitrite Urine Negative (Negative); Protein Urine Negative (Negative); Specific Gravity Urine 1.027 (1.000-1.030); Urobilinogen Urine Negative (Negative)
[2018-08-02 07:14] LABS: Albumin Level 2.7 gm/dl (3.4-5.0); BUN Creatinine Ratio 18.9 (10-20); Calcium 8.4 mg/dl (8.5-10.1); Creatinine Clr Calc Pharmacy 56.6 ml/min; Est GFR (Non-African American) 53.5; Magnesium 2.4 mg/dl (1.8-2.4); Potassium 4.1 mmol/L (3.5-5.1)
[2018-08-02 07:16] LABS: Albumin Globulin Ratio 0.8 (0.9-2); Bilirubin,Total 0.7 mg/dl (0.1-1); Globulin 3.6 gm/dl (2.5-4.0); Phosphorus 2.2 mg/dl (2.5-4.9); Total Protein 6.3 gm/dl (6.4-8.2)
[2018-08-02 07:18] LABS: Hematocrit (blood only) 39.1 % (42-52); Mean Corpuscular Hgb Conc 33.2 g/dL (32-36); Platelet Count 320 K/uL (130-400); RDW Coefficient of Variation 12.7 % (11.5-14.5); RDW Standard Deviation 45.2 fL (36.4-46.3); Red Blood Count 3.99 M/uL (4.7-6.1)
[2018-08-03 06:26] LABS: Hematocrit (blood only) 36.4 % (42-52); Hemoglobin 12.2 g/dL (14.0-18.0); Mean Corpuscular Hgb Conc 33.5 g/dL (32-36); Mean Corpuscular Volume 97.8 fL (80-100); Mean Platelet Volume 9.9 fL (7.4-10.4); Platelet Count 282 K/uL (130-400); RDW Coefficient of Variation 12.8 % (11.5-14.5); RDW Standard Deviation 45.8 fL (36.4-46.3); Red Blood Count 3.72 M/uL (4.7-6.1); White Blood Count 27.35 K/uL (4.8-10.8)
[2018-08-03 07:00] LABS: BUN Creatinine Ratio 21.9 (10-20); Calcium 8.8 mg/dl (8.5-10.1); Est GFR (African American) 79.1; Est GFR (Non-African American) 68.3; Potassium 3.8 mmol/L (3.5-5.1)
[2018-08-03 07:12] LABS: Estimated Average Glucose 180 mg/dl
[2018-08-04 06:28] LABS: Basophils # (auto) 0.01 K/uL (0-0.2); Basophils % (auto) 0.1 %; Eosinophils # (auto) 0.01 K/uL (0-0.5); Eosinophils % (auto) 0.1 %; Hemoglobin 12.9 g/dL (14.0-18.0); Immature Granulocytes % (auto) 0.6 %; Lymphocytes # (auto) 1.61 K/uL (1.2-3.4); Lymphocytes % (auto) 9.3 %; Mean Corpuscular Hgb Conc 33.1 g/dL (32-36); Mean Corpuscular Volume 98.2 fL (80-100); Mean Platelet Volume 10.3 fL (7.4-10.4); Monocytes # (auto) 1.22 K/uL (0.11-0.59); Neutrophils # (auto) 14.38 K/uL (1.4-6.5); Neutrophils % (auto) 82.9 %; Platelet Count 300 K/uL (130-400); RDW Coefficient of Variation 12.7 % (11.5-14.5); RDW Standard Deviation 45.8 fL (36.4-46.3); Red Blood Count 3.97 M/uL (4.7-6.1); White Blood Count 17.33 K/uL (4.8-10.8)
[2018-08-04 06:37] LABS: BUN Creatinine Ratio 21.2 (10-20); Calcium 9.1 mg/dl (8.5-10.1); Creatinine Clr Calc Pharmacy 74.8 ml/min; Est GFR (African American) 87.3; Est GFR (Non-African American) 75.3; Potassium 3.8 mmol/L (3.5-5.1)
== END 2018-08-04 15:00 | disposition home or self-care (01) ==
LOC: ED 16:28 → SUATTDRO 19:41 → 2E 19:41 → 4E 08-03 16:04

== ENCOUNTER 2018-09-16 13:12 | Inpatient (IN) ==
[2018-09-16] MEDS ORDERED: ONDANSETRON INJ 2 MG/ML 2 ML VIAL IV STA (13:38)
[2018-09-16] MEDS ORDERED: SODIUM CHLORIDE 0.9% 500 ML IV SCH (13:45)
[2018-09-16 13:58] LABS: Basophils # (auto) 0.03 K/uL (0-0.2); Basophils % (auto) 0.2 %; Eosinophils # (auto) 0.02 K/uL (0-0.5); Eosinophils % (auto) 0.1 %; Hematocrit (blood only) 45.1 % (42-52); Hemoglobin 15.2 g/dL (14.0-18.0); Immature Granulocytes # (auto) 0.06 K/uL (0.00-0.02); Immature Granulocytes % (auto) 0.3 %; Lymphocytes # (auto) 0.78 K/uL (1.2-3.4); Lymphocytes % (auto) 4.2 %; Mean Corpuscular Hgb Conc 33.7 g/dL (32-36); Mean Corpuscular Volume 99.1 fL (80-100); Monocytes # (auto) 0.81 K/uL (0.11-0.59); Monocytes % (auto) 4.4 %; Neutrophils # (auto) 16.92 K/uL (1.4-6.5); Neutrophils % (auto) 90.8 %; Platelet Count 332 K/uL (130-400); RDW Coefficient of Variation 12.9 % (11.5-14.5); RDW Standard Deviation 46.8 fL (36.4-46.3); Red Blood Count 4.55 M/uL (4.7-6.1); White Blood Count 18.62 K/uL (4.8-10.8)
[2018-09-16] MEDS ORDERED: ALBUT/IPRATROP 3MG/0.5MG NEB 3 ML VIAL NEB STA (14:14)
--- NOTE | 2018-09-16 14:15 | XRay Report ---
XR chest 1V portable CLINICAL HISTORY: 78 years-old Male presenting with weakness. TECHNIQUE: Portable upright AP view of the chest was obtained. COMPARISON: 08/02/2018. FINDINGS: Atherosclerosis of the aortic arch. Cardiac silhouette normal in size. Minimal basilar opacities. No pleural effusion or pneumothorax. Degenerative changes of the thoracic spine. Degenerative changes of the glenohumeral joints. IMPRESSION: 1. Minimal basilar opacities likely atelectasis, scarring, or minimal aspiration. No convincing evid ence of acute cardiopulmonary disease. Electronically signed by: Florencio Sinclair M.D. 09/16/2018 2:13 PM
[2018-09-16 14:24] LABS: Albumin Level 3.8 gm/dl (3.4-5.0); BUN Creatinine Ratio 22.2 (10-20); Calcium 9.3 mg/dl (8.5-10.1); Creatinine Clr Calc Pharmacy 65.3 ml/min; Est GFR (African American) 75.6; Est GFR (Non-African American) 65.2; Globulin 3.8 gm/dl (2.5-4.0); Magnesium 0.8 mg/dl (1.8-2.4); Potassium 3.8 mmol/L (3.5-5.1); Total Protein 7.6 gm/dl (6.4-8.2)
[2018-09-16] MEDS ORDERED: PIPERACILLIN/TAZOBACTAM 3.375 GM/115 ML BAG IV STA (14:28)
[2018-09-16] MEDS ORDERED: MAGNESIUM SULFATE / D5W 1 GM/100 ML BAG IV ONE (14:28)
[2018-09-16] MEDS ORDERED: PIPERACILL/TAZOBAC CONSULT ACTIVE PRN ×2 (14:28→19:00)
[2018-09-16 14:44] LABS: Appearance Urine Clear (Clear); Bilirubin Urine Negative (Negative); Color Urine Yellow; Glucose Urine UA Negative (Negative); Ketones Urine Trace (Negative); Leukocyte Esterase Urine Negative (Negative); Nitrite Urine Negative (Negative); Protein Urine Negative (Negative); Specific Gravity Urine 1.018 (1.000-1.030); Urobilinogen Urine Negative (Negative)
--- NOTE | 2018-09-16 14:56 | Emergency Department Note ---
Entered by Jose Francisco Dailey acting as a scribe for Umesh aFrmer DO History of Present Illness General Chief complaint: Illness Stated complaint: SOB,NAUSEA,CHILLS Time Seen by Provider: 09/16/18 13:26 Source: patient and family (daughter) History of Present Illness Provider complaint: chills Onset (ago): day(s) (day around 1130) Location: head Severity: similar to prior episodes (was here in the ER for similar symptoms) Pain Consistency: + other (sudden) Maximum Pain Intensity: 5 Quality: + other (chills) Associated symptoms: + other (left lower back pain, runny nose) Treatments prior to arrival: other (ibuprofen) The patient is an 78 year old male who presents to the Emergency Room with complaints of chills that started suddenly around 1130 today while he was eating lunch. The patient reports that last night he developed lower back pain that eventually resonated to the left side. The patient reports that he took two ibuprofen today which seemed to provide some relief. He reports his pain subsides around the time of his onset of the chills. Per the patient's daughter , the patient was here a month ago with the same symptoms and states that the patient's magnesium was very low and did not return to normal until they gave him oxygen or an IV. She also reports that during this visit the patient was diagnosed with type II diabetes. The patient states that he typically has very bad sinus problems, but states his nose has been running more frequently this past week. Home Medications Home Medications Medication Instructions Recorded Confirmed Type albuterol sulfate [ProAir 2 puff INHALATION QID PRN 04/29/18 08/01/18 History RespiClick] aspirin 81 mg PO QAM 04/29/18 08/01/18 History atorvastatin 40 mg PO HS 04/29/18 08/01/18 History budesonide-formoterol [Symbicort] 2 puff INHALATION BID 04/29/18 08/01/18 History finasteride 5 mg PO QAM 04/29/18 08/01/18 History ipratropium-albuterol 1 neb INHALATION QPM 04/29/18 08/01/18 History metoprolol succinate 50 mg PO QAM 04/29/18 08/01/18 History psyllium husk [Metamucil] 0.8 g PO HS PRN 04/29/18 08/01/18 History omeprazole 40 mg PO QAM #30 cap 05/01/18 08/01/18 Rx calcium polycarbophil [FiberCon] 1,250 mg PO QPM 08/01/18 08/01/18 History fluticasone 1 spray INTRANASAL QAM 08/01/18 08/01/18 History fluticasone 2 spray INTRANASAL QPM 08/01/18 08/01/18 History hydrochlorothiazide 25 mg PO QAM 08/01/18 08/01/18 History losartan 50 mg PO QAM 08/01/18 08/01/18 History amoxicillin-pot clavulanate 1 tab PO BIDM #14 tab 08/04/18 Rx blood sugar diagnostic [OneTouch #35 ea 08/04/18 Rx Verio strips] guaifenesin [Mucinex] 1,200 mg PO Q12 #60 tab 08/04/18 Rx lancets [OneTouch UltraSoft #50 ea 08/04/18 Rx Lancets] metformin 500 mg PO BID #60 tab 08/04/18 Rx prednisone 30 mg PO DAILY #3 tabs 08/04/18 Rx Allergies Allergy/AdvReac Type Severity Reaction Status Date / Time hydrocodone [From Vicodin] Allergy Severe Gastrointestinal Verified 08/01/18 07: 53 Upset levofloxacin Allergy Severe facial Verified 08/01/18 07:53 swelling oxycodone [From OxyContin] Allergy Severe Gastrointestinal Verified 08/01/18 07: 53 Upset Past Med/Surg History Social History marital status: Current Living Situation: Spouse Feels Safe at Home: Yes Smoking Status: Former smoker Tobacco Type: cigarettes Second Hand Exposure: No Hx Alcohol Use: No Hx Substance Use: No Beliefs That Will Affect Care: None Preferred Language: Mauritanian Review of Systems See HPI for pertinent positives & negatives. and A total of 10 systems reviewed and were otherwise negative Physical Exam Vital Signs Vital Signs - 24 hr 09/16/18 13:16 09/16/18 13:27 09/16/18 13:28 Temperature 36.8 C Temperature Source Oral Sepsis Recent Fever Within 48 Hours No Sepsis New/Unexplained Change in Mental Status No Sepsis Action Taken by Nursing No Action Required Pulse Rate 89 97 H Respiratory Rate 20 18 Respiratory Effort / Characteristics Non-Labored Respiratory Depth Normal Respiratory Pattern Regular Blood Pressure 139/76 175/94 H Blood Pressure Mean 97 121 Blood Pressure Position Sitting Pulse Oximetry 90 89 L 89 L Oxygen Delivery Method Room Air Room Air Oxygen Flow Rate 09/16/18 13:29 09/16/18 13:31 Temperature Temperature Source Sepsis Recent Fever Within 48 Hours Sepsis New/Unexplained Change in Mental Status Sepsis Action Taken by Nursing Pulse Rate 97 H Respiratory Rate 22 Respiratory Effort / Characteristics Respiratory Depth Respiratory Pattern Blood Pressure 177/94 H Blood Pressure Mean 121 Blood Pressure Position Pulse Oximetry 93 95 Oxygen Delivery Method Nasal Cannula Nasal Cannula Oxygen Flow Rate 2 2 CONSTITUTIONAL/VITAL SIGNS: Reviewed / noted above. GENERAL: Non-toxic in appearance. INTEGUMENTARY: Warm, dry, and [place]. HEAD: Normocephalic. EYES: without scleral icterus or trauma. ENT/OROPHARYNX: clear and moist. LYMPHADENOPATHY/NECK: Is supple without lymphadenopathy or meningismus. RESPIRATORY: Lungs clear and equal. CARDIOVASCULAR: Regular rate and rhythm. GI/ABDOMEN: Soft and nontender. No organomegaly or pulsatile mass. No rebound or guarding. Normal bowel sounds. EXTREMITIES: Warm and well perfused. BACK: No CVA tenderness. NEUROLOGICAL: Intact without focal deficits. PSYCHIATRIC: normal affect. MUSCULOSKELETAL: Normally developed with good muscle tone. Course 1330: Past medical records reviewed. The patient was evaluated in room A9B, and a complete history and physical examination were performed. 1431: I reevaluated the patient and discussed today's findings with him as well as my recommendation for inpatient stay. 1435: I reviewed the patient's case with Dr. Goodman, [facility] Hospitalist. She will evaluate the patient for further management. Administered Medications Sodium Chloride (Nss) 500 mls @ 250 mls/hr IV .Q2H BAILEY Stop: 09/16/18 15:44 Last Admin: 09/16/18 13:53 Dose: 250 mls/hr Magnesium Sulfate/Dextrose (Magnesium Sulfate / D5w) 1 gm in 100 mls @ 100 mls/ hr IV ONE ONE Stop: 09/16/18 15:27 Last Admin: 09/16/18 14:40 Dose: 100 mls/hr Discontinued Medications Albuterol (Duoneb) 3 ml NEB NOW STA Stop: 09/16/18 14:15 Last Admin: 09/16/18 14:22 Dose: 3 ml Ondansetron HCl (Zofran) 4 mg IV NOW STA Stop: 09/16/18 13:39 Last Admin: 09/16/18 13:53 Dose: 4 mg Medical Decision Making Differential Diagnosis Differential diagnosis: Etiologies such as metabolic, infection, hypo/hyperglycemia, electrolyte abnormalities, cardiac sources, intracerebral event, toxicologic, neurologic, as well as others were entertained. Medical Records Attestation: I reviewed the patient's medical records. Home Medications Current Medication List: was personally reviewed by me Laboratory Data Attestation: I reviewed the patient's lab results. Result diagrams: 09/16/18 13:45 09/16/18 13:45 Lab Results 09/16/18 09/16/18 09/16/18 Range/Units 13:45 13:45 13:45 WBC 18.62 H (4.8-10.8) K/uL RBC 4.55 L (4.7-6.1) M/uL Hgb 15.2 (14.0-18.0) g/dL Hct 45.1 (42-52) % MCV 99.1 (80-100) fL MCH 33.4 (25-34) pg MCHC 33.7 (32-36) g/dL RDW Std Deviation 46.8 H (36.4-46.3) fL RDW Coeff of Vasquez 12.9 (11.5-14.5) % Plt Count 332 (130-400) K/uL MPV 10.0 (7.4-10.4) fL Immature Gran % (Auto) 0.3 % Neut % (Auto) 90.8 % Lymph % (Auto) 4.2 % [place] % (Auto) 4.4 % Eos % (Auto) 0.1 % Baso % (Auto) 0.2 % Immature Gran # (Auto) 0.06 H (0.00-0.02) K/uL Neut # (Auto) 16.92 H (1.4-6.5) K/uL Lymph # (Auto) 0.78 L (1.2-3.4) K/uL [place] # (Auto) 0.81 H (0.11-0.59) K/uL Eos # (Auto) 0.02 (0-0.5) K/uL Baso # (Auto) 0.03 (0-0.2) K/uL Sodium 141 (136-145) mmol/L Potassium 3.8 (3.5-5.1) mmol/L Chloride 104 (98-107) mmol/L Carbon Dioxide 28 (21-32) mmol/L Anion Gap 10.0 (3-11) BUN 24 H (7-18) mg/dl Creatinine 1.07 (0.6-1.4) mg/dl Est Cr Clr Drug Dosing 65.3 ml/min Est GFR ( Amer) 75.6 Est GFR (Non-Af Amer) 65.2 BUN/Creatinine Ratio 22.2 H (10-20) Glucose 144 H (70-99) mg/dl Calcium 9.3 (8.5-10.1) mg/dl Magnesium 0.8 L* (1.8-2.4) mg/dl Total Bilirubin 1.0 (0.2-1) mg/dl AST 27 (15-37) U/L ALT 37 (12-78) U/L Alkaline Phosphatase 61 (45-117) U/L Total Protein 7.6 (6.4-8.2) gm/dl Albumin 3.8 (3.4-5.0) gm/dl Globulin 3.8 (2.5-4.0) gm/dl Albumin/Globulin Ratio 1.0 (0.9-2) Urine Color Urine Appearance (Clear) Urine pH (4.5-7.5) Ur Specific Nolan (1.000-1.030) Urine Protein (Negative) Urine Glucose (UA) (Negative) Urine Ketones (Negative) Urine Blood (Negative) Urine Nitrite (Negative) Urine Bilirubin (Negative) Urine Urobilinogen (Negative) Ur Leukocyte Esterase (Negative) Influenza Type A Ag Neg for Influ A (Neg) Influenza Type B Ag Neg for Influ B (Neg) 09/16/18 Range/Units 14:30 WBC (4.8-10.8) K/uL RBC (4.7-6.1) M/uL Hgb (14.0-18.0) g/dL Hct (42-52) % MCV (80-100) fL MCH (25-34) pg MCHC (32-36) g/dL RDW Std Deviation (36.4-46.3) fL RDW Coeff of Vasquez (11.5-14.5) % Plt Count (130-400) K/uL MPV (7.4-10.4) fL Immature Gran % (Auto) % Neut % (Auto) % Lymph % (Auto) % [place] % (Auto) % Eos % (Auto) % Baso % (Auto) % Immature Gran # (Auto) (0.00-0.02) K/uL Neut # (Auto) (1.4-6.5) K/uL Lymph # (Auto) (1.2-3.4) K/uL [place] # (Auto) (0.11-0.59) K/uL Eos # (Auto) (0-0.5) K/uL Baso # (Auto) (0-0.2) K/uL Sodium (136-145) mmol/L Potassium (3.5-5.1) mmol/L Chloride (98-107) mmol/L Carbon Dioxide (21-32) mmol/L Anion Gap (3-11) BUN (7-18) mg/dl Creatinine (0.6-1.4) mg/dl Est Cr Clr Drug Dosing ml/min Est GFR ( Amer) Est GFR (Non-Af Amer) BUN/Creatinine Ratio (10-20) Glucose (70-99) mg/dl Calcium (8.5-10.1) mg/dl Magnesium (1.8-2.4) mg/dl Total Bilirubin (0.2-1) mg/dl AST (15-37) U/L ALT (12-78) U/L Alkaline Phosphatase (45-117) U/L Total Protein (6.4-8.2) gm/dl Albumin (3.4-5.0) gm/dl Globulin (2.5-4.0) gm/dl Albumin/Globulin Ratio (0.9-2) Urine Color Yellow Urine Appearance Clear (Clear) Urine pH 5.0 (4.5-7.5) Ur Specific Nolan 1.018 (1.000-1.030) Urine Protein Negative (Negative) Urine Glucose (UA) Negative (Negative) Urine Ketones Trace H (Negative) Urine Blood Negative (Negative) Urine Nitrite Negative (Negative) Urine Bilirubin Negative (Negative) Urine Urobilinogen Negative (Negative) Ur Leukocyte Esterase Negative (Negative) Influenza Type A Ag (Neg) Influenza Type B Ag (Neg) Imaging Data Radiologist's Impression: Radiology results as stated below per my review and the radiologist's interpretation: XR chest 1V portable CLINICAL HISTORY: 78 years-old Male presenting with weakness. TECHNIQUE: Portable upright AP view of the chest was obtained. COMPARISON: 08/02/2018. FINDINGS: Atherosclerosis of the aortic arch. Cardiac silhouette normal in size. Minimal basilar opacities. No pleural effusion or pneumothorax. Degenerative changes of the thoracic spine. Degenerative changes of the glenohumeral joints. IMPRESSION: 1. Minimal basilar opacities likely atelectasis, scarring, or minimal aspiration. No convincing evidence of acute cardiopulmonary disease. Electronically signed by: Florencio Sinclair M.D. 09/16/2018 2:13 PM ECG Data Attestation: I personally reviewed and interpreted this ECG as follows: Indication: SOB/dyspnea Rate (beats per minute): 99 Rhythm: normal sinus Findings: + RBBB; no ST elevation and no ectopy Blood Pressure Blood Pressure Findings: Elevated blood pressure Blood Pressure Disposition: further management by hospitalist MDM Narrative This is an 78-year-old male who presents to the ED with a chief complaint of chills and some weakness. The patient started having the symptoms just around 1130 today. He also had some vomiting. The patient has a history of aspiration and pneumonia. He also has a history of diabetes. He was brought here for evaluation. He had some mild shortness of breath. His oxygen saturations were found to be 89% on room air. The patient has an otherwise unremarkable exam with exception of some crackles in the right lung. He does appear to be somewhat weak. His white blood cell count is elevated. His magnesium is very low. The other blood tests were unremarkable. A chest x-ray reveals findings concerning for a pneumonia on the right. The patient was started on IV antibiotics. He was given IV Zosyn. The patient was also given a DuoNeb treatment and IV magnesium. He was also given IV Zofran and some IV fluids. I spoke with the hospitalist, who will see the patient for further inpatient evaluation and care. Impression & Plan Hypomagnesemia, Pneumonia Discharge Plan Visit Data Chief Complaint: Illness Stated Complaint: SOB,NAUSEA,CHILLS ED Provider: Umesh Farmer Discharge Problem: Hypomagnesemia, Pneumonia Patient Disposition: Being Evaluated by Hospitalist Forms Stand Alone Forms: [facility] Prescriptions Prescriptions: No Action atorvastatin 40 mg Tablet 40 mg PO HS RF: 0 ipratropium-albuterol 0.5 mg-3 mg(2.5 mg base)/3 mL Solution For Nebulization 1 neb INHALATION QPM RF: 0 metoprolol succinate 50 mg Tablet Extended Release 24 Hr 50 mg PO QAM RF: 0 aspirin 81 mg Tablet,Delayed Release (Dr/Ec) 81 mg PO QAM RF: 0 finasteride 5 mg Tablet 5 mg PO QAM RF: 0 budesonide-formoterol [Symbicort] 160-4.5 mcg/actuation Hfa Aerosol Inhaler 2 puff INHALATION BID RF: 0 albuterol sulfate [ProAir RespiClick] 90 mcg/actuation Aerosol Powdr Breath Activated 2 puff INHALATION QID PRN (Reason: Shortness Of Breath) RF: 0 psyllium husk [Metamucil] 0.4 gram Capsule 0.8 g PO HS PRN (Reason: Congestion) RF: 0 omeprazole 40 mg capsule,delayed release(DR/EC) 40 mg PO QAM Qty: 30 RF: 2 losartan 50 mg tablet 50 mg PO QAM RF: 0 hydrochlorothiazide 25 mg tablet 25 mg PO QAM RF: 0 fluticasone 50 mcg/actuation spray,suspension 1 spray Intranasal QAM RF: 0 fluticasone 50 mcg/actuation spray,suspension 2 spray Intranasal QPM RF: 0 amoxicillin-pot clavulanate 875-125 mg Tablet 1 tab PO BIDM Qty: 14 RF: 0 prednisone 20 mg Tablet 30 mg PO DAILY Qty: 3 RF: 0 guaifenesin [Mucinex] 600 mg Tablet Extended Release 12hr 1,200 mg PO Q12 Qty: 60 RF: 0 metformin 500 mg tablet 500 mg PO BID Qty: 60 RF: 0 blood sugar diagnostic [OneTouch Verio] strip .ROUTE .MEDSUPPLY Qty: 35 RF: 0 lancets [OneTouch UltraSoft Lancets] misc .ROUTE .MEDSUPPLY Qty: 50 RF: 0 calcium polycarbophil [FiberCon] 625 mg Tablet 1,250 mg PO QPM RF: 0 Referrals Referrals: Fiona Stafford MD [Primary Care Provider] - The scribe's documentation has been prepared under my direction and personally reviewed by me in its entirety. I confirm that the note above accurately reflects all work, treatment, procedures, and medical decision making performed by me.
[2018-09-16] MEDS ORDERED: MAGNESIUM SULFATE / D5W 1 GM/100 ML BAG IV STA (16:10)
--- NOTE | 2018-09-16 16:12 | History & Physical Report ---
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 He reports he had some left lower back pain that started 2 days ago and has been constant. He took some ibuprofen this morning and then went to anabaptism. After anabaptism he was out to a restaurant for lunch but did not have an appetite, started to have the chills. In the ER, he did have a small amount of yellow vomitus and spiked a fever to 39.2. He was found to have a right lower lobe pneumonia. Flu swab was negative. He denies headache or facial pain or pressure and no increased mucus drainage from the nose. In fact, his sinuses have felt better since he started doing a daily automated sinus saline rinse. He denies abdominal pain. In the ER, his pulse ox was 89% on room air and his magnesium was found to be severely low at 0.8. WBC count elevated at 18,000, and he was tachycardic. He will be admitted for sepsis and pneumonia with acute hypoxic respiratory failure. -Admit to telemetry given sepsis -Supplemental O2 to keep pulse ox greater than 90% -Treating pneumonia as below (2) Pneumonia: With right lower lobe pneumonia which appears similar radiographically to previous. He had bronchoscopy little over 1 month ago and cultures from that grew out Streptococcus pneumoniae and Haemophilus influenza A, as well as Mycobacterium gordonae, Aspergillus fumigatus, and Lorrie. He was treated with penicillins appropriately after discharge last time and was doing well. -Started on Zosyn in the ER, will add vancomycin and azithromycin for MRSA and atypical coverage given the sepsis -Consult pulmonary for further recommendations for treatment -Scheduled bronchodilators -Pulmonary toilet, incentive spirometry -Add Mucinex 1200 mg p.o. twice daily -Collect sputum culture if possible (3) Sepsis: With tachycardia, leukocytosis, fever, and pneumonia as source -Treating with IV fluids as above -Treating with antibiotics -Follow blood cultures -We will attempt to get sputum culture as above (4) COPD (chronic obstructive pulmonary disease): -Continue inhalers from home, bronchodilators (5) Hypertension: Stable, well controlled -Continue home losartan 100 mg once daily, metoprolol succinate 50 mg once daily -Permanently discontinuing HCTZ for hypomagnesemia as below (6) Hypomagnesemia: Profoundly low at 0.8 on admission, this occurred previously and was thought to be due to hydrochlorothiazide in the setting of dehydration -Would permanently discontinue hydrochlorothiazide -Replace with 3 g of IV magnesium -Follow magnesium levels in the morning (7) Hyperlipidemia: Continue statin (8) Chronic sinusitis: Has known chronic sinusitis on CT with bilateral obstruction of ostiomeatal complexes He was supposed to see ENT as an outpatient since last admission and did not-he was awaiting a call from them -Would ensure proper outpatient follow-up of ENT after discharge -He has been doing daily sinus saline rinses -No clinical evidence of acute sinusitis on exam or by symptoms (9) Diabetes mellitus: -Hold metformin from home Hemoglobin A1c was 7.9% in 07/2018 -Sliding scale insulin ordered and Accu-Cheks q. before meals at bedtime (10) Chronic combined systolic (congestive) and diastolic (congestive) heart failure: No evidence of volume overload at this time, in fact he is dry due to sepsis -Gentle IV fluids but would likely stop in the morning -Most recent EF was 35% on echo from 01/2018 (11) Nonischemic cardiomyopathy: As above (12) Pulmonary nodule: Left pleural-based nodules previously seen -Should follow with pulmonology as an outpatient routinely (13) GERD (gastroesophageal reflux disease): -Continue PPI (14) BPH (benign prostatic hyperplasia): -Continue finasteride 5 mg daily (15) DVT prophylaxis: Lovenox SQ Disposition-admit to telemetry Full code History of Present Illness Chief Complaint: Chills, productive cough, nausea Primary Care Provider: Fiona Stafford MD This patient is a very pleasant 78-year-old male with a history of HTN, BPH, GERD, COPD with bronchiectasis, pulmonary nodule, nonischemic cardiomyopathy/ 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 He reports he had some left lower back pain that started 2 days ago and has been constant. He took some ibuprofen this morning and then went to anabaptism. After anabaptism he was out to a restaurant for lunch but did not have an appetite, started to have the chills. In the ER, he did have a small amount of yellow vomitus and spiked a fever to 39.2. He was found to have a right lower lobe pneumonia. Flu swab was negative. He denies headache or facial pain or pressure and no increased mucus drainage from the nose. In fact, his sinuses have felt better since he started doing a daily automated sinus saline rinse. He denies abdominal pain. In the ER, his pulse ox was 89% on room air and his magnesium was found to be severely low at 0.8. WBC count elevated at 18,000, and he was tachycardic. He will be admitted for sepsis and pneumonia with acute hypoxic respiratory failure. Allergies Allergy/AdvReac Type Severity Reaction Status Date / Time hydrocodone [From Vicodin] Allergy Severe Gastrointestinal Verified 09/16/18 15: 27 Upset levofloxacin Allergy Severe facial Verified 09/16/18 15:27 swelling oxycodone [From OxyContin] Allergy Severe Gastrointestinal Verified 09/16/18 15: 27 Upset Home Medications Home Medications Medication Instructions Recorded Confirmed Type albuterol sulfate [ProAir 2 puff INHALATION QID PRN 04/29/18 09/16/18 History RespiClick] aspirin 81 mg PO QAM 04/29/18 09/16/18 History atorvastatin 40 mg PO HS 04/29/18 09/16/18 History budesonide-formoterol [Symbicort] 1 puff INHALATION BID 04/29/18 09/16/18 History finasteride 5 mg PO QAM 04/29/18 09/16/18 History ipratropium-albuterol 1 neb INHALATION Q4H PRN 04/29/18 09/16/18 History metoprolol succinate 50 mg PO QAM 04/29/18 09/16/18 History omeprazole 40 mg PO QAM #30 cap 05/01/18 09/16/18 Rx calcium polycarbophil [FiberCon] 1,250 mg PO QPM 08/01/18 09/16/18 History fluticasone 2 spray INTRANASAL QPM 08/01/18 09/16/18 History hydrochlorothiazide 12.5 mg PO QAM 08/01/18 09/16/18 History metformin 500 mg PO BID #60 tab 08/04/18 09/16/18 Rx Lacto.acidophilus-Bif.animalis 1 cap PO DAILY 09/16/18 09/16/18 History [Probiotic] azelastine 2 spray INTRANASAL BID 09/16/18 09/16/18 History losartan 100 mg PO DAILY 09/16/18 09/16/18 History Past Med/Surg History Medical History Hyperlipidemia Chronic sinusitis Diabetes mellitus Chronic combined systolic (congestive) and diastolic (congestive) heart failure Nonischemic cardiomyopathy Pulmonary nodule GERD (gastroesophageal reflux disease) BPH (benign prostatic hyperplasia) Depression (Acute) COPD (chronic obstructive pulmonary disease) (Chronic) Hypertension (Chronic) Hypomagnesemia (Acute) Hypophosphatemia (Resolved) Bronchopneumonia Choledocholithiasis Right lower lobe pneumonia Sepsis UTI (lower urinary tract infection) Surgical History History of bronchoscopy History of cholecystectomy History of arthroscopy of shoulder History of total left hip arthroplasty Twice on the left hip History of total bilateral knee replacement (TKR) Twice each knee H/O colonoscopy (Acute) S/P hernia repair S/P hip replacement S/P knee replacement Status post laparoscopic cholecystectomy Family History Other Family history non-contributory Social History marital status: Current Living Situation: Spouse current occupational status: retired Other Information That Helps Us Care for You: No Feels Safe at Home: Yes Safety Concerns: Feels Safe At This Time Smoking Status: Former smoker Tobacco Type: cigarettes Do You Dip or Chew Tobacco: No Smoking End Date: quit around age 19 Hx Alcohol Use: No Hx Substance Use: No Beliefs That Will Affect Care: Protestant Protestant Beliefs: [facility] and [employer] Preferred Language: Kenyan Communication Ability: Effective Review of Systems All systems reviewed & are unremarkable except as noted in HPI & below Physical Exam 2 Vital Signs (Past 24 Hours): Last Vital Signs Temp 39.3 C H 09/16/18 15:51 Pulse 98 H 09/16/18 15:51 Resp 24 09/16/18 15:51 BP 177/94 H 09/16/18 13:31 Pulse Ox 92 09/16/18 15:51 Constitutional: WD/WN, vitals as above + ill appearing Eyes: PERRL, conjunctivae normal, anicteric sclerae ENMT: external ear and nose normal, oropharynx normal (No tenderness to palpation over maxillary or frontal bones) Ears: no EAC abnormality and no TM abnormality Nose: no external nose abnormality, no turbinate abnormality, no nasal mucous membrane abnormality, no nasal discharge and no sinus tenderness Neck: trachea midline, no thyromegaly Respiratory: normal respiratory effort; no labored breathing Auscultation: + crackles (At the right middle and lower lung muniz); no rhonchi and no wheezes Cardiovascular: RRR, no murmur, no edema Gastrointestinal (Abdomen): normal bowel sounds, soft, nontender, no hepatosplenomegaly Musculoskeletal: Extremities: extremities normal to inspection; no cyanosis and no clubbing Skin: no rashes, warm and dry Neurologic: moves all extremities and awake; no focal motor deficits Psychiatric: A+Ox3, euthymic affect Lymphatic: no preauricular lymphadenopathy and no cervical lymphadenopathy Results & Data Laboratory Results 09/16/18 09/16/18 09/16/18 Range/Units 18:52 14:30 13:45 WBC (4.8-10.8) K/uL RBC (4.7-6.1) M/uL Hgb (14.0-18.0) g/dL Hct (42-52) % MCV (80-100) fL MCH (25-34) pg MCHC (32-36) g/dL RDW Std Deviation (36.4-46.3) fL RDW Coeff of Vasquez (11.5-14.5) % Plt Count (130-400) K/uL MPV (7.4-10.4) fL Immature Gran % (Auto) % Neut % (Auto) % Lymph % (Auto) % Hughes % (Auto) % Eos % (Auto) % Baso % (Auto) % Immature Gran # (Auto) (0.00-0.02) K/uL Neut # (Auto) (1.4-6.5) K/uL Lymph # (Auto) (1.2-3.4) K/uL Hughes # (Auto) (0.11-0.59) K/uL Eos # (Auto) (0-0.5) K/uL Baso # (Auto) (0-0.2) K/uL Sodium (136-145) mmol/L Potassium (3.5-5.1) mmol/L Chloride (98-107) mmol/L Carbon Dioxide (21-32) mmol/L Anion Gap (3-11) BUN (7-18) mg/dl Creatinine (0.6-1.4) mg/dl Est Cr Clr Drug Dosing ml/min Est GFR ( Amer) Est GFR (Non-Af Amer) BUN/Creatinine Ratio (10-20) Glucose (70-99) mg/dl POC Glucose 162 H (70-99) Calcium (8.5-10.1) mg/dl Magnesium (1.8-2.4) mg/dl Total Bilirubin (0.2-1) mg/dl AST (15-37) U/L ALT (12-78) U/L Alkaline Phosphatase (45-117) U/L Total Protein (6.4-8.2) gm/dl Albumin (3.4-5.0) gm/dl Globulin (2.5-4.0) gm/dl Albumin/Globulin Ratio (0.9-2) Urine Color Yellow Urine Appearance Clear (Clear) Urine pH 5.0 (4.5-7.5) Ur Specific Waldo 1.018 (1.000-1.030) Urine Protein Negative (Negative) Urine Glucose (UA) Negative (Negative) Urine Ketones Trace H (Negative) Urine Blood Negative (Negative) Urine Nitrite Negative (Negative) Urine Bilirubin Negative (Negative) Urine Urobilinogen Negative (Negative) Ur Leukocyte Esterase Negative (Negative) Influenza Type A Ag Neg for Influ A (Neg) Influenza Type B Ag Neg for Influ B (Neg) 09/16/18 09/16/18 Range/Units 13:45 13:45 WBC 18.62 H (4.8-10.8) K/uL RBC 4.55 L (4.7-6.1) M/uL Hgb 15.2 (14.0-18.0) g/dL Hct 45.1 (42-52) % MCV 99.1 (80-100) fL MCH 33.4 (25-34) pg MCHC 33.7 (32-36) g/dL RDW Std Deviation 46.8 H (36.4-46.3) fL RDW Coeff of Vasquez 12.9 (11.5-14.5) % Plt Count 332 (130-400) K/uL MPV 10.0 (7.4-10.4) fL Immature Gran % (Auto) 0.3 % Neut % (Auto) 90.8 % Lymph % (Auto) 4.2 % Hughes % (Auto) 4.4 % Eos % (Auto) 0.1 % Baso % (Auto) 0.2 % Immature Gran # (Auto) 0.06 H (0.00-0.02) K/uL Neut # (Auto) 16.92 H (1.4-6.5) K/uL Lymph # (Auto) 0.78 L (1.2-3.4) K/uL Hughes # (Auto) 0.81 H (0.11-0.59) K/uL Eos # (Auto) 0.02 (0-0.5) K/uL Baso # (Auto) 0.03 (0-0.2) K/uL Sodium 141 (136-145) mmol/L Potassium 3.8 (3.5-5.1) mmol/L Chloride 104 (98-107) mmol/L Carbon Dioxide 28 (21-32) mmol/L Anion Gap 10.0 (3-11) BUN 24 H (7-18) mg/dl Creatinine 1.07 (0.6-1.4) mg/dl Est Cr Clr Drug Dosing 65.3 ml/min Est GFR ( Amer) 75.6 Est GFR (Non-Af Amer) 65.2 BUN/Creatinine Ratio 22.2 H (10-20) Glucose 144 H (70-99) mg/dl POC Glucose (70-99) Calcium 9.3 (8.5-10.1) mg/dl Magnesium 0.8 L* (1.8-2.4) mg/dl Total Bilirubin 1.0 (0.2-1) mg/dl AST 27 (15-37) U/L ALT 37 (12-78) U/L Alkaline Phosphatase 61 (45-117) U/L Total Protein 7.6 (6.4-8.2) gm/dl Albumin 3.8 (3.4-5.0) gm/dl Globulin 3.8 (2.5-4.0) gm/dl Albumin/Globulin Ratio 1.0 (0.9-2) Urine Color Urine Appearance (Clear) Urine pH (4.5-7.5) Ur Specific Waldo (1.000-1.030) Urine Protein (Negative) Urine Glucose (UA) (Negative) Urine Ketones (Negative) Urine Blood (Negative) Urine Nitrite (Negative) Urine Bilirubin (Negative) Urine Urobilinogen (Negative) Ur Leukocyte Esterase (Negative) Influenza Type A Ag (Neg) Influenza Type B Ag (Neg) Diagnostic Findings Chest x-ray reviewed personally and agree with the following report: XR chest 1V portable CLINICAL HISTORY: 78 years-old Male presenting with weakness. TECHNIQUE: Portable upright AP view of the chest was obtained. COMPARISON: 08/02/2018. FINDINGS: Atherosclerosis of the aortic arch. Cardiac silhouette normal in size. Minimal basilar opacities. No pleural effusion or pneumothorax. Degenerative changes of the thoracic spine. Degenerative changes of the glenohumeral joints. IMPRESSION: 1. Minimal basilar opacities likely atelectasis, scarring, or minimal aspiration. No convincing evidence of acute cardiopulmonary disease. ECG Additional Comments: ECG with normal sinus rhythm, rate 99, left axis deviation , incomplete right bundle branch block, QTC 464 Code Status & VTE Plan Code Status Full code VTE Prophylaxis Plan VTE Prophylaxis will be ordered: Yes _ (1) COPD (chronic obstructive pulmonary disease) COPD type: unspecified COPD Chronic bronchitis type: Emphysema type: Qualified Code(s): J44.9 - Chronic obstructive pulmonary disease, unspecified (2) Hypertension Hypertension type: essential hypertension Qualified Code(s): I10 - Essential (primary) hypertension
[2018-09-16] MEDS: FAMOTIDINE 20 MG in SYRINGE 3 ML IV SCH (16:45)
[2018-09-16] MEDS ORDERED: ACETAMINOPHEN 325 MG TAB PO STA (17:37)
[2018-09-16] MEDS ORDERED: ALBUT/IPRATROP 3MG/0.5MG NEB 3 ML VIAL INH PRN (19:00)
[2018-09-16] MEDS ORDERED: GLUCOSE 10 TABS/TUBE PO PRN (19:00)
[2018-09-16] MEDS ORDERED: ONDANSETRON INJ 2 MG/ML 2 ML VIAL IV PRN (19:00)
[2018-09-16] MEDS ORDERED: GLUCOSE 40% GEL 15 GM TUBE PO PRN (19:00)
[2018-09-16] MEDS ORDERED: GLUCAGON FOR INJ 1 MG VIAL SQ PRN (19:00)
[2018-09-16] MEDS ORDERED: POLYETHYLENE (MIRALAX) 17 GM PACK PO PRN (19:00)
[2018-09-16] MEDS ORDERED: DEXTROSE 50% 50 ML SYRINGE IV PRN (19:00)
[2018-09-16] MEDS ORDERED: CARBOHYDRATES FOR HYPOGLYCEMIA PO PRN (19:00)
[2018-09-16] MEDS ORDERED: PIPERACILLIN/TAZOBACTAM 3.375 GM in DEXTROSE 5% 100 ML IV SCH (19:00)
[2018-09-16] MEDS: ALBUT/IPRATROP 3MG/0.5MG NEB 3 ML VIAL NEB SCH (19:25)
[2018-09-16] MEDS: INSULIN ASPART 100 UNITS/ML 3 ML PEN SC SCH ×2 (20:17→20:25)
[2018-09-16] MEDS: BUDESONIDE/FORMOTEROL FUMARATE 160/4.5 60 PUFFS/INHALER INH SCH (20:17)
[2018-09-16] MEDS: ATORVASTATIN 40 MG TAB PO SCH (20:18)
[2018-09-16] MEDS: FLUTICASONE PROPIONATE NA SPR 16 GM BTL NAE SCH (20:18)
[2018-09-16] MEDS: CALCIUM POLYCARBOPHIL 1 TAB PO SCH (20:18)
[2018-09-16] MEDS: ENOXAPARIN INJ 40 MG/0.4 ML SYR SQ SCH (20:20)
[2018-09-16] MEDS: PIPERACILLIN/TAZOBACTAM 3.375 GM in DEXTROSE 5% 100 ML IV SCH (20:22)
[2018-09-16] MEDS: SODIUM CHLORIDE 0.9% 1000ML 1,000 ML IV SCH (20:23)
[2018-09-16] MEDS ORDERED: ACETAMINOPHEN 325 MG TAB PO PRN (22:00)
[2018-09-16] MEDS ORDERED: AZITHROMYCIN 500 MG/255 ML BAG IV ONE (23:34)
[2018-09-16] MEDS ORDERED: VANCOMYCIN CONSULT ACTIVE PRN (23:34)
[2018-09-16] MEDS ORDERED: VANCOMYCIN HCL 1,000 MG in SODIUM CHLORIDE 0.9% 250 ML IV SCH (23:45)
[2018-09-17] MEDS ORDERED: VANCOMYCIN HCL 2,000 MG in SODIUM CHLORIDE 0.9% 500 ML IV SCH
[2018-09-17] MEDS: MAGNESIUM SULFATE / D5W 1 GM/100 ML BAG IV SCH ×2 (00:08→01:26)
[2018-09-17] MEDS: PIPERACILLIN/TAZOBACTAM 3.375 GM in DEXTROSE 5% 100 ML IV SCH ×3 (04:38→21:14)
[2018-09-17] MEDS: FAMOTIDINE 20 MG in SYRINGE 3 ML IV SCH ×2 (04:39→16:02)
[2018-09-17 05:53] LABS: Estimated Average Glucose 166 mg/dl
[2018-09-17 05:56] LABS: Basophils # (auto) 0.05 K/uL (0-0.2); Basophils % (auto) 0.3 %; Eosinophils # (auto) 0.09 K/uL (0-0.5); Eosinophils % (auto) 0.5 %; Hematocrit (blood only) 37.5 % (42-52); Hemoglobin 12.1 g/dL (14.0-18.0); Immature Granulocytes # (auto) 0.06 K/uL (0.00-0.02); Immature Granulocytes % (auto) 0.3 %; Lymphocytes # (auto) 1.49 K/uL (1.2-3.4); Lymphocytes % (auto) 7.5 %; Mean Corpuscular Hgb Conc 32.3 g/dL (32-36); Mean Corpuscular Volume 99.2 fL (80-100); Mean Platelet Volume 9.8 fL (7.4-10.4); Monocytes # (auto) 1.64 K/uL (0.11-0.59); Monocytes % (auto) 8.3 %; Neutrophils # (auto) 16.45 K/uL (1.4-6.5); Neutrophils % (auto) 83.1 %; Platelet Count 265 K/uL (130-400); RDW Coefficient of Variation 13.2 % (11.5-14.5); RDW Standard Deviation 47.7 fL (36.4-46.3); Red Blood Count 3.78 M/uL (4.7-6.1); White Blood Count 19.78 K/uL (4.8-10.8)
[2018-09-17 06:20] LABS: BUN Creatinine Ratio 19.4 (10-20); Calcium 8.1 mg/dl (8.5-10.1); Est GFR (Non-African American) 71.6; Magnesium 1.9 mg/dl (1.8-2.4); Potassium 3.3 mmol/L (3.5-5.1)
[2018-09-17] MEDS: ALBUT/IPRATROP 3MG/0.5MG NEB 3 ML VIAL NEB SCH ×4 (07:05→19:03)
[2018-09-17] MEDS: METOPROLOL SUCC 50MG EXT REL TAB PO SCH (07:54)
[2018-09-17] MEDS: PANTOprazole 40 MG TAB PO SCH (07:54)
[2018-09-17] MEDS: ASPIRIN 81 MG ECTAB PO SCH (07:54)
[2018-09-17] MEDS: LOSARTAN POTASSIUM 50 MG TAB PO SCH (07:54)
[2018-09-17] MEDS: guaiFENesin 600 MG TABCR PO SCH ×2 (07:55→20:34)
[2018-09-17] MEDS: BUDESONIDE/FORMOTEROL FUMARATE 160/4.5 60 PUFFS/INHALER INH SCH ×2 (07:55→20:36)
[2018-09-17] MEDS: FINASTERIDE 5 MG TAB PO SCH (07:55)
[2018-09-17] MEDS: INSULIN ASPART 100 UNITS/ML 3 ML PEN SC SCH ×4 (07:56→20:28)
--- NOTE | 2018-09-17 09:07 | Pharmacy Report ---
Pharmacy Abx Initial Consult - Date of Service September 17, 2018 - Pharmacy Dosing Scope Date of Consult: 09/17/18 Consultation requested by: Dr. Goodman Pharmacy is consulted to initiate Vanc/zosyn IV dosing therapy, order appropriate labs and adjust drug dose/frequency. - Subjective The patient is a 78 year old M admitted on 09/16/18 16:10. - Objective Height: 5 ft 11 in Weight: 97.8 kg Vital Signs (Past 12hrs): Vital Signs Temp Pulse Pulse Pulse Resp BP Pulse Ox 09/17/18 07:06 64 16 125/68 92 09/17/18 07:05 60 16 92 09/17/18 04:19 37 C 62 139/68 93 09/17/18 00:00 37.3 C 76 63 17 133/66 94 Lab Results (24hrs): Laboratory Tests (24 Hours) 09/17/18 09/17/18 09/17/18 05:24 05:24 05:24 WBC 19.78 H Neut # (Auto) 16.45 H Creatinine 0.99 Est Cr Clr Drug Dosing 71.0 Procalcitonin 4.67 H 09/16/18 09/16/18 13:45 13:45 WBC 18.62 H Neut # (Auto) 16.92 H Creatinine 1.07 Est Cr Clr Drug Dosing 65.3 Procalcitonin Micro Results: 09/17/18 08:15 Gram Stain - Pending Sputum, Expectorated Sputum Culture - Pending 09/16/18 13:45 Blood Culture - Pending Blood - Risk Factors for Resistance * Hospitalization for 48 hours or more within the past 90 days * Antimicrobial use within the last 90 days: brinch cx ~1 month ago growing Streptococcus pneumoniae and Haemophilus influenza A, as well as Mycobacterium gordonae, Aspergillus fumigatus, and Lorrie- treated with pcns - Assessment & Plan Assessment 78 year old M presenting with symptoms concerning for pneumonia. Patient had bronchoscopy ~1 month ago and cultures from that grew out Streptococcus pneumoniae and Haemophilus influenza A, as well as Mycobacterium gordonae, Aspergillus fumigatus, and Lorrie. MRSA nasal swab negative but due to recent admission and inc WBC, continue for now per provider. Plan vanc/zosyn for treatment of PNA. Vancomycin IV * Estimated PK Parameters: Vd 0.7 L/kg, Luke 0.054 hr-1, t1/2 12.8 hr * Loading dose: 2000 mg (already given) * Maintenance dose: 1250 mg IV (13 mg/kg) every 14 hours starting @ 1400 today * Goal trough level for pna : 15 to 20 mcg/mL * Trough/Random level ordered for 09/18/18 @1730 Piperacillin/tazobactam * 3.375 g bolus administered over 30 minutes, then 3.375 g IV extended infusion every 8 hours for CrCl greater than 20 mL/min Pharmacy will continue to follow and will adjust dose/frequency as necessary. Thank you.
[2018-09-17] MEDS: SODIUM CHLORIDE 0.9% 1000ML 1,000 ML IV SCH (09:10)
[2018-09-17] MEDS ORDERED: MAGNESIUM SULFATE / D5W 1 GM/100 ML BAG IV ONE (09:17)
[2018-09-17] MEDS ORDERED: POTASSIUM CHLORIDE 20 MEQ TABCR PO STA (09:17)
[2018-09-17] MEDS: VANCOMYCIN HCL 1,250 MG in SODIUM CHLORIDE 0.9% 250 ML IV SCH (14:17)
--- NOTE | 2018-09-17 15:47 | Hospitalist Progress Note ---
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 He reports he had some left lower back pain that started 2 days ago and has been constant. He took some ibuprofen this morning and then went to [employer]. After [employer] he was out to a restaurant for lunch but did not have an appetite, started to have the chills. In the ER, he did have a small amount of yellow vomitus and spiked a fever to 39.2. He was found to have a right lower lobe pneumonia. Flu swab was negative. He denies headache or facial pain or pressure and no increased mucus drainage from the nose. In fact, his sinuses have felt better since he started doing a daily automated sinus saline rinse. He denies abdominal pain. In the ER, his pulse ox was 89% on room air and his magnesium was found to be severely low at 0.8. WBC count elevated at 18,000, and he was tachycardic. He will be admitted for sepsis and pneumonia with acute hypoxic respiratory failure. Much improved today, now afebrile, weaned off O2, more energetic, no further nausea -Treating pneumonia as below (2) Pneumonia: With right lower lobe pneumonia which appears similar radiographically to previous. He had bronchoscopy little over 1 month ago and cultures from that grew out Streptococcus pneumoniae and Haemophilus influenza A, as well as Mycobacterium gordonae, Aspergillus fumigatus, and Lorrie. He was treated with penicillins appropriately after discharge last time and was doing well. Procalcitonin elevated here at 4.67 -continue Zosyn, Vanco, and azithromycin for gram negative PNA, MRSA and atypical coverage given the sepsis -Consult pulmonary for further recommendations for treatment-awaiting consult-- > changed to Dr. Rose's name today as Dr. Espinoza now gone -Scheduled bronchodilators -Pulmonary toilet, incentive spirometry -continue Mucinex 1200 mg p.o. twice daily -Collect sputum culture if possible (3) Sepsis: With tachycardia, leukocytosis, fever, and pneumonia as source. Resolving BCxs NGTD Procal elevated at 4.67--> follow in AM WBC count remains elevated at 19k -can dc IVFs -Treating with antibiotics as above -Follow blood cultures -We will attempt to get sputum culture as above -follow CBC (4) COPD (chronic obstructive pulmonary disease): -Continue inhalers from home, bronchodilators (5) Hypertension: Stable, well controlled -Continue home losartan 100 mg once daily, metoprolol succinate 50 mg once daily -Permanently discontinuing HCTZ for hypomagnesemia as below (6) Hypomagnesemia: Profoundly low at 0.8 on admission, this occurred previously and was thought to be due to hydrochlorothiazide in the setting of dehydration -Would permanently discontinue hydrochlorothiazide -Replaced with 3 g of IV magnesium Magnesium today 1.9 -give another 1 gram of IV Mag -Follow magnesium levels in the morning (7) Hyperlipidemia: Continue statin (8) Chronic sinusitis: Has known chronic sinusitis on CT with bilateral obstruction of ostiomeatal complexes He was supposed to see ENT as an outpatient since last admission and did not-he was awaiting a call from them -Would ensure proper outpatient follow-up of ENT after discharge -He has been doing daily sinus saline rinses -No clinical evidence of acute sinusitis on exam or by symptoms -continue Azelastine and FLonase nasal sprays (9) Diabetes mellitus: -Hold metformin from home Hemoglobin A1c is 7.4% -Sliding scale insulin ordered and Accu-Cheks q. before meals at bedtime (10) Chronic combined systolic (congestive) and diastolic (congestive) heart failure: No evidence of volume overload at this time, in fact he was dry due to sepsis, now euvolemic -dc IVFs today -Most recent EF was 35% on echo from 01/2018 (11) Nonischemic cardiomyopathy: As above (12) Pulmonary nodule: Left pleural-based nodules previously seen -Should follow with pulmonology as an outpatient routinely (13) GERD (gastroesophageal reflux disease): -Continue PPI (14) BPH (benign prostatic hyperplasia): -Continue finasteride 5 mg daily (15) Hypokalemia: K+ 3.3 today secondary to poor po intake -replaced with KCl 40 meq po x 1 -follow BMP in AM (16) DVT prophylaxis: Lovenox SQ Disposition-ok to transfer to medical floor off tele If BCxs remain negative and he is doing well tomorrow, can dc to home later in the day Full code Subjective Pt feeling remarkably better today. He is afebrile today, no further chills, no headache, no more nausea and would like regular food. Still with productive cough but improved, no SOB, no CP, is weaned off O2. No abd pain, no diarrhea. Tele with NSR, PACs, PVCs, rates 50s-80s Review of Systems All systems reviewed & are unremarkable except as noted in HPI & below Physical Exam 2 Vital Signs (Past 24 Hours): Last Vital Signs Temp 36.5 C 09/17/18 15:14 Pulse 67 09/17/18 15:14 Resp 20 09/17/18 15:14 BP 143/85 H 09/17/18 15:14 Pulse Ox 100 09/17/18 15:14 Constitutional: WD/WN, vitals as above + well hydrated; no acute distress and no altered mental status Eyes: PERRL, conjunctivae normal, anicteric sclerae ENMT: external ear and nose normal, oropharynx normal (No tenderness to palpation over maxillary or frontal bones) Neck: trachea midline, no thyromegaly Respiratory: normal respiratory effort; no labored breathing Auscultation: + crackles (At the right middle and lower lung muniz); no rhonchi and no wheezes Cardiovascular: RRR, no murmur, no edema Gastrointestinal (Abdomen): normal bowel sounds, soft, nontender, no hepatosplenomegaly Musculoskeletal: Extremities: extremities normal to inspection; no cyanosis and no clubbing Skin: no rashes, warm and dry Neurologic: moves all extremities and awake; no focal motor deficits Psychiatric: A+Ox3, euthymic affect Results & Data Laboratory Results 09/17/18 09/17/18 09/17/18 Range/Units 20:16 15:57 11:27 WBC (4.8-10.8) K/uL RBC (4.7-6.1) M/uL Hgb (14.0-18.0) g/dL Hct (42-52) % MCV (80-100) fL MCH (25-34) pg MCHC (32-36) g/dL RDW Std Deviation (36.4-46.3) fL RDW Coeff of Vasquez (11.5-14.5) % Plt Count (130-400) K/uL MPV (7.4-10.4) fL Immature Gran % (Auto) % Neut % (Auto) % Lymph % (Auto) % [place] % (Auto) % Eos % (Auto) % Baso % (Auto) % Immature Gran # (Auto) (0.00-0.02) K/uL Neut # (Auto) (1.4-6.5) K/uL Lymph # (Auto) (1.2-3.4) K/uL [place] # (Auto) (0.11-0.59) K/uL Eos # (Auto) (0-0.5) K/uL Baso # (Auto) (0-0.2) K/uL Sodium (136-145) mmol/L Potassium (3.5-5.1) mmol/L Chloride (98-107) mmol/L Carbon Dioxide (21-32) mmol/L Anion Gap (3-11) BUN (7-18) mg/dl Creatinine (0.6-1.4) mg/dl Est Cr Clr Drug Dosing ml/min Est GFR ( Amer) Est GFR (Non-Af Amer) BUN/Creatinine Ratio (10-20) Glucose (70-99) mg/dl POC Glucose 143 H 138 H 130 H (70-99) Estimat Average Glucose mg/dl Hemoglobin A1c (4.5-5.6) % Calcium (8.5-10.1) mg/dl Magnesium (1.8-2.4) mg/dl Procalcitonin (0-0.5) ng/ml 09/17/18 09/17/18 09/17/18 Range/Units 07:26 05:24 05:24 WBC (4.8-10.8) K/uL RBC (4.7-6.1) M/uL Hgb (14.0-18.0) g/dL Hct (42-52) % MCV (80-100) fL MCH (25-34) pg MCHC (32-36) g/dL RDW Std Deviation (36.4-46.3) fL RDW Coeff of Vasquez (11.5-14.5) % Plt Count (130-400) K/uL MPV (7.4-10.4) fL Immature Gran % (Auto) % Neut % (Auto) % Lymph % (Auto) % [place] % (Auto) % Eos % (Auto) % Baso % (Auto) % Immature Gran # (Auto) (0.00-0.02) K/uL Neut # (Auto) (1.4-6.5) K/uL Lymph # (Auto) (1.2-3.4) K/uL [place] # (Auto) (0.11-0.59) K/uL Eos # (Auto) (0-0.5) K/uL Baso # (Auto) (0-0.2) K/uL Sodium (136-145) mmol/L Potassium (3.5-5.1) mmol/L Chloride (98-107) mmol/L Carbon Dioxide (21-32) mmol/L Anion Gap (3-11) BUN (7-18) mg/dl Creatinine (0.6-1.4) mg/dl Est Cr Clr Drug Dosing ml/min Est GFR ( Amer) Est GFR (Non-Af Amer) BUN/Creatinine Ratio (10-20) Glucose (70-99) mg/dl POC Glucose 123 H (70-99) Estimat Average Glucose 166 mg/dl Hemoglobin A1c 7.4 H (4.5-5.6) % Calcium (8.5-10.1) mg/dl Magnesium (1.8-2.4) mg/dl Procalcitonin 4.67 H (0-0.5) ng/ml 09/17/18 09/17/18 Range/Units 05:24 05:24 WBC 19.78 H (4.8-10.8) K/uL RBC 3.78 L (4.7-6.1) M/uL Hgb 12.1 L D (14.0-18.0) g/dL Hct 37.5 L (42-52) % MCV 99.2 (80-100) fL MCH 32.0 (25-34) pg MCHC 32.3 (32-36) g/dL RDW Std Deviation 47.7 H (36.4-46.3) fL RDW Coeff of Vasquez 13.2 (11.5-14.5) % Plt Count 265 (130-400) K/uL MPV 9.8 (7.4-10.4) fL Immature Gran % (Auto) 0.3 % Neut % (Auto) 83.1 % Lymph % (Auto) 7.5 % [place] % (Auto) 8.3 % Eos % (Auto) 0.5 % Baso % (Auto) 0.3 % Immature Gran # (Auto) 0.06 H (0.00-0.02) K/uL Neut # (Auto) 16.45 H (1.4-6.5) K/uL Lymph # (Auto) 1.49 (1.2-3.4) K/uL [place] # (Auto) 1.64 H (0.11-0.59) K/uL Eos # (Auto) 0.09 (0-0.5) K/uL Baso # (Auto) 0.05 (0-0.2) K/uL Sodium 140 (136-145) mmol/L Potassium 3.3 L (3.5-5.1) mmol/L Chloride 105 (98-107) mmol/L Carbon Dioxide 29 (21-32) mmol/L Anion Gap 7.0 (3-11) BUN 19 H (7-18) mg/dl Creatinine 0.99 (0.6-1.4) mg/dl Est Cr Clr Drug Dosing 71.0 ml/min Est GFR ( Amer) 83.0 Est GFR (Non-Af Amer) 71.6 BUN/Creatinine Ratio 19.4 (10-20) Glucose 118 H (70-99) mg/dl POC Glucose (70-99) Estimat Average Glucose mg/dl Hemoglobin A1c (4.5-5.6) % Calcium 8.1 L (8.5-10.1) mg/dl Magnesium 1.9 (1.8-2.4) mg/dl Procalcitonin (0-0.5) ng/ml BCxs NGTD _ (1) BPH (benign prostatic hyperplasia) Lower urinary tract symptom presence: symptoms absent Qualified Code(s): N40.0 - Benign prostatic hyperplasia without lower urinary tract symptoms (2) Diabetes mellitus Diabetes mellitus type: type 2 Diabetes mellitus midlevel provider insulin use: without midlevel provider use Diabetes mellitus complication status: without complication Qualified Code(s): E11.9 - Type 2 diabetes mellitus without complications (3) Hyperlipidemia Hyperlipidemia type: unspecified Qualified Code(s): E78.5 - Hyperlipidemia, unspecified (4) Sepsis Sepsis type: sepsis due to unspecified organism Qualified Code(s): A41.9 - Sepsis, unspecified organism (5) COPD (chronic obstructive pulmonary disease) COPD type: unspecified COPD Chronic bronchitis type: Emphysema type: Qualified Code(s): J44.9 - Chronic obstructive pulmonary disease, unspecified (6) GERD (gastroesophageal reflux disease) Esophagitis presence: esophagitis presence not specified Qualified Code(s): K21.9 - Gastro-esophageal reflux disease without esophagitis (7) Hypertension Hypertension type: essential hypertension Qualified Code(s): I10 - Essential (primary) hypertension (8) Pneumonia Pneumonia type: due to unspecified organism Laterality: right Lung location : lower lobe of lung Qualified Code(s): J18.1 - Lobar pneumonia, unspecified organism (9) Chronic sinusitis Sinusitis location: unspecified location Qualified Code(s): J32.9 - Chronic sinusitis, unspecified
[2018-09-17] MEDS: ENOXAPARIN INJ 40 MG/0.4 ML SYR SQ SCH (20:33)
[2018-09-17] MEDS: CALCIUM POLYCARBOPHIL 1 TAB PO SCH (20:34)
[2018-09-17] MEDS: ATORVASTATIN 40 MG TAB PO SCH (20:35)
[2018-09-17] MEDS: FLUTICASONE PROPIONATE NA SPR 16 GM BTL NAE SCH (20:36)
[2018-09-17] MEDS: AZITHROMYCIN 250 MG TAB PO SCH (20:36)
[2018-09-18] MEDS: PIPERACILLIN/TAZOBACTAM 3.375 GM in DEXTROSE 5% 100 ML IV SCH ×3 (04:15→20:28)
[2018-09-18] MEDS: VANCOMYCIN HCL 1,250 MG in SODIUM CHLORIDE 0.9% 250 ML IV SCH ×2 (04:15→18:08)
[2018-09-18 06:46] LABS: Basophils # (auto) 0.06 K/uL (0-0.2); Basophils % (auto) 0.6 %; Eosinophils # (auto) 0.21 K/uL (0-0.5); Hematocrit (blood only) 37.6 % (42-52); Hemoglobin 12.5 g/dL (14.0-18.0); Immature Granulocytes # (auto) 0.02 K/uL (0.00-0.02); Immature Granulocytes % (auto) 0.2 %; Lymphocytes # (auto) 1.51 K/uL (1.2-3.4); Lymphocytes % (auto) 14.7 %; Mean Corpuscular Hgb Conc 33.2 g/dL (32-36); Mean Corpuscular Volume 97.9 fL (80-100); Mean Platelet Volume 10.1 fL (7.4-10.4); Monocytes # (auto) 1.17 K/uL (0.11-0.59); Monocytes % (auto) 11.4 %; Neutrophils % (auto) 71.1 %; Platelet Count 276 K/uL (130-400); RDW Coefficient of Variation 12.9 % (11.5-14.5); RDW Standard Deviation 46.2 fL (36.4-46.3); Red Blood Count 3.84 M/uL (4.7-6.1); White Blood Count 10.27 K/uL (4.8-10.8)
[2018-09-18] MEDS: ALBUT/IPRATROP 3MG/0.5MG NEB 3 ML VIAL NEB SCH ×4 (07:07→18:56)
[2018-09-18 07:31] LABS: BUN Creatinine Ratio 13.8 (10-20); Calcium 8.5 mg/dl (8.5-10.1); Creatinine Clr Calc Pharmacy 80.7 ml/min; Est GFR (African American) 94.5; Est GFR (Non-African American) 81.5; Magnesium 1.8 mg/dl (1.8-2.4); Potassium 3.6 mmol/L (3.5-5.1)
[2018-09-18] MEDS: LOSARTAN POTASSIUM 50 MG TAB PO SCH (07:48)
[2018-09-18] MEDS: ASPIRIN 81 MG ECTAB PO SCH (07:48)
[2018-09-18] MEDS: guaiFENesin 600 MG TABCR PO SCH ×2 (07:48→20:32)
[2018-09-18] MEDS: BUDESONIDE/FORMOTEROL FUMARATE 160/4.5 60 PUFFS/INHALER INH SCH ×2 (07:49→20:32)
[2018-09-18] MEDS: METOPROLOL SUCC 50MG EXT REL TAB PO SCH (07:49)
[2018-09-18] MEDS: PANTOprazole 40 MG TAB PO SCH (07:49)
[2018-09-18] MEDS: FINASTERIDE 5 MG TAB PO SCH (07:49)
[2018-09-18] MEDS: INSULIN ASPART 100 UNITS/ML 3 ML PEN SC SCH ×4 (09:06→20:36)
[2018-09-18] MEDS: FLUTICASONE PROPIONATE NA SPR 16 GM BTL NAE SCH (09:06)
--- NOTE | 2018-09-18 14:32 | Consultation Report ---
DATE OF CONSULTATION: 09/18/2018 PULMONARY CONSULTATION TIME: 10:45 a.m. REPORT OF CONSULTATION: The patient was seen in room 410. He is an 78-year-old male with a history of COPD and bronchiectasis. He presented to the Emergency Room on 09/16/2018. He was having chills. He reportedly had a cough with some yellow sputum. He had some low back pain. On that morning, the patient went to [employer] and then went out to a restaurant, but did not have an appetite. The chills then started. He had a small amount of vomitus. Temperature went up to 39.2. He presented to the hospital with these complaints. Currently, he is feeling dramatically better. He denies any shortness of breath at all. He denies now having any cough or sputum. He denies chills, fevers or sweats. He has no pain. The patient indicates he really feels well. In July 2018, the patient had bronchoscopy done by Dr. Ferrell. The patient went home and then later in the day came back with not feeling well at all. The patient states that he was told that he had aspirated. He states he also has chronic sinus disease and is considering getting sinus surgery. He states he brought some type of sinus device from [employer] that cost $100 and it is a rinsing device. He feels that his sinuses have improved a lot using this. The patient is very active. He states he goes to the gym 2 days per week. He tells me that he can bench press 110 pounds 35 times, which would be extremely significant for his age of 78. He does take Symbicort at home and he has a rescue inhaler which he seldom needs. When he was hospitalized in July, he had a CAT scan showing fairly diffuse infiltrates and the possibility of aspiration was considered. He denies any dysphagia. The patient was found to have a severely decreased magnesium level on this admission and on the last admission. Apparently, it was thought that it might be secondary to hydrochlorothiazide. PAST SURGICAL HISTORY: 1. Left total hip replacement x2. 2. Right and left total knee replacements x2. 3. Inguinal hernia repair. 4. Cholecystectomy. PAST MEDICAL HISTORY: 1. Bronchiectasis. 2. COPD. 3. Aspiration pneumonia. 4. Sinusitis. 5. Lung nodules. 6. Nonischemic cardiomyopathy with EF 35%. 7. Hypertension. 8. Diabetes. 9. Hyperlipidemia. 10. BPH. SOCIAL HISTORY: Tobacco: The patient smoked only between ages 13 and 19. ETOH - occasional. FAMILY HISTORY: Positive for cardiac disease, Alzheimer's disease, hypertension, diabetes and breast cancer. 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 ALLERGIES: LISTED ALLERGIES TO LEVOFLOXACIN CAUSING ANGIOEDEMA, LISINOPRIL CAUSING ANGIOEDEMA, OXYCONTIN, SINEQUAN, AND TRANXENE. KEFLEX GAVE GI UPSETS, NOT TRUE ALLERGY. REVIEW OF SYSTEMS: In addition to the complaints noted in the history of present illness, the patient denies visual complaints, but he states he may be getting cataract surgery this summer. He has increased amounts of nasal mucus and postnasal drip. He denies heartburn. He has occasional loose stools which may be medication related. Other systems were reviewed and were negative except as noted. Ten systems reviewed. PHYSICAL EXAMINATION: GENERAL: The patient is a pleasant 78-year-old male who was cooperative, alert and oriented. He was in no distress. The patient was very talkative. He looked well. VITAL SIGNS: Temperature is 36.9. The only significant fever was on the date of admission when he was 39.3. Cardiac rate was 60. Rhythm was regular. Blood pressure elevated mildly at 156/82. HEENT: Pupils were reactive. Cataract formation was noted. Nares were somewhat narrow. Mouth exam was unremarkable, specifically with no erythema or exudate. NECK: Palpation of the neck reveals no lymph nodes. LUNGS: Lung muniz revealed mild rhonchi, greater on the right than the left. This would be mid and lower lung muniz. Respiratory rate 18. Saturation 94% on room air. ABDOMEN: Soft. Good bowel sounds are present. There was no tenderness to palpation or masses. EXTREMITIES: Showed no cyanosis, clubbing or edema. LABORATORY DATA: Sputum culture is pending. The sputum Gram stain showed many polys, but few organisms. It should be noted that at the time of bronchoscopy on 08/01/2018, he cultured out Lorrie, Aspergillus, haemophilus influenza, strep pneumoniae, and Mycobacterium gordonae. White count on admission was 18.62. Today, white count is 10.27. Hemoglobin today 12.5. Platelets 276,000. Procalcitonin was 4.67 on the . Today, it is 2.74. Electrolytes show sodium 140, potassium 3.6, chloride 107, bicarb 26. BUN 12 with creatinine 0.87. Urinalysis was negative. Nasal screen is negative. Chest x-ray on admission by radiology report suggested minimal basilar opacities, likely atelectasis, scarring or minimal aspiration. My review, however, would suggest that he does still have an infiltrate in the right lower lobe. Whether this is residual from his prior infiltrate seen in July 2018 or if it is new, it is not entirely clear. EKG done on admission showed a sinus rhythm with a rate of 99. There is a left anterior hemiblock. IMPRESSION: 1. Right lower lobe infiltrate. 2. Chronic obstructive pulmonary disease. 3. Bronchiectasis. 4. Hypomagnesemia. COMMENTS: The patient clinically seems well. Most of his symptoms have resolved. He has been afebrile. Currently, he denies any cough or sputum. The patient appears to be acceptable for discharge. I think it would be reasonable to discharge him with Augmentin. He should continue with his inhalers that he uses at home chronically. RECOMMENDATIONS: The patient believes that he is scheduled for outpatient pulmonary function test in the next week or so. He is scheduled for followup CAT scan in October and then a subsequent followup appointment with Dr. Ferrell. As of now, he seems to be stable. Thank you for asking me to assist in his care.
[2018-09-18] MEDS ORDERED: VANCOMYCIN TROUGH ONE (17:30)
[2018-09-18] MEDS: ENOXAPARIN INJ 40 MG/0.4 ML SYR SQ SCH (20:28)
[2018-09-18] MEDS: CALCIUM POLYCARBOPHIL 1 TAB PO SCH (20:31)
[2018-09-18] MEDS: ATORVASTATIN 40 MG TAB PO SCH (20:31)
[2018-09-18] MEDS: AZITHROMYCIN 250 MG TAB PO SCH (20:37)
--- NOTE | 2018-09-18 20:40 | Hospitalist Progress Note ---
Date of Service September 18, 2018 Assessment & Plan (1) Pneumonia: in the setting of COPD & bronchiectasis - improved. remains on IV antibiotics - broad-spectrum to cover gram negatives and anaerobes. also on z-pack for atypical coverage. MRSA screen negative - can likely d/c the vanco. clinically improved. follow cultures. consider transitioning to PO abx tomorrow. appreciate Dr. Rose's consultation. defer on steroids for now. (2) Chronic combined systolic (congestive) and diastolic (congestive) heart failure: compensated cont BB and ARB (3) DM w/o complication type II: controlled (4) Sepsis: resolved (5) Bronchiectasis: continue expectorants, incentive spirometry, inhalers, nebs, etc. follows with Dr. Ferrell and needs periodic bronchs; defer on such during this stay given his improvement w/ current care plan (6) Hypomagnesemia: resolved was thought 2nd to HCTZ usage which has been resolved (7) DVT prophylaxis: lovenox daily d/c home tomorrow? Subjective patient states "I feel great" he is back to baseline, walking the hallways, eating well diligent about using incentive spirometry asks if he can "go home tonight" mild cough but sputum production has slowed Constitutional: no fever and no chills Respiratory: + cough; no dyspnea on exertion, no hemoptysis and no wheezing Cardiovascular: no chest pain Gastrointestinal: no abdominal pain and no diarrhea/loose stools Physical Exam 2 Vital Signs (Past 24 Hours): Last Vital Signs Temp 36.5 C 09/18/18 15:35 Pulse 60 09/18/18 18:58 Resp 16 09/18/18 18:58 BP 155/76 H 09/18/18 15:35 Pulse Ox 92 09/18/18 18:58 Constitutional: well developed and well nourished; no acute distress looks younger than stated age ENMT: Ears: no external ear abnormality Mouth: + oropharynx abnormality ( mild cobblestoning/mucous on posterior pharyngeal wall ) Respiratory: normal respiratory effort; no respiratory distress Auscultation: + crackles (bases) and + rhonchi (scattered - bases, especially the right base ) Cardiovascular: Rate/Rhythm: regular rate and regular rhythm Heart Sounds: normal S1 and normal S2; no murmur Vessels: posterior tibial pulses present and dorsalis pedis pulses present; no JVD Extremities: no edema Gastrointestinal (Abdomen): normal bowel sounds, soft, nontender, no hepatosplenomegaly Psychiatric: A+Ox3, euthymic affect Results & Data Laboratory Results Laboratory Results - last 24 hr 09/18/18 09/18/18 09/18/18 06:16 06:16 06:16 WBC 10.27 RBC 3.84 L Hgb 12.5 L Hct 37.6 L MCV 97.9 MCH 32.6 MCHC 33.2 RDW Std Deviation 46.2 RDW Coeff of Vasquez 12.9 Plt Count 276 MPV 10.1 Immature Gran % (Auto) 0.2 Neut % (Auto) 71.1 Lymph % (Auto) 14.7 [place] % (Auto) 11.4 Eos % (Auto) 2.0 Baso % (Auto) 0.6 Immature Gran # (Auto) 0.02 Neut # (Auto) 7.30 H Lymph # (Auto) 1.51 [place] # (Auto) 1.17 H Eos # (Auto) 0.21 Baso # (Auto) 0.06 Sodium 140 Potassium 3.6 Chloride 107 Carbon Dioxide 26 Anion Gap 7.0 BUN 12 Creatinine 0.87 Est Cr Clr Drug Dosing 80.7 Est GFR ( Amer) 94.5 Est GFR (Non-Af Amer) 81.5 BUN/Creatinine Ratio 13.8 Glucose 139 H POC Glucose Calcium 8.5 Magnesium 1.8 Procalcitonin 2.74 H Vancomycin Trough 09/18/18 09/18/18 09/18/18 07:49 11:37 16:40 WBC RBC Hgb Hct MCV MCH MCHC RDW Std Deviation RDW Coeff of Vasquez Plt Count MPV Immature Gran % (Auto) Neut % (Auto) Lymph % (Auto) [place] % (Auto) Eos % (Auto) Baso % (Auto) Immature Gran # (Auto) Neut # (Auto) Lymph # (Auto) [place] # (Auto) Eos # (Auto) Baso # (Auto) Sodium Potassium Chloride Carbon Dioxide Anion Gap BUN Creatinine Est Cr Clr Drug Dosing Est GFR ( Amer) Est GFR (Non-Af Amer) BUN/Creatinine Ratio Glucose POC Glucose 142 H 127 H 157 H Calcium Magnesium Procalcitonin Vancomycin Trough 09/18/18 09/18/18 17:34 19:47 WBC RBC Hgb Hct MCV MCH MCHC RDW Std Deviation RDW Coeff of Vasquez Plt Count MPV Immature Gran % (Auto) Neut % (Auto) Lymph % (Auto) [place] % (Auto) Eos % (Auto) Baso % (Auto) Immature Gran # (Auto) Neut # (Auto) Lymph # (Auto) [place] # (Auto) Eos # (Auto) Baso # (Auto) Sodium Potassium Chloride Carbon Dioxide Anion Gap BUN Creatinine Est Cr Clr Drug Dosing Est GFR ( Amer) Est GFR (Non-Af Amer) BUN/Creatinine Ratio Glucose POC Glucose 157 H Calcium Magnesium Procalcitonin Vancomycin Trough 8.6 _ (1) Pneumonia Pneumonia type: due to unspecified organism Aspiration pneumonia type: Laterality: right Lung location: lower lobe of lung Qualified Code(s): J18.1 - Lobar pneumonia, unspecified organism (2) DM w/o complication type II Diabetes mellitus dedicated 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
[2018-09-19] MEDS ORDERED: VANCOMYCIN HCL 1,250 MG in SODIUM CHLORIDE 0.9% 250 ML IV SCH (02:00)
[2018-09-19] MEDS: PIPERACILLIN/TAZOBACTAM 3.375 GM in DEXTROSE 5% 100 ML IV SCH ×2 (04:11→12:56)
[2018-09-19 06:56] LABS: Creatinine Clr Calc Pharmacy 73.2 ml/min; Est GFR (African American) 86.2; Est GFR (Non-African American) 74.4
[2018-09-19] MEDS: ALBUT/IPRATROP 3MG/0.5MG NEB 3 ML VIAL NEB SCH (07:10)
[2018-09-19] MEDS: LOSARTAN POTASSIUM 50 MG TAB PO SCH (08:30)
[2018-09-19] MEDS: guaiFENesin 600 MG TABCR PO SCH (08:30)
[2018-09-19] MEDS: FINASTERIDE 5 MG TAB PO SCH (08:30)
[2018-09-19] MEDS: PANTOprazole 40 MG TAB PO SCH (08:30)
[2018-09-19] MEDS: BUDESONIDE/FORMOTEROL FUMARATE 160/4.5 60 PUFFS/INHALER INH SCH (08:30)
[2018-09-19] MEDS: ASPIRIN 81 MG ECTAB PO SCH (08:30)
[2018-09-19] MEDS: INSULIN ASPART 100 UNITS/ML 3 ML PEN SC SCH (08:31)
[2018-09-19] MEDS: METOPROLOL SUCC 50MG EXT REL TAB PO SCH (08:31)
--- NOTE | 2018-09-19 12:44 | Progress Note ---
DATE: 09/19/2018 PULMONARY PROGRESS NOTE TIME: 12:25 p.m. SUBJECTIVE: The patient denies complaints. He states he feels great. He denies significant shortness of breath or cough. However, he is quite anxious for discharge and I am not sure if he would entirely tell us the complete history. His was present during this evaluation. She indicated that he sees dramatically better than he was when he came in. PHYSICAL EXAMINATION: GENERAL: The patient is comfortable. He was cooperative, alert and oriented. VITAL SIGNS: Cardiac rate is 77 per minute. Rhythm is regular. Blood pressure is elevated at 179/83. Respiratory rate is 20. LUNGS: Auscultation of the lung muniz revealed mild expiratory wheezing. Oxygen saturation on room air is 96%. He was ambulated in the hallway and did not desaturate to any degree. The patient has not had a fever of significance since 09/16/2018. EXTREMITIES: Showed no cyanosis, clubbing or edema. LABORATORY DATA: White count today is down to 10.27. It was 18.62 on admission. Hemoglobin 12.5. Platelets 276,000. Blood sugar max today was ____. Blood cultures were negative. Sputum culture reported light normal meliton. IMPRESSION: 1. Right lower lobe infiltrate. 2. Chronic obstructive pulmonary disease. 3. Bronchiectasis. COMMENTS AND RECOMMENDATIONS: The patient is doing well. I have no objection to discharge. I discussed the case with Dr. Saldaña. He will go home with Augmentin and azithromycin. The patient because he is still wheezing may benefit from a short course of oral prednisone. It would be recommended that he follow up in the pulmonary office in 1-2 weeks. He will need a followup chest x-ray to assure clearance.
[2018-09-19] MEDS ORDERED: IPRATROPIUM BROMIDE/ALBUTEROL respimat INH INH SCH (13:00)
[2018-09-20] MEDS ORDERED: VANCOMYCIN TROUGH ONE (01:30)
--- NOTE | 2018-09-27 21:00 | Discharge Summary ---
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 He reports he had some left lower back pain that started 2 days ago and has been constant. He took some ibuprofen this morning and then went to lutheran. After lutheran he was out to a restaurant for lunch but did not have an appetite, started to have the chills. In the ER, he did have a small amount of yellow vomitus and spiked a fever to 39.2. He was found to have a right lower lobe pneumonia. Flu swab was negative. He denies headache or facial pain or pressure and no increased mucus drainage from the nose. In fact, his sinuses have felt better since he started doing a daily automated sinus saline rinse. He denies abdominal pain. In the ER, his pulse ox was 89% on room air and his magnesium was found to be severely low at 0.8. WBC count elevated at 18,000, and he was tachycardic. He will be admitted for sepsis and pneumonia with acute hypoxic respiratory failure. Principal Diagnosis RLL pneumonia - community-acquired vs gram negative etiology Discharge Exam Constitutional well developed and well nourished; no acute distress and not ill appearing ENMT external ear and nose normal, oropharynx normal Respiratory no respiratory distress Auscultation: + rales (RLL) and + wheezes (mild end-exp) Cardiovascular RRR, no murmur, no edema Heart Sounds: normal S1 and normal S2 Vessels: posterior tibial pulses present and dorsalis pedis pulses present; no JVD Gastrointestinal (Abdomen) normal bowel sounds, soft, nontender, no hepatosplenomegaly Psychiatric A+Ox3, euthymic affect Discharge Data Allergies Allergy/AdvReac Type Severity Reaction Status Date / Time hydrocodone [From Vicodin] Allergy Severe Gastrointestinal Verified 09/16/18 15: 27 Upset levofloxacin Allergy Severe facial Verified 09/16/18 15:27 swelling oxycodone [From OxyContin] Allergy Severe Gastrointestinal Verified 09/16/18 15: 27 Upset Consultations pulmonary - [facility] Course (1) RLL pneumonia: The patient was treated for RLL pneumonia with broad-spectrum IV antibiotics. Etiology of the pneumonia was either community-acquired or gram negative pathogen. He improved quickly with resolution of his leukocytosis. Blood and sputum cultures remained negative. Oxygen was quickly weaned off as well. He was seen in consult by pulmonary who provided bagley recommendations for his care. At time of discharge he will complete a course of augmentin twice daily. (2) Sepsis: The patient's sepsis was secondary to his RLL pneumonia. Again blood cultures were negative while hospitalized. Sputum culture was also negative. (3) Chronic sinusitis: The patient will follow-up with [facility] for this issue. He follows a strict regimen of nasal saline, nasal steroid, etc. (4) Diabetes mellitus: The patient has had good control with metformin. He was counseled that the prednisone for his COPD will cause hyperglycemia and to adjust his diet/meds accordingly. (5) Chronic combined systolic (congestive) and diastolic (congestive) heart failure: He remained compensated while hospitalized. He will continue on beta johana and ARB as previous. He was asked to check daily weights and to start lasix for any weight gain of more than 2-3 pounds in 1-2 days. (6) COPD exacerbation: He will complete a course of prednisone at discharge (40mg daily for 5 days). He will also continue his usual inhalers & nebulizer treatments. (7) Hypomagnesemia: Initial magnesium level was severely low at 0.8. He required IV & PO supplementation. Mag level prior to d/c was 1.8. The hypomagnesemia was felt to be due to chronic HCTZ use and thus it was discontinued. The patient was counseled that if his magnesium level continues to be low as an outpatient he will need a work-up for renal wasting. Total Time Total Time Spent Total Time Spent (In Minutes): 35 Total Time Includes: Examination of the Patient, Discharge Planning, Medication Reconciliation and Communication With Other Providers (pulmonary ) Discharge Plan Discharge Items Patient Disposition: Home - Self-Care Reason For Visit: suspected pneumonia, low magnesium Discharge Diagnosis: low magnesium - resolved; possible pneumonia - resolving. COPD with exacerbation - improving. Discharge Goals: Diagnostic testing Activity: Resume your previous activity Non-emergency contact: Primary Care Provider and Credit Reference Clerk Call non-emergency contact if: you have any medication questions, your symptoms worsen and your temperature is above 100.5 Follow-up/Referrals: Fiona Stafford MD [Primary Care Provider] - (Please, follow up with Dr. Stafford - the nurse will call you with the appointment details. *If you have any questions, call the office at [phone].) Curtis Blount MD, [facility] [Physician] - 09/26/18 3:00 pm (Please, follow up at [facility] Ear, Nose, and Throat Office with Dr. Blount's content assistant, Nat Ken PA-C, on MondaySeptember 26 at 3:00 pm. *This office is located at [facility] in [facility]). If you need to change this appointment, call the office at [phone].) Yuliya Watson CRNP [Nurse Practitioner] - 09/26/18 1:00 pm (Please, follow up at [facility] Pulmonology Office with Yuliya BOCYE on MondaySeptember 26 at 1:00 pm. *This office is located in [address] of [facility] - big building next to this hospital. If you need to change this appointment, call the office at [phone]. ) Diet: Carb Consistent or DM2 and Heart Healthy Addtl Provider Instructions: From Donald Saladña - Hospitalist - You were treated for suspected/possible pneumonia, COPD exacerbation, and low magnesium. The magnesium level is now normal. This is suspected to be from your previous use of HCTZ (hydrochlorothiazide). Your omeprazole acid cosmetic chemist can also make your magnesium low. You improved with antibiotics, nebulizer treatments, and time. At this time we recommend - 1. prednisone 40mg once daily for 5 days; start this 09/19/18. Know that prednisone can cause FLUID RETENTION and will make your sugars high. Please adjust your diet accordingly. Check your weight daily as recommended. 2. augmentin (amoxicillin-clavulanate) twice daily for 7 days; start this evening of 09/19/18. 3. azithromycin 250mg daily for 2 days; start this 09/19/18. 4. take a magnesium supplement EVERY DAY starting today. Magnesium oxide 400mg daily. Prescription provided. 5. STOP your HCTZ (hydrochlorothiazide). 6. For fluid/water retention/weight gain -- use lasix (furosemide) 20mg as needed. Check your weight every day. If your weight rises more than 2-3 pounds in 1-2 days then take the lasix until your weight is back down to your normal/dry weight. 7. If you take the lasix please take a potassium supplement with it on those days. 8. Again, for treatment of congestive heart failure, please follow the following guidelines - Call 911 and go to the Emergency Room if: * You have tightness or pain in your chest that does not go away with rest or Nitroglycerin * You are very short of breath even with rest Call your doctor if any of the following symptoms or problems start or get worse: * Shortness of breath or difficulty breathing * Wake up at night short of breath * Chest pain * Cough * Swelling of your hands, fee, or legs * More fatigued or tired with your normal activity * Palpitations - sudden fast heart beats WEIGHT * Weigh yourself every morning after using the bathroom. * Use the same scale. * Wear the same amount of clothing. * Write your weight down on your chart. * Call your doctor if you gain more than 2-3 pounds in 1-2 days. This is the time when you would start your lasix water pill* MEDICATIONS * Use this discharge instruction sheet for instructions. * Take your medications at the time your doctor ordered. * Do not skip a dose of your medicines. * If you miss a dose of medicine, take as soon as possible, but DO NOT DOUBLE A DOSE. * Read your medicine information when you get home. * Know all of the side effects of your medicine. * Call your doctor's office if you have any side effects. * Be sure all of your doctors know what medicine and herbs you take (including cold, flu, and herbal medicine). * Pain Medicine: If you do not get relief from your pain, please call your doctor for help. Take the following with you to your follow-up doctor appointments: * Weight Chart * Medication List * List of questions Do not drink excessive alcohol, beer or wine. Follow-up - * see ENT as scheduled * see cardiology as scheduled * see Dr. Rose or one of his associates at the pulmonary office within 1 week * please have your electrolytes including MAGNESIUM LEVEL rechecked at time of hospital follow-up in 1 week - any provider can order these for you Return to [facility] if - * you have worsening shortness of breath or wheezing * you have fevers over 100.5 degrees * you have excessive weight gain that is not responding to your water pills * you have chest pain * any other concerns Prescriptions: New furosemide [Lasix] 20 mg tablet 20 mg PO DAILY PRN (Reason: weight gain) Qty: 30 RF: 1 potassium chloride 20 mEq tablet extended release 20 meq PO DAILY PRN (Reason: when you take your lasix water pill) Qty: 30 RF : 1 magnesium oxide 400 mg capsule 400 mg PO DAILY Qty: 30 RF: 1 amoxicillin-pot clavulanate [Augmentin] 875-125 mg tablet 1 tab PO BID Qty: 14 RF: 0 Continue atorvastatin 40 mg Tablet 40 mg PO HS RF: 0 ipratropium-albuterol 0.5 mg-3 mg(2.5 mg base)/3 mL Solution For Nebulization 1 neb INHALATION Q4H PRN (Reason: Shortness Of Breath) RF: 0 metoprolol succinate 50 mg Tablet Extended Release 24 Hr 50 mg PO QAM RF: 0 aspirin 81 mg Tablet,Delayed Release (Dr/Ec) 81 mg PO QAM RF: 0 finasteride 5 mg Tablet 5 mg PO QAM RF: 0 budesonide-formoterol [Symbicort] 160-4.5 mcg/actuation Hfa Aerosol Inhaler 1 puff INHALATION BID RF: 0 albuterol sulfate [ProAir RespiClick] 90 mcg/actuation Aerosol Powdr Breath Activated 2 puff INHALATION QID PRN (Reason: Shortness Of Breath) RF: 0 omeprazole 40 mg capsule,delayed release(DR/EC) 40 mg PO QAM Qty: 30 RF: 2 fluticasone 50 mcg/actuation spray,suspension 2 spray Intranasal QPM RF: 0 metformin 500 mg tablet 500 mg PO BID Qty: 60 RF: 0 calcium polycarbophil [FiberCon] 625 mg Tablet 1,250 mg PO QPM RF: 0 azelastine 137 mcg (0.1 %) aerosol,spray 2 spray Intranasal BID RF: 0 losartan 100 mg tablet 100 mg PO DAILY RF: 0 Lacto.acidophilus-Bif.animalis [Probiotic] 5 billion cell Capsule, Sprinkle 1 cap PO DAILY RF: 0 Discontinued hydrochlorothiazide 25 mg tablet 12.5 mg PO QAM RF: 0 Stand-Alone Forms: My [facility], Work/School Release (Inpt) Discharge Orders: Discharge Order (Routine); Ordered 09/19/18 Ordered By: Donald Saldaña Admission Data Admit Date/Time: 09/16/18 16:10 Attending Provider: Donald Saldaña Admit Provider: Clarita Goodman Primary Care Provider: Fiona Stafford Other Providers: Clarita Goodman ; Charlie Rose Service: Medical Other Interventions: Discharge Summary Assessment (RN) Last Done: 09/19/18 12:03 Pending Studies at Discharge: Yes Studies:: blood cultures and sputum culture - but thus far these are negative. DC Date/Time DO NOT enter until pt leaves facility: 09/19/18 13:17
== END 2018-09-19 13:17 | disposition home or self-care (01) | DRG 871 ==
LOC: ED 13:12 → 2S 16:10 → SUATTDRO 16:10 → 2S 18:07 → 4E 09-17 17:58
DX: A41.9 Sepsis, unspecified organism; E83.42 Hypomagnesemia; K21.9 Gastro-esophageal reflux disease without esophagitis; Z88.1 Allergy status to other antibiotic agents; N40.0 Benign prostatic hyperplasia without lower urinary tract symptoms; E78.5 Hyperlipidemia, unspecified; J15.212 Pneumonia due to Methicillin resistant Staphylococcus aureus; F17.200 Nicotine dependence, unspecified, uncomplicated; J32.9 Chronic sinusitis, unspecified; Z88.5 Allergy status to narcotic agent; I42.9 Cardiomyopathy, unspecified; I10 Essential (primary) hypertension; E11.9 Type 2 diabetes mellitus without complications; J44.9 Chronic obstructive pulmonary disease, unspecified; R91.1 Solitary pulmonary nodule; J96.01 Acute respiratory failure with hypoxia; I50.42 Chronic combined systolic (congestive) and diastolic (congestive) heart failure

== ENCOUNTER 2023-02-01 09:08 | Inpatient (IN) ==
--- NOTE | 2022-12-29 12:37 | PAT Medication Instructions ---
Medication Instructions Date of Service December 29, 2022 Home Medications Medication Instructions Recorded Lactobacil.acidophilus-Bifido.animalis 1 cap PO QAM #90 caps 04/15/19 5 billion cell sprinkle capsule (Probiotic) aspirin 81 mg tablet,delayed 81 mg PO QAM #90 tabs 04/15/19 release magnesium oxide 400 mg PO BID #180 caps 04/15/19 Incentive Spirometer #1 ea 06/12/20 ipratropium 0.5 mg-albuterol 3 mg 3 ml inhalation Q4H PRN COPD #360 09/15/21 (2.5 mg base)/3 mL nebulization mL soln albuterol sulfate 90 mcg/actuation 2 puff inhalation Q4H PRN 12/29/21 aerosol inhaler (Ventolin HFA) increased cough, shortness of breath or wheezing #18 grams losartan 100 mg tablet 100 mg PO QAM #90 tabs 04/27/22 budesonide-formoterol HFA 160 1 inh inhalation BID #10.2 grams 06/17/22 mcg-4.5 mcg/actuation aerosol inhaler (Symbicort) finasteride 5 mg tablet 5 mg PO QAM #90 tabs 10/17/22 metformin 500 mg tablet 1,000 mg PO BID #360 tabs 10/21/22 carvedilol 6.25 mg tablet 6.25 mg PO BID #180 tabs 10/31/22 atorvastatin 40 mg tablet 40 mg PO HS #90 tabs 12/15/22 omeprazole 40 mg capsule,delayed 40 mg PO QAM #90 caps 12/15/22 release Lactobacil.acidophilus-Bifido.animalis 5 billion cell sprinkle capsule ( Probiotic) 1 cap PO QAM aspirin 81 mg tablet,delayed release 81 mg PO QAM magnesium oxide 400 mg PO BID tamsulosin 0.4 mg capsule (Flomax) 0.4 mg PO QAM acetaminophen 325 mg capsule (Tylenol) 325 mg PO BID triamcinolone acetonide 55 mcg nasal spray aerosol (Nasacort) 2 spray intranasal BID ipratropium 0.5 mg-albuterol 3 mg (2.5 mg base)/3 mL nebulization soln 3 ml inhalation Q4H PRN albuterol sulfate 90 mcg/actuation aerosol inhaler (Ventolin HFA) 2 puff inhalation Q4H PRN losartan 100 mg tablet 100 mg PO QAM budesonide-formoterol HFA 160 mcg-4.5 mcg/actuation aerosol inhaler (Symbicort) 1 inh inhalation BID finasteride 5 mg tablet 5 mg PO QAM metformin 500 mg tablet 1,000 mg PO BID carvedilol 6.25 mg tablet 6.25 mg PO BID atorvastatin 40 mg tablet 40 mg PO HS omeprazole 40 mg capsule,delayed release 40 mg PO QAM cyanocobalamin (vitamin B-12) 1,000 mcg tablet 1,000 mcg PO QAM umeclidinium 62.5 mcg/actuation blister powder for inhalation (Incruse Ellipta) 1 inh inhalation QPM DO NOT take the morning of surgery Lactobacil.acidophilus-Bifido.animalis 5 billion cell sprinkle capsule (Probiotic) 1 cap PO QAM magnesium oxide 400 mg PO BID losartan 100 mg tablet 100 mg PO QAM finasteride 5 mg tablet 5 mg PO QAM metformin 500 mg tablet 1,000 mg PO BID cyanocobalamin (vitamin B-12) 1,000 mcg tablet 1,000 mcg PO QAM Take morning of surgery With a small sip of water, OTHERWISE NOTHING TO EAT OR DRINK AFTER MIDNIGHT: aspirin 81 mg tablet,delayed release 81 mg PO QAM (unless directed otherwise by surgeon) tamsulosin 0.4 mg capsule (Flomax) 0.4 mg PO QAM acetaminophen 325 mg capsule (Tylenol) 325 mg PO BID triamcinolone acetonide 55 mcg nasal spray aerosol (Nasacort) 2 spray intranasal BID ipratropium 0.5 mg-albuterol 3 mg (2.5 mg base)/3 mL nebulization soln 3 ml inhalation Q4H PRN(if needed) albuterol sulfate 90 mcg/actuation aerosol inhaler (Ventolin HFA) 2 puff inhalation Q4H PRN(use if needed; please bring with you to hospital day of surgery if possible) budesonide-formoterol HFA 160 mcg-4.5 mcg/actuation aerosol inhaler (Symbicort) 1 inh inhalation BID carvedilol 6.25 mg tablet 6.25 mg PO BID omeprazole 40 mg capsule,delayed release 40 mg PO QAM Take evening before surgery magnesium oxide 400 mg PO BID acetaminophen 325 mg capsule (Tylenol) 325 mg PO BID triamcinolone acetonide 55 mcg nasal spray aerosol (Nasacort) 2 spray intranasal BID ipratropium 0.5 mg-albuterol 3 mg (2.5 mg base)/3 mL nebulization soln 3 ml inhalation Q4H PRN(if needed) albuterol sulfate 90 mcg/actuation aerosol inhaler (Ventolin HFA) 2 puff inhalation Q4H PRN(use if needed; please bring with you to hospital day of surgery if possible) budesonide-formoterol HFA 160 mcg-4.5 mcg/actuation aerosol inhaler (Symbicort) 1 inh inhalation BID metformin 500 mg tablet 1,000 mg PO BID carvedilol 6.25 mg tablet 6.25 mg PO BID atorvastatin 40 mg tablet 40 mg PO HS umeclidinium 62.5 mcg/actuation blister powder for inhalation (Incruse Ellipta) 1 inh inhalation QPM Other Notes If you have any questions please call us at [phone] or [phone] or [phone] or [phone]
--- NOTE | 2023-01-17 11:24 | Anesthesiology Consultation ---
Date of Service January 17, 2023 Assessment & Plan (1) Encounter for pre-operative examination: - Check BSG AM DOS - COVID screening: Per assessment on 01/17: No known COVID-19 positive contacts or current COVID-19 related symptoms. Travel screen negative. Patient vaccinated. Patient was seen by [facility] [place]/02 for wheezing and vomiting, suspected PNA. Covid (NAAT) and CXR ordered. Covid (NAAT) 01/02/23 came back positive and patient had evidence of PNA on CXR. Significantly elevated WBC > patient sent to [facility] ER. Covid PCR testing done same day 01/02 came back negative. Per hospitalization notes "Patient had a positive Covid-19 test at PCP but negative in the ED.. Questionable Covid-19 infection" > Covid PCR testing through hospitalization negative. Discharge summary notes PNA with asthma exacerbation- treated with abx/steroids. Case reviewed with anesthesia team. Given negative Covid PCR testing done after positive NAAT testing, will order [place] AM DOS as patient will be admission post-operatively. Astorga order placed . - Outpatient joint assessment: Pt currently scheduled for inpatient pathway. If surgeon requests review for outpatient joint pathway, patient is not recommended candidate for outpatient joint program from anesthesia standpoint. - Patient acceptable risk for surgery pending surgeon-ordered cardiology ([facility] and PCP ([facility] [facility]) preop evaluations. Chart Review Chart Review: Patient seen in Pre Admission Testing Teaching & Discussion Pre-Anesthesia Teaching/Discussion Notes: Instructed NPO after midnight before surgery,except medications with 15 cc of water. Medication instructions provided according to the PAT guidelines. History Surgery Operation Date: 02/01/23 07:00 Proposed Procedures p Left Total Shoulder Arthroplasty, Distal Clavicle Excision - Rebel Gallego MD Height/Weight Height: 5 ft 11 in Weight: 91.4 kg Allergies Allergy/AdvReac Type Severity Reaction Status Date / Time levofloxacin Allergy Severe Facial Verified 01/17/23 11:59 swelling hydrocodone [From Vicodin] AdvReac Severe Gastrointestinal Verified 01/11/23 12:41 Upset oxycodone [From OxyContin] AdvReac Severe Gastrointestinal Verified 01/11/23 12:41 Upset doxepin [From Sinequan] AdvReac Unknown Drowsiness Verified 01/17/23 11:59 Lisinopril TABS Allergy Unknown Angioedema Uncoded 01/17/23 11:59 Keflex TABS AdvReac Unknown Gastrointestinal Uncoded 01/17/23 11:59 Upset Tranxene-T AdvReac Unknown Hyperactivi Uncoded 01/17/23 12:00 ty Medications Home Medications Medication Instructions Recorded Confirmed Last Taken Lactobacil.acidophilus-Bifido.animalis 1 cap PO QAM #90 caps 04/15/19 01/11/23 Unknown 5 billion cell sprinkle capsule (Probiotic) aspirin 81 mg tablet,delayed 81 mg PO QAM #90 tabs 04/15/19 01/11/23 Unknown release magnesium oxide 400 mg PO BID #180 caps 04/15/19 01/11/23 Unknown Incentive Spirometer #1 ea 06/12/20 01/11/23 Unknown tamsulosin 0.4 mg capsule (Flomax) 0.4 mg PO QAM 03/22/21 01/11/23 Unknown acetaminophen 325 mg capsule 325 mg PO BID 08/17/21 01/11/23 Unknown (Tylenol) triamcinolone acetonide 55 mcg 2 spray intranasal BID 08/17/21 01/11/23 Unknown nasal spray aerosol (Nasacort) ipratropium 0.5 mg-albuterol 3 mg 3 ml inhalation Q4H PRN COPD #360 09/15/21 01/11/23 Unknown (2.5 mg base)/3 mL nebulization mL soln albuterol sulfate 90 mcg/actuation 2 puff inhalation Q4H PRN 12/29/21 01/11/23 Unknown aerosol inhaler (Ventolin HFA) increased cough, shortness of breath or wheezing #18 grams losartan 100 mg tablet 100 mg PO QAM #90 tabs 04/27/22 01/11/23 Unknown budesonide-formoterol HFA 160 1 inh inhalation BID #10.2 grams 06/17/22 01/11/23 Unknown mcg-4.5 mcg/actuation aerosol inhaler (Symbicort) finasteride 5 mg tablet 5 mg PO QAM #90 tabs 10/17/22 01/11/23 Unknown metformin 500 mg tablet 1,000 mg PO BID #360 tabs 10/21/22 01/11/23 Unknown carvedilol 6.25 mg tablet 6.25 mg PO BID #180 tabs 10/31/22 01/11/23 Unknown atorvastatin 40 mg tablet 40 mg PO HS #90 tabs 12/15/22 01/11/23 Unknown omeprazole 40 mg capsule,delayed 40 mg PO QAM #90 caps 12/15/22 01/11/23 Unknown release cyanocobalamin (vitamin B-12) 1,000 mcg PO QAM 12/29/22 01/11/23 Unknown 1,000 mcg tablet umeclidinium 62.5 mcg/actuation 1 inh inhalation QPM 12/29/22 01/11/23 Unknown blister powder for inhalation (Incruse Ellipta) amoxicillin 875 mg-potassium 1 tab PO BID 01/05/23 01/11/23 Unknown clavulanate 125 mg tablet Past Medical History Medical History Allergic rhinitis Asthma Benign essential hypertension Benign prostatic hyperplasia with urinary obstruction and other lower urinary tract symptoms Bronchiectasis Chronic anemia Chronic combined systolic (congestive) and diastolic (congestive) heart failure Chronic sinusitis Depression Diabetes mellitus NIDDM Generalized osteoarthritis of multiple sites GERD (gastroesophageal reflux disease) Hearing loss Hyperlipidemia Hypogammaglobulinemia Immune deficiency disorder Nonischemic cardiomyopathy Exercise / Class Metabolic Activity III < 4 Walking/Shop/Light housework Past Family History Family History Father Alzheimer disease Coronary heart disease Mother Breast cancer Diabetes Hypertension Sister Diabetes Coronary heart disease Brother Diabetes Heart disease Denies family history of Ovarian cancer Prostate cancer Myocardial infarction Colorectal cancer Past Surgical History Surgical History H/O colonoscopy History of arthroscopy of shoulder History of bronchoscopy History of esophagogastroduodenoscopy (EGD) History of prostate biopsy History of total bilateral knee replacement (TKR) Twice each knee History of total left hip arthroplasty Left hip surgery x2 S/P inguinal hernia repair Status post laparoscopic cholecystectomy Past Anesthesia History No Hx of Anesthesia Complications and No Family Hx of Anesthesia Complications History of PONV No Hx of PONV and No Hx of Motion Sickness Social History Smoking Status: Former smoker tobacco type: cigarettes Do You Dip or Chew Tobacco: No Smoking End Date: Quit age 18 (tobacco use ages [age]) Hx Alcohol Use: Yes Alcohol type: beer alcohol intake frequency: holidays/special occasions only Hx Substance Use: No substance use type: does not use Review of Systems Patient denies chest pain, shortness of breath, fever, chills, cough, wheezing, palpitations. Physical Exam Vital Signs VITALS BP 117/70 P 63 TEMP 97.6 SP02 95%RA RESP 16 PHYSICAL Full cervical extension range of motion. Full TMJ range of motion. TMD 3 finger breaths Mallampati Score 3 Dentition: several missing sides/molars Lungs: clear throughout to auscultation Cardiac: regular rate and rhythm, no murmurs noted Spine: normal Carotid arteries: negative bruit Extremities: no LE edema Lab Results Anesthesia Preop Results Results Anesthesia Widget: WBC 4.80 K/ul (4.8-10.8) 01/17/23 Hgb 12.4 g/dl (14.0-18.0) L 01/17/23 Hct 37.6 % (42.0-52.0) L 01/17/23 Plt 327 K/uL (130-400) 01/17/23 Na 137 mmol/L (136-145) 01/17/23 K 4.3 mmol/L (3.5-5.1) 01/17/23 Cl 103 mmol/L (98-107) 01/17/23 CO2 26 mmol/L (21-32) 01/17/23 BUN 31 mg/dl (6-23) H 01/17/23 Creat 1.08 mg/dl (0.6-1.4) 01/17/23 Glucose Level 212 mg/dl (70-99(Fasting)) H 01/17/23 PT 11.0 Seconds (9.0-12.0) 01/17/23 PTT 25.2 Seconds (21.0-31.0) 01/17/23 INR 1.0 (0.9-1.1) 01/17/23 HA1c 7.7 % (4.5-5.6) H 01/17/23 Urine Color Yellow 01/17/23 Urine Appearance Clear (Clear) 01/17/23 Urine pH 5.0 (4.5-7.5) 01/17/23 Urine Specific [place] 1.026 (1.000-1.030) 01/17/23 Urine Protein Negative (Negative) 01/17/23 Urine Glucose (UA) Trace (Negative) H 01/17/23 Urine Ketones Trace (Negative) H 01/17/23 Urine Blood Negative (Negative) 01/17/23 Urine Nitrite Negative (Negative) 01/17/23 Urine Bilirubin Negative (Negative) 01/17/23 Urine Urobilinogen Negative (Negative) 01/17/23 Urine Leukocyte Esterase 1+ (Negative) H 01/17/23 Urine WBC (Auto) 10-30 /hpf (0-5) H 01/17/23 Urine RBC (Auto) 0-4 /hpf (0-4) 01/17/23 Urine Hyaline Casts (Auto) 1-5 /lpf (0-5) 01/17/23 Urine Epithelial Cells (Auto) 5-10 /lpf (0-5) H 01/17/23 Urine Bacteria (Auto) Negative (Negative) 01/17/23 SARS-CoV-2, RNA, NAAT Positive 01/02/23 Blood Type AB Positive 01/17/23 Antibody Screen NEGATIVE 01/17/23 Testing Electrocardiogram Date: 01/02/23 ST with frequent PVCs at 102bpm. LAD. ND IVCD. ST/TWA, consider lateral ischemia. Compared to 03/16/21, PVCs are now present per dramatic director comparison. Patient will be having preop cardiology evaluation prior to surgery* Chest X-Ray Date: 01/17/23 FINDINGS: No pneumothorax. No pleural effusions. There is mild elevation of the right hemidiaphragm, unchanged. A few small right basilar linear densities favor subsegmental atelectasis or scarring. Otherwise, no new focal lung consolidations to suggest a pneumonia. No evidence for bone edema. The cortex was normal in size. Prior cholecystectomy. Stable prominence of the right hilum. Degenerative changes noted within the shoulders. IMPRESSION: No acute process. Echocardiogram Date: 01/03/23 LVEF 30-34% (moderately reduced). Moderate diffuse LV HK. Moderate LAE. Dilated proximal IVC. Mild MR. COVID-19 Risk Screen Screening Information COVID-19 Screen Date: 01/17/23 Exposure 21 Days Family/Household +COVID Last 21 Days: No Exposure 10 Days Any COVID Exposure Last 10 Days: No Symptoms Last 10 Days Experienced COVID Sx Last 10 Days: No + COVID 0-90 Days COVID + in Last 0-90 Days: No
--- NOTE | 2023-01-22 08:32 | History & Physical Report ---
Date of Service January 22, 2023 Assessment & Plan (1) Primary osteoarthritis, left shoulder: Plan: Treatment options discussed with the patient. He has failed conservative measures. Pain is interfering with his daily activities and he like to proceed with surgical intervention. Risks, benefits and alternatives to surgery including but not limited to infection, DVT, pain, stiffness, need for revision surgery, damage to blood vessels, damage to nerves, PE, , were discussed with the patient and they wish to proceed. Plan for left total shoulder arthroplasty with open distal clavicle excision scheduled for February 01 at [facility] with Dr. Gallego. Likely will plan on tramadol postop due to reactions to hydrocodone and oxycodone. Plan on outpatient physical therapy post op. All questions answered. History of Present Illness Chief Complaint: Left shoulder pain Primary Care Provider: Fiona Stafford MD 82-year-old male with past medical history significant for recent pneumonia last month, diabetes, hypertension, heart failure who presents with ongoing left shoulder pain. Patient has failed conservative measures. Pain is interfering with his daily activity. Patient denies headaches, sweats, fevers, chills, double vision, blurred vision, cough, sore throat, dysphagia, chest pain, sob, wheezing, n/v/d/c, numbness, tingling, fatigue, urinary symptoms, mood disorders. ROS positive for left shoulder pain and stiffness. Allergies Allergy/AdvReac Type Severity Reaction Status Date / Time levofloxacin Allergy Severe Facial Verified 01/17/23 11:59 swelling hydrocodone [From Vicodin] AdvReac Severe Gastrointestinal Verified 01/11/23 12:41 Upset oxycodone [From OxyContin] AdvReac Severe Gastrointestinal Verified 01/11/23 12:41 Upset doxepin [From Sinequan] AdvReac Unknown Drowsiness Verified 01/17/23 11:59 Lisinopril TABS Allergy Unknown Angioedema Uncoded 01/17/23 11:59 Keflex TABS AdvReac Unknown Gastrointestinal Uncoded 01/17/23 11:59 Upset Tranxene-T AdvReac Unknown Hyperactivi Uncoded 01/17/23 12:00 ty Home Medications Medication Instructions Recorded Confirmed Type Lactobacil.acidophilus-Bifido.animalis 1 cap PO QAM #90 caps 04/15/19 01/11/23 Rx 5 billion cell sprinkle capsule (Probiotic) aspirin 81 mg tablet,delayed 81 mg PO QAM #90 tabs 04/15/19 01/11/23 Rx release magnesium oxide 400 mg PO BID #180 caps 04/15/19 01/11/23 Rx Incentive Spirometer #1 ea 06/12/20 01/11/23 Rx tamsulosin 0.4 mg capsule (Flomax) 0.4 mg PO QAM 03/22/21 01/11/23 History acetaminophen 325 mg capsule 325 mg PO BID 08/17/21 01/11/23 History (Tylenol) triamcinolone acetonide 55 mcg 2 spray intranasal BID 08/17/21 01/11/23 History nasal spray aerosol (Nasacort) ipratropium 0.5 mg-albuterol 3 mg 3 ml inhalation Q4H PRN COPD #360 09/15/21 01/11/23 Rx (2.5 mg base)/3 mL nebulization mL soln albuterol sulfate 90 mcg/actuation 2 puff inhalation Q4H PRN 12/29/21 01/11/23 Rx aerosol inhaler (Ventolin HFA) increased cough, shortness of breath or wheezing #18 grams losartan 100 mg tablet 100 mg PO QAM #90 tabs 04/27/22 01/11/23 Rx budesonide-formoterol HFA 160 1 inh inhalation BID #10.2 grams 06/17/22 01/11/23 Rx mcg-4.5 mcg/actuation aerosol inhaler (Symbicort) finasteride 5 mg tablet 5 mg PO QAM #90 tabs 10/17/22 01/11/23 Rx metformin 500 mg tablet 1,000 mg PO BID #360 tabs 10/21/22 01/11/23 Rx carvedilol 6.25 mg tablet 6.25 mg PO BID #180 tabs 10/31/22 01/11/23 Rx atorvastatin 40 mg tablet 40 mg PO HS #90 tabs 12/15/22 01/11/23 Rx omeprazole 40 mg capsule,delayed 40 mg PO QAM #90 caps 12/15/22 01/11/23 Rx release cyanocobalamin (vitamin B-12) 1,000 mcg PO QAM 12/29/22 01/11/23 History 1,000 mcg tablet umeclidinium 62.5 mcg/actuation 1 inh inhalation QPM 12/29/22 01/11/23 History blister powder for inhalation (Incruse Ellipta) amoxicillin 875 mg-potassium 1 tab PO BID 01/05/23 01/11/23 History clavulanate 125 mg tablet Past Med/Surg History Medical History Allergic rhinitis Asthma Benign essential hypertension Benign prostatic hyperplasia with urinary obstruction and other lower urinary tract symptoms Bronchiectasis Chronic anemia Chronic combined systolic (congestive) and diastolic (congestive) heart failure Chronic sinusitis Depression Diabetes mellitus NIDDM Generalized osteoarthritis of multiple sites GERD (gastroesophageal reflux disease) Hearing loss Hyperlipidemia Hypogammaglobulinemia Immune deficiency disorder Nonischemic cardiomyopathy Surgical History H/O colonoscopy History of arthroscopy of shoulder History of bronchoscopy History of esophagogastroduodenoscopy (EGD) History of prostate biopsy History of total bilateral knee replacement (TKR) Twice each knee History of total left hip arthroplasty Left hip surgery x2 S/P inguinal hernia repair Status post laparoscopic cholecystectomy Family History Father Alzheimer disease Coronary heart disease Mother Breast cancer Diabetes Hypertension Sister Diabetes Coronary heart disease Brother Diabetes Heart disease Denies family history of Ovarian cancer Prostate cancer Myocardial infarction Colorectal cancer Social History Smoking Status: Former smoker Tobacco Type: Cigarettes Age Started Using Tobacco: 13; Age Quit Using Tobacco: 21; packs per day: 0.5; Second Hand Exposure: No; Do You Dip or Chew Tobacco: No; Hx Alcohol Use: Yes Alcohol type: beer Alcohol Intake Frequency: 2-4 x/Month Hx Substance Use: No Preferred Language: Pakistani Communication Ability: Effective Visual Impairment: No Limitations Hearing Ability: Use of Hearing Aid Paper 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 How many Children do You have: 2 Feels Safe at Home: Yes Childhood Exposure to Second-Hand Smoke: No Diet: regular caffeine: Yes (coffee) during the past year weight has: remained stable Dental Care, Regularly: Yes Physical Activity Frequency: Daily Seatbelt Use: always Sunscreen Use: No Do you think of yourself as: straight/heterosexual Gender Identity: Male Assistive Devices: Hearing Aid - Bilateral Review of Systems All systems reviewed & are unremarkable except as noted in HPI & below Physical Exam Constitutional: well developed and well nourished; no acute distress Eyes: PERRL, conjunctivae normal, anicteric sclerae ENMT: external ear and nose normal, oropharynx normal Neck: trachea midline, no thyromegaly Respiratory: normal respiratory effort; no respiratory distress Auscultation: + wheezes Cardiovascular: RRR, no murmur, no edema Musculoskeletal: Left shoulder: Positive impingement signs. Crepitation is present. Diffuse tenderness. Range of motion is painful. Abduction to 90 degrees, forward flexion to 130 degrees, external rotation to 60 degrees actively. Patient has full strength. Skin: no rashes, warm and dry Neurologic: patellar DTR's 2+ bilat, sensation intact Psychiatric: A+Ox3, euthymic affect Results & Data Diagnostic Findings Left shoulder radiographs demonstrate severe end-stage osteoarthritis, [id number] glenohumeral joint. Patient is a type B2 glenoid with posterior glenoid wear. There is moderate AC joint arthritis. MRI demonstrates an intact rotator cuff.
[~2023-02-01 09:08] MED LIST changes: +ACETAMINOPHEN 500 MG TAB PO SCH; -ALBU18002 INH; -ALL60 PO; -ASPI81TA28 PO; -AZIT-57 PO; +BUPIVACAINE 0.5 % 5 MG/1 ML PF 10ML VIAL ONE; -CEFD300C3 PO; +CeleBREX 200 MG CAP PO SCH; +FAMOTIDINE 20 MG TAB PO SCH; -FIBER PO; -FLNIN/ NAE; +GABAPENTIN 300 MG CAP PO SCH; -GFNSR600 PO; -HYDR25TA5 PO; -IBUP-1050 PO; -IPRASOL4 NEB; +LR 15ML/HR IV SCH; +METOCLOPRAMIDE HCL 10 MG TABLET PO SCH; -NRV/10 PO; -OMEP20CA9 PO; -PRED10TA PO; -PRS5 PO; -SYMIN160 INH; -TPRSR25 PO; +TRANEXAMIC ACID 1,000 MG **IV Intra-op IV SCH; +TRANEXAMIC ACID 1,000 MG **IV Pre-op IV SCH; +ceFAZolin 2000MG 2,000 MG/15 ML SYR IV SCH
[2023-02-01] MEDS ORDERED: PROPOFOL IV EMULSION 10 MG/ML 20 ML VIAL IV ONE (10:08)
[2023-02-01] MEDS ORDERED: ONDANSETRON INJ 2 MG/ML 2 ML VIAL ONE (10:08)
[2023-02-01] MEDS ORDERED: fentaNYL citrate PF 100 MCG/2 ML VIAL ONE (10:09)
[2023-02-01] MEDS ORDERED: MIDAZOLAM HCL 1 MG/ML 2ML VIAL ONE (10:09)
--- NOTE | 2023-02-01 10:23 | History & Physical Bridge Note ---
Date of Service February 01, 2023 History & Physical Bridge Note I have examined the patient, reviewed the History & Physical and in the interval since the performance of the History & Physical I have noted the following changes of clinical significance: no changes noted
[2023-02-01] MEDS ORDERED: PROMETHAZINE HCL 6.25 MG in SODIUM CHLORIDE 0.9% 50 ML IV PRN (10:24)
[2023-02-01] MEDS ORDERED: ePHEDrine sulfate 50 MG/ML AMP IV PRN (10:24)
[2023-02-01] MEDS ORDERED: ONDANSETRON INJ 2 MG/ML 2 ML VIAL IV PRN (10:24)
[2023-02-01] MEDS ORDERED: ATROPINE SULFATE 0.1 MG/ML 10ML SYR IV PRN (10:24)
[2023-02-01] MEDS ORDERED: fentaNYL citrate PF 100 MCG/2 ML VIAL IV PRN (10:24)
[2023-02-01] MEDS ORDERED: EpINEphrine HCL INJ 1 MG/ML 1ML SYRINGE ONE (12:00)
[2023-02-01] MEDS ORDERED: ROCURONIUM BROMIDE 10 MG/ML 5 ML VIAL IV ONE ×3 (15:11→15:12)
[2023-02-01] MEDS ORDERED: PHENYLEPHRINE HCL 10 MG/ML VIAL ONE (15:12)
[2023-02-01] MEDS ORDERED: ePHEDrine sulfate 50 MG/ML SYR ONE (15:12)
[2023-02-01] MEDS ORDERED: LIDOCAINE 2% 2 ML VIAL/AMP(20MG/ML) INFIL ONE (15:12)
[2023-02-01] MEDS ORDERED: ceFAZolin 330 MG/ML 1 GM VIAL ONE (15:53)
[2023-02-01] MEDS ORDERED: ceFAZolin 2000MG 2,000 MG/15 ML SYR IV STA (16:10)
[2023-02-01] MEDS ORDERED: SUGAMMADEX SODIUM 200 MG/2 ML VIAL IV ONE (16:14)
--- NOTE | 2023-02-01 16:28 | Post Operative Brief Note ---
Immediate Post Op Note v1 Date of Surgery February 01, 2023 Pre & Post Diagnosis Operation Date: 02/01/23 12:00 Pre-Op Diagnosis: Left shoulder primary osteoarthritis glenohumeral joint and AC joint, calcific tendinitis rotator cuff, ganglion cyst AC joint, subacromial impingement. Post-Op Diagnosis: Left shoulder primary osteoarthritis glenohumeral joint and AC joint, calcific tendinitis multiple areas of rotator cuff, ganglion cyst AC joint, proximal biceps rupture, subacromial impingement, subacromial bursitis. I identified the patient and participated in the time-out.: Yes Procedure Operation Date: 02/01/23 12:00 Actual Procedures p Left Total Shoulder Arthroplasty, Distal Clavicle Excision, subacromial decompression, excision multiple calcium deposits, subacromial bursectomy, biceps tenodesis, excision ganglion cyst AC joint. (Left) - Rebel Gallego MD Surgeon Rebel Gallego MD Seed Potato Cutter Iain MADSEN Estimated Blood Loss 75 Findings Consistent with Post-Op Diagnosis Specimens Humeral head and distal clavicle Drains Hemovac Drain (1/8inch round with 400ml evacuator) Anesthesia Type General Regional Complications Inferior glenoid fracture Disposition Disposition: Recovery Room
--- NOTE | 2023-02-01 17:05 | Operative Report ---
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 I identified the patient and participated in the time-out.: Yes Procedure Operation Date: 02/01/23 12:00 Actual Procedures p Left Total Shoulder Arthroplasty, Distal Clavicle Excision, excision multiloculated ganglion cyst acromioclavicular joint, biceps tenodesis, subacromial decompression and subacromial bursectomy, excision multiple calcific deposits rotator cuff. (Left) - Rebel Gallego MD Surgeon Rebel Gallego MD Supply Cataloguer Iain MADSEN Estimated Blood Loss 75 Findings Consistent with Post-Op Diagnosis Specimens None Drains 2 Hemovac Anesthesia Type General Regional Complications Inferior glenoid fracture Disposition Disposition: Recovery Room Indications 82-year-old active male still works out in the gym on a regular basis. Patient has end-stage glenohumeral osteoarthritis and radiographs demonstrate diffuse calcific tendinitis multiple areas of the rotator cuff and some lateral spurs on the acromion likely causing some impingement and some AC spurs and end-stage AC joint osteoarthritis with a multiloculated ganglion cyst of the AC joint. Description of Procedure The patient was taken to the operating room and anesthetized under a general and regional block anesthesia. A towel roll was placed under the medial border of the scapula of the left shoulder. The patient's head was placed on a foam headrest and protective eyewear was placed and the extremities were well padded. The arm was draped free in order to manipulate the shoulder as necessary. The shoulder exam demonstrated 140 degrees forward flexion 100 degrees of abduction 15 degrees of external rotation and 40 degrees of internal rotation. There is soft tissue swelling over the AC joint. The shoulder was sterilely prepped and draped in the usual sterile fashion. An anterior deltopectoral approach was performed. A longitudinal incision was made in the interval. The skin was incised sharply and subcutaneous tissues dissected down to the fascia. The cephalic vein was identified and retracted laterally with the deltoid. Any crossing veins were tied off with silk ties and divided. The clavipectoral fascia was divided at the lateral margin of the conjoined tendon and divided up to the level of the coracoacromial ligament which was preserved. The upper 1 cm of the pectoralis was released for inferior exposure. The biceps tendon findings demonstrated that the biceps is under poor tension consistent with a proximal biceps rupture with retraction however the biceps tissue underlying the pectoralis tendon look to be good thick tissue that could be tenodesed to the pectoralis tendon and the more proximal tendon tissue looked poor.. The rotator cuff tendon findings demonstrated in the superior rotator cuff there were superficial calcium deposits underlying about a millimeter of rotator cuff tissue and a large pocket over the supraspinatus tendon. This extended a least 4 cm across the superior rotator cuff. There was in the subscapularis tendon another large calcium deposit this was more in the upper subscapularis rotator interval inner surface which was identified during the subscapularis takedown. This was about 7 x 6 mm in diameter and other multiple calcium deposits in that area as well. There are some chronic scarred subacromial bursa and there were more Deposits Underlying acromion process and the bursa tissue underlying the anterolateral aspect of that there were lateral bone spurs and anterior lateral bone spurs causing impingement. There is tendinopathy of the rotator cuff but no significant partial tearing or complete tears identified. The circumflex vessels were identified and tied off with silk ties and divided laterally. The fibers and subscapularis were split longitudinally at the level of the circumflex vessels down to the capsule and then reflected off the inferior capsule using a Kitner elevator. The axillary nerve was identified with a tug test and protected with a blunt Haylie retractor. The rotator interval was opened up and extended down to the glenoid. The biceps tendon was tenodesed to the pectoralis tendon with [id number] #2 FiberWire sutures in the proximal biceps was resected. The subscapularis tendon was taken down with a trans- tendinous incision leaving a cuff of tissue for repair on the lesser tuberosity. The calcium deposits were removed from the subscapularis tendon. A small incision was made in the area of the calcium deposits of the supraspinatus and these were curetted out and removed with a rongeur. Removed as much calcium as possible but some was embedded into the tissues of the rotator cuff. The defect did not create any high-grade partial tear. The incision was then carried down to the tendon and the capsule and a #1 Vicryl suture was placed into the free end of the subscapularis tendon. The capsule was subperiosteally dissected off the inferior neck of the humerus exposing the humeral osteophytes which demonstrated large inferior osteophytes extending from anterior to posterior.. The osteophytes were excised with an artist chisel and a rongeur. The capsular release along the inferior neck of the humerus was completed. The humerus was then retracted posterior to the glenoid with a Fukuda retractor. The labrum was resected. Deposits of the Inner Capsule and Some the Capsule Was Resected Anteriorly. The glenoid findings demonstrated a B2 glenoid with complete loss of articular cartilage throughout the glenoid with eburnated bone. The B2 glenoid was shallow posteriorly amenable to 25 degree augment as planned per the blueprint CT scan preoperative templating.. I did an anterior inferior and posterior inferior release with electrocautery on bone and a Gibson elevator with the axillary nerve continuing to be protected with the blunt Hohmann retractor inferiorly. When the releases were completed and the humeral head was exposed with some extension and external rotation and in anatomic head cut was made using the oscillating saw. The ascend flex Tornier total shoulder arthroplasty was used including the Cortiloc posterior augmented glenoid component. Attention was first taken to preparation of the humeral shaft. A centralizing awl was used followed by broaches up to the appropriate templated size. The trial broach was left in place and a cut protector was placed. The humerus was then retracted posterior to the glenoid using a Bankart retractor anteriorly and blunt Haylie and posterior Tornier glenoid retractor. The blueprint custom PSI guide was placed onto the glenoid and the central guidewire was drilled. The glenoid was sized for a size left extra-large 25 degree Cortiloc posterior augmented component. The first reamer was used to ream the anterior glenoid. Exposure was tight due to the large size of the humeral head size 54 and the extra-large size glenoid and chronic stiffness. I had used the half-enriquez type reamers in order to get them into the joint which we did successfully and reamed the anterior glenoid however there was an inferior notch pre-existing on the g lenoid adjacent to an osteophyte in the edge of the reamer caught on that and a small fracture occurred at the inferior glenoid causing a U-shaped loss of bone in the central inferior glenoid. It did not approach the central pin or the posterior inferior peg site and was just underneath the anterior inferior peg site so we could still proceed with the Cortiloc implant. Retractors were readjusted and the reamer for the posterior augment was utilized then a trial reduction performed and the peg holes were drilled for the cement fixation. A trial component was placed with a tight fit. The trial was removed and the glenoid was irrigated with pulsatile lavage antibiotic solution and the drill holes were dried and packed with epinephrine-soaked tampons for hemostasis. The Palacos G cement was vacuum mixed. The final component was cemented into position and held in position with pressure until the cement cured. The final component was the extra-large left Cortiloc 25 degree posterior augmented polyethylene component. A 54 x 23 mm humeral head trial was placed. A trial reduction was performed and the shoulder was stable. The trial was removed and the humerus and canal were irrigated with antibiotic solution with bacitracin. 3 drill holes were made into the hard bone in the bicipital groove lateral to the lesser tuberosity and 3 #5 FiberWire transosseous sutures were placed for repair of the subscapularis. After further irrigation of the canal and the final components were assembled. The final components were the 70 PTC standard ascend flex stem assembled to the 54 x 23 mm high offset humeral head. The implant was then impacted into the humerus with a tight press-fit. The humerus was reduced to the glenoid and stability verified. The subscapularis was repaired with the #5 FiberWire sutures in a Mal-Cristian suture technique and lateral row fixation with [id number] #2 FiberWire in the soft tissue. The rotator interval was closed in maximal external rotation. The arm was forward flexed the subacromial space was accessed underlying the deltoid by retracting it superiorly the lateral spurs and anterolateral spurs were subperiosteally dissected out maintaining the deltoid attachment site. Spurs removed with a rongeur and a Tieman rasp used to smooth them out. Some further calcium Deposits in the Bursa Were Resected along with the scarred subacromial bursa until all of that was removed. Attention was taken to the acromioclavicular joint and a transverse incision was made over that area and the skin was incised sharply and subcutaneous flaps were elevated. Dissection was carried down onto the large cyst which was about 2 cm in diameter multiloculated extending back into the trapezius muscle. The cyst was completely dissected out and resected from the top of the AC joint. Some gel-like material was expressed from the cyst consistent with a ganglion. The distal clavicle was then subperiosteally dissected out and 1 cm distal clavicle was resected. The end of the clavicle was [id number]. The superior spurs on acromion were resected and the inferior spurs on the acromion facet were resected via the AC joint resection site with a rongeur and the Tieman rasp was used again to smooth out that area. After copious irrigation with pulsatile lavage the deltoid trapezius fascia was repaired with [id number] #2 FiberWire with a good solid repair. The subcutaneous tissue was closed into 2-0 Vicryl and the skin was closed with radha. The pectoralis split was then closed with [id number] #2 FiberWire suture. The sutures were passed through the biceps tendon as well to reinforce the biceps tenodesis. 2 Hemovac drains were placed. The deltopectoral interval was closed with [id number] #1 Vicryl sutures. The subcutaneous tissues were closed with interrupted 2-0 Vicryl and the skin was closed with radha and a sterile dressing was applied and a sling immobilizer. The patient tolerated the procedure well. Iain MADSEN my physician help desk assistant participated as electrician's assistant and was integral part in all aspects of the procedure. He assisted in soft tissue retraction instrument management suture management and assisted in the subcutaneous and skin closure and will participate in the postoperative care the patient. I attest to the content of the Intraoperative Record and any orders documented therein. Any exceptions are noted below.
--- NOTE | 2023-02-01 17:39 | XRay Report ---
XR shoulder LT min 2V routine CLINICAL HISTORY: Post shoulder surgery TECHNIQUE: 2 views of the left shoulder were obtained. Comparison: Comparison is made to chest radiograph 01/17/2023 FINDINGS: Patient is status post shoulder arthroplasty with expected postsurgical changes including soft tissue swelling and subcutaneous emphysema. No periarticular lucency or hardware fracture is seen. IMPRESSION: Expected postoperative appearance status post placement of shoulder arthroplasty. ACT 112: Negative or not required by law. Electronically signed by: Jose D Montoya M.D. 02/01/2023 5:38 PM
[2023-02-01] MEDS ORDERED: NALOXONE HCL 0.4 MG/1 ML VIAL/CARP IV PRN (17:40)
[2023-02-01] MEDS ORDERED: oxyCODONE HCL IR 5 MG TAB (IMMEDIATE RELEASE) PO PRN (17:40)
[2023-02-01] MEDS ORDERED: diphenhydrAMINE 50 MG/ML VIAL IV PRN (17:40)
[2023-02-01] MEDS ORDERED: bisacodyL 10 MG SUPP PR PRN (17:40)
[2023-02-01] MEDS ORDERED: MAGNESIUM HYDROXIDE SUSP 30 ML UDC PO PRN (17:40)
[2023-02-01] MEDS ORDERED: HYDROmorphone INJ 0.5 MG/0.5 ML SYR IV PRN (17:40)
[2023-02-01] MEDS ORDERED: ALBUT/IPRATROP 3MG/0.5MG NEB 3 ML VIAL INH PRN (17:40)
[2023-02-01] MEDS ORDERED: ALBUTEROL HFA 8 GM INHALER INH PRN (17:40)
[2023-02-01] MEDS ORDERED: PHARMACY GLYCEMIC MGMT CONSULT PRN (18:00)
[2023-02-01] MEDS: SODIUM CHLORIDE 0.9% 1000ML 1,000 ML IV SCH (18:18)
[2023-02-01] MEDS: ONDANSETRON INJ 2 MG/ML 2 ML VIAL IV PRN (19:26)
[2023-02-01] MEDS ORDERED: metFORMIN HCL 500 MG TAB PO SCH (21:00)
[2023-02-01] MEDS: ATORVASTATIN 40 MG TAB PO SCH (21:25)
[2023-02-01] MEDS: DOCUSATE SODIUM 100 MG CAP PO SCH (21:25)
[2023-02-01] MEDS: MAGNESIUM OXIDE 400 MG TAB PO SCH (21:25)
[2023-02-01] MEDS: SENNA 8.6 MG TAB PO SCH (21:25)
[2023-02-01] MEDS: UMECLIDINIUM BROMIDE 62.5MCG/BLISTER 7 PUFFS/INHALER INH SCH (21:25)
[2023-02-01] MEDS: FLUTICASONE PROPIONATE NA SPR 16 GM BTL NAE SCH (21:25)
[2023-02-01] MEDS: carvediloL 6.25 MG TAB PO SCH (21:25)
[2023-02-01] MEDS: INSULIN ASPART PER UNIT CHARGE SC SCH ×2 (21:38→23:59)
[2023-02-01] MEDS: ceFAZolin 2000MG 2,000 MG/15 ML SYR IV SCH (23:49)
[2023-02-02] MEDS: INSULIN ASPART PER UNIT CHARGE SC SCH ×5 (04:10→20:45)
[2023-02-02] MEDS: SODIUM CHLORIDE 0.9% 1000ML 1,000 ML IV SCH (04:12)
[2023-02-02] MEDS ORDERED: ACETAMINOPHEN 325 MG TAB PO PRN (04:30)
[2023-02-02] MEDS: ceFAZolin 2000MG 2,000 MG/15 ML SYR IV SCH (06:15)
--- NOTE | 2023-02-02 06:21 | Orthopedic Progress Note ---
Date of Service February 02, 2023 Assessment & Plan (1) Primary osteoarthritis, left shoulder: Plan: Postop day 1 status post left total shoulder arthroplasty PT/OT protocols. Nonweightbearing left upper extremity. DVT prophylaxis-aspirin p.o. daily, SCDs Pain management-patient switched to tramadol secondary to GI upset with a lot of narcotics. We will see how he progresses with the tramadol A.m. labs pending - (Am labs discussed with Carine Thomas PA-C. Mag ordered. Will see how patient is progressing later today. DC planning-outpatient PT upon discharge Admission and Anticipated Discharge Date Admission Date: February 01, 2023 Subjective Postop day 1 Patient sleeping upon arrival but easily awoken. No complaints this morning. Pain is controlled. Denies shortness of breath, chest pain, lightheadedness. He is hoping to go home today. Physical Exam Physical Exam: Dressings are clean, dry, and intact. Sling is in place. He has some residual decree sensation in the left thumb and index finger but is moving the fingers well. He has good wrist range of motion at this time. Cap refills less than 2 seconds. Results & Data Vital Signs (Past 12 Hours) Vital Signs Temp Pulse Resp BP Pulse Ox O2 Del Method O2 Flow Rate 02/02/23 03:01 36.8 C 81 16 152/86 H 95 Nasal Cannula 2 02/01/23 19:30 Nasal Cannula 2 02/01/23 22:22 36.4 C L 64 16 165/71 H 95 Nasal Cannula 2 02/01/23 21:22 67 159/86 H 02/01/23 20:14 36.4 C L 63 16 152/74 H 96 Nasal Cannula 2 02/01/23 19:25 68 16 142/78 H 95 Nasal Cannula 3 02/01/23 18:40 36.4 C L 64 16 137/75 93 Nasal Cannula 3 Laboratory Results Laboratory Results WBC 10.79 K/ul (4.8-10.8) 02/02/23 05:39 RBC 3.78 M/uL (4.70-6.10) L 02/02/23 05:39 Hgb 12.5 g/dl (14.0-18.0) L 02/02/23 05:39 Hct 37.2 % (42.0-52.0) L 02/02/23 05:39 MCV 98.4 fL (80.0-100.0) 02/02/23 05:39 MCH 33.1 pg (25.0-34.0) 02/02/23 05:39 MCHC 33.6 g/dL (32.0-36.0) 02/02/23 05:39 RDW Std Deviation 45.6 fL (36.4-46.3) 02/02/23 05:39 RDW Coeff of Vasquez 12.7 % (11.5-14.5) 02/02/23 05:39 Plt Count 320 K/uL (130-400) 02/02/23 05:39 MPV 9.6 fL (9.4-12.4) 02/02/23 05:39 Immature Gran % (Auto) 0.3 % 02/02/23 05:39 Neut % (Auto) 75.6 % 02/02/23 05:39 Lymph % (Auto) 7.7 % 02/02/23 05:39 Bates % (Auto) 14.8 % 02/02/23 05:39 Eos % (Auto) 1.0 % 02/02/23 05:39 Baso % (Auto) 0.6 % 02/02/23 05:39 Neut # (Auto) 8.15 K/uL (1.40-6.50) H 02/02/23 05:39 Lymph # (Auto) 0.83 K/uL (1.2-3.4) L 02/02/23 05:39 Bates # (Auto) 1.60 K/uL (0.11-0.59) H 02/02/23 05:39 Eos # (Auto) 0.11 K/uL (0-0.50) 02/02/23 05:39 Baso # (Auto) 0.07 K/uL (0-0.2) 02/02/23 05:39 Immature Gran # (Auto) 0.03 K/uL (0.01-0.20) 02/02/23 05:39 Sodium 138 mmol/L (136-145) 02/02/23 05:39 Potassium 4.0 mmol/L (3.5-5.1) 02/02/23 05:39 Chloride 104 mmol/L (98-107) 02/02/23 05:39 Carbon Dioxide 27 mmol/L (21-32) 02/02/23 05:39 Anion Gap 7 (3-11) 02/02/23 05:39 BUN 20 mg/dl (6-23) 02/02/23 05:39 Creatinine 1.01 mg/dl (0.6-1.4) 02/02/23 05:39 Est Cr Clr Drug Dosing 63.2 ml/min 02/02/23 05:39 Est GFR ( Amer) 78.8 ml/min 02/02/23 05:39 Est GFR (Non-Af Amer) 68.0 ml/min 02/02/23 05:39 BUN/Creatinine Ratio 19.8 (10-20) 02/02/23 05:39 Glucose 139 mg/dl (70-99(Fasting)) H 02/02/23 05:39 POC Glucose 118 mg/dl (70-99) H 02/02/23 11:49 Calcium 8.3 mg/dl (8.6-10.3) L 02/02/23 05:39 Magnesium 1.1 mg/dl (1.7-2.4) L 02/02/23 05:39 SARS-CoV-2, RNA, NAAT POSITIVE (NEGATIVE) A* 02/01/23 Unknown Impressions Shoulder X-Ray 02/01/23 16:42 XR shoulder LT min 2V routine CLINICAL HISTORY: Post shoulder surgery TECHNIQUE: 2 views of the left shoulder were obtained. Comparison: Comparison is made to chest radiograph 01/17/2023 FINDINGS: Patient is status post shoulder arthroplasty with expected postsurgical changes including soft tissue swelling and subcutaneous emphysema. No periarticular lucency or hardware fracture is seen. IMPRESSION: Expected postoperative appearance status post placement of shoulder arthroplasty. ACT 112: Negative or not required by law. Electronically signed by: Jose D Montoya M.D. 02/01/2023 5:38 PM
[2023-02-02] MEDS: traMADol HCL 50 MG TABLET PO PRN ×3 (06:22→20:54)
[2023-02-02 06:32] LABS: Basophils # (auto) 0.07 K/uL (0-0.2); Basophils % (auto) 0.6 %; Eosinophils # (auto) 0.11 K/uL (0-0.50); Hematocrit (blood only) 37.2 % (42.0-52.0); Hemoglobin 12.5 g/dl (14.0-18.0); Immature Granulocytes # (auto) 0.03 K/uL (0.01-0.20); Immature Granulocytes % (auto) 0.3 %; Lymphocytes # (auto) 0.83 K/uL (1.2-3.4); Lymphocytes % (auto) 7.7 %; Mean Corpuscular Hemoglobin 33.1 pg (25.0-34.0); Mean Corpuscular Hgb Conc 33.6 g/dL (32.0-36.0); Mean Corpuscular Volume 98.4 fL (80.0-100.0); Mean Platelet Volume 9.6 fL (9.4-12.4); Monocytes % (auto) 14.8 %; Neutrophils # (auto) 8.15 K/uL (1.40-6.50); Neutrophils % (auto) 75.6 %; Platelet Count 320 K/uL (130-400); RDW Coefficient of Variation 12.7 % (11.5-14.5); RDW Standard Deviation 45.6 fL (36.4-46.3); Red Blood Count 3.78 M/uL (4.70-6.10); White Blood Count 10.79 K/ul (4.8-10.8)
[2023-02-02 06:46] LABS: BUN Creatinine Ratio 19.8 (10-20); Calcium 8.3 mg/dl (8.6-10.3); Creatinine Clr Calc Pharmacy 63.2 ml/min; Est GFR (African American) 78.8 ml/min
[2023-02-02] MEDS: carvediloL 6.25 MG TAB PO SCH ×2 (07:31→20:44)
[2023-02-02] MEDS: DOCUSATE SODIUM 100 MG CAP PO SCH ×2 (07:31→20:45)
[2023-02-02] MEDS: MAGNESIUM OXIDE 400 MG TAB PO SCH ×2 (07:31→20:44)
[2023-02-02] MEDS: ADVANCED PROBIOTIC 1250 MG CAPSULE PO SCH (07:31)
[2023-02-02] MEDS: CYANOCOBALAMIN (B-12) 500 MCG TABLET PO SCH (07:32)
[2023-02-02] MEDS: FINASTERIDE 5 MG TAB PO SCH (07:32)
[2023-02-02] MEDS: TAMSULOSIN HCL 0.4 MG CAP PO SCH (07:32)
[2023-02-02] MEDS: ASPIRIN 81 MG ECTAB PO SCH (07:32)
[2023-02-02] MEDS: FLUTICASONE/VILANTEROL 200/25MCG 14 PUFFS/INHALER INH SCH (07:32)
[2023-02-02] MEDS: PANTOprazole 40 MG TAB PO SCH (07:32)
[2023-02-02] MEDS: MULTIVITAMIN TAB PO SCH (07:32)
[2023-02-02] MEDS: FLUTICASONE PROPIONATE NA SPR 16 GM BTL NAE SCH ×2 (07:33→20:45)
--- NOTE | 2023-02-02 08:29 | Hospitalist Consultation ---
Date of Consultation February 02, 2023 Assessment & Plan (1) Primary osteoarthritis, left shoulder: POD # 1 s/p Left Total Shoulder Arthroplasty, Distal Clavicle Excision, excision multiloculated ganglion cyst acromioclavicular joint, biceps tenodesis, subacromial decompression and subacromial bursectomy, excision multiple calcific deposits rotator cuff. (Left) - Rebel Gallego MD. EBL 75cc Pain control/bowel regimen/PT/OT per primary service WBC wnl, hgb stable on repeat compared to pre-op labs. Kidney function remains stable on BMP and BPs acceptable this morning and losartan was continued Primary switched pain medications to limit reflux issues Patient developed lightheadedness/low BP working w/ therapy. BSG 201, no palpitations/cp/sob but placed on 2L --> currently on 1L. Does have some wheezing on examination, prior low mags. No further lightheadedness back in bed - BP 134/78 Checking mag/1gm IV replacement ordered in meantime -- additional pending lab value If not able to wean back off oxygen, check CXR. (recent COVID infection last month) Monitor ambulation in halls this afternoon/O2 use. If any further symptoms, checking orthostatic vitals (patient currently pushing oral fluids for dry mm on exam). If no further symptoms/BPs controlled this afternoon w/ walking in the halls can consider discharge. If not, would recommend keeping overnight to monitor. If staying overnight, AM losartan placed on hold as well (2) Nonischemic cardiomyopathy: follows closely with cardiology pre-op clearance noted No CP/SOb at present but placed on O2 for comfort after episode this AM. (3) GERD (gastroesophageal reflux disease): continue PPI -- protonix while inpatient (4) Asthma: noted continues usual inhalers some wheezing on exam/low mags in past checking mag/IV replacement as above incentive spirometer Wean O2 as able Consider CXR if needed/unable to wean off O2 (5) Benign essential hypertension: continues on carvedilol 6.25mg BID, losartan 100mg daily Bps dropped this AM but had been stable prior, suspect combo pain/dehydration currently pushing water, BPs improved. Holding off bolus but can check orthostatics this afternoon if recurrance of symptoms/etc Hold losartan in AM if remaining inpatient Monitor BPs (6) Benign prostatic hyperplasia with urinary obstruction and other lower urinary tract symptoms: (7) Diabetes mellitus: Most recent A1c 7.7 Home metformin continued by primary SSI added while inpatient, BSGs acceptable (201 following eating when lightheaded) Monitor BSGs (8) Chronic combined systolic (congestive) and diastolic (congestive) heart failure: Does not appear volume overloaded at present, actually dry Most recent ECHO [facility] w/ hospitalization for COVID w/ LVEF 30-35%, mild diffuse LV hypokinesis. Est PASP 58 Follows w/ cards -- pre-op clearance noted Judicious use of fluids noted by cards during perioperative period -- pushing oral/holding off IVF in meantime Plan Thank you for allowing hospitalist service to participate in the care of Mr Fernandes. If BPs stable/no symptoms w/ ambulating and off oxygen this afternoon can discharge home. Hospitalist service will follow along at this time to monitor for any issues if remains inpatient. Please call with any questions/concerns. Supervising Physician Co-Signing Physician Notes The patient was seen by me. The chart was reviewed. Case discussed with TENA Greene. Agree with assessment and plan History of Present Illness Reason for Consultation: med management Requesting Physician: Dr Gallego Attending Physician: Rebel Gallego MD History of Present Illness 82yo male with PMHx significant for mild nonobstructive CAD, nonischemic cardiomyopathy, HTN, COPD, DM II, GERD presented for left shoulder surgery with Dr Gallego 02/01. EBL 75cc Was admittted for [facility] in December for COVID/Sepsis, given prednisone and IV antibiotics/O2 and weaned before discharge with prednisone/augmentin. Repeat CXR following w/ resolution of pneumonia per PCP notes. Patient was up with therapy and had a little lightheadedness, SBP from 150s to 90s, BSG 201 after eating and given 4u insulin. No palpations/chest pain/shortness of breath reported but placed on 2L NC for comfort. Currently on 1L NC. Has some wheezing on exam, discussed checking mag/replacement. /patient reporing on magnesium at baseline, and dry mouth with his inhalers- currently pushing third container of water and reports feeling better/no symptoms at rest. Discussed monitoring up/walking and if no further symptoms can discharge today vs monitoring overnight. He follows w/ cardiology closely. Pain well controlled to his shoulder, sensation intact. No fevers/chills, nausea/abdominal pain. No palpitations/fluttering sensation. Questions/concerns addressed at this time. Allergies Allergy/AdvReac Type Severity Reaction Status Date / Time levofloxacin Allergy Severe Facial Verified 02/01/23 09:40 swelling lisinopril Allergy Unknown ANGIOEDEMA Verified 02/01/23 09:40 hydrocodone [From Vicodin] AdvReac Severe Gastrointestinal Verified 02/01/23 09:40 Upset oxycodone [From OxyContin] AdvReac Severe Gastrointestinal Verified 02/01/23 09:40 Upset cephalexin AdvReac Unknown Gastrointestinal Verified 02/01/23 09:40 Upset clorazepate dipotassium AdvReac Unknown HYPERACTIVI Verified 02/01/23 09:40 [From Tranxene T-Tab] TY doxepin [From Sinequan] AdvReac Unknown Drowsiness Verified 02/01/23 09:40 Home Medications Medication Instructions Recorded Confirmed Type Lactobacil.acidophilus-Bifido.animalis 1 cap PO QAM #90 caps 04/15/19 02/01/23 Rx 5 billion cell sprinkle capsule (Probiotic) aspirin 81 mg tablet,delayed 81 mg PO QAM #90 tabs 04/15/19 02/01/23 Rx release magnesium oxide 400 mg PO BID #180 caps 04/15/19 02/01/23 Rx Incentive Spirometer #1 ea 06/12/20 01/27/23 Rx tamsulosin 0.4 mg capsule (Flomax) 0.4 mg PO QAM 03/22/21 02/01/23 History triamcinolone acetonide 55 mcg 2 spray intranasal BID 08/17/21 02/01/23 History nasal spray aerosol (Nasacort) ipratropium 0.5 mg-albuterol 3 mg 3 ml inhalation Q4H PRN COPD #360 09/15/21 02/01/23 Rx (2.5 mg base)/3 mL nebulization mL soln albuterol sulfate 90 mcg/actuation 2 puff inhalation Q4H PRN 12/29/21 02/01/23 Rx aerosol inhaler (Ventolin HFA) increased cough, shortness of breath or wheezing #18 grams losartan 100 mg tablet 100 mg PO QAM #90 tabs 04/27/22 02/01/23 Rx budesonide-formoterol HFA 160 1 inh inhalation BID #10.2 grams 06/17/22 02/01/23 Rx mcg-4.5 mcg/actuation aerosol inhaler (Symbicort) metformin 500 mg tablet 1,000 mg PO BID #360 tabs 10/21/22 02/01/23 Rx carvedilol 6.25 mg tablet 6.25 mg PO BID #180 tabs 10/31/22 02/01/23 Rx atorvastatin 40 mg tablet 40 mg PO HS #90 tabs 12/15/22 02/01/23 Rx omeprazole 40 mg capsule,delayed 40 mg PO QAM #90 caps 12/15/22 02/01/23 Rx release cyanocobalamin (vitamin B-12) 1,000 mcg PO QAM 12/29/22 02/01/23 History 1,000 mcg tablet umeclidinium 62.5 mcg/actuation 1 inh inhalation QPM 12/29/22 02/01/23 History blister powder for inhalation (Incruse Ellipta) finasteride 5 mg tablet 5 mg PO QAM #90 tabs 02/01/23 02/01/23 Rx acetaminophen 500 mg capsule 1,000 mg PO Q8H pain 14 days #84 02/02/23 Rx caps polyethylene glycol 3350 17 gram 17 g PO DAILY PRN constipation #5 02/02/23 Rx oral powder packet (Miralax) ea tramadol 50 mg tablet 50 - 100 mg PO Q6H PRN pain #24 02/02/23 Rx tabs Patient History Medical History Allergic rhinitis Asthma Benign essential hypertension Benign prostatic hyperplasia with urinary obstruction and other lower urinary tract symptoms Bronchiectasis Chronic anemia Chronic combined systolic (congestive) and diastolic (congestive) heart failure Chronic sinusitis Depression Diabetes mellitus NIDDM Generalized osteoarthritis of multiple sites GERD (gastroesophageal reflux disease) Hearing loss Hyperlipidemia Hypogammaglobulinemia Immune deficiency disorder Nonischemic cardiomyopathy Surgical History H/O colonoscopy History of arthroscopy of shoulder History of bronchoscopy History of esophagogastroduodenoscopy (EGD) History of prostate biopsy History of total bilateral knee replacement (TKR) History of total left hip arthroplasty S/P inguinal hernia repair Status post laparoscopic cholecystectomy Family History Father Alzheimer disease Coronary heart disease Mother Breast cancer Diabetes Hypertension Sister Diabetes Coronary heart disease Brother Diabetes Heart disease Denies family history of Ovarian cancer Prostate cancer Myocardial infarction Colorectal cancer Social History Smoking Status: Former smoker Tobacco Type: Cigarettes Age Started Using Tobacco: 13; Age Quit Using Tobacco: 21; packs per day: 0.5; Smoking End Date: Quit age 18 (tobacco use ages [age]); Second Hand Exposure: No; Do You Dip or Chew Tobacco: No; Tobacco Cessation Education Requested by Patient: No Hx Alcohol Use: Yes Alcohol type: beer Alcohol Intake Frequency: 2-4 x/Month Hx Substance Use: No Preferred Language: [place] Communication Ability: Effective Visual Impairment: No Limitations Hearing Ability: Use of Hearing Aid Teacher Instrumental Required: No Beliefs That Will Affect Care: None marital status: Current Living Situation: Spouse current occupational status: employed and retired 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 How many Children do You have: 2 Other Information That Helps Us Care for You: No Feels Safe at Home: Yes Safety Concerns: Feels Safe At This Time Childhood Exposure to Second-Hand Smoke: No Diet: regular caffeine: Yes (coffee) during the past year weight has: remained stable Dental Care, Regularly: Yes Physical Activity Frequency: Daily Seatbelt Use: always Sunscreen Use: No Do you think of yourself as: straight/heterosexual Gender Identity: Male Assistive Devices: Cane and Walker Review of Systems Review of Systems: All systems reviewed & are unremarkable except as noted in HPI & below Physical Exam Physical Exam: General: WD/WN male sitting up in bed, NAD, at bedside HEENT: head normocephalic, atraumatic, mm slightly dry Resp: expiratory wheezing posterior bases, R>L, occassional cough, on 1L NC, no tachypneic, no rales CV: regular rate/rhythm, no significant m/r/g, no calf tenderness GI: +BS, soft/nt : no allan MSK/Neuro: dressing to LEFT shoulder c/d/i, sling in place, fingers mobile, some numbness to thumb, radial pulse palpable Psych: AOX3, cooperative with examination Skin: warm, dry Results & Data Results & Data Vital Signs (Past 12 Hours) Vital Signs Temp Pulse Pulse Resp BP Pulse Ox O2 Del Method 02/02/23 07:36 Room Air 02/02/23 07:17 36.9 C 89 18 159/87 H 94 Nasal Cannula 02/02/23 06:51 87 18 90 Nasal Cannula 02/02/23 06:27 91 Nasal Cannula 02/02/23 06:26 88 L Room Air 02/02/23 03:01 36.8 C 81 16 152/86 H 95 Nasal Cannula 02/01/23 22:22 36.4 C L 64 16 165/71 H 95 Nasal Cannula 02/01/23 21:22 67 159/86 H O2 Flow Rate 02/02/23 07:36 02/02/23 07:17 2 02/02/23 06:51 2 02/02/23 06:27 2 02/02/23 06:26 02/02/23 03:01 2 02/01/23 22:22 2 02/01/23 21:22 Laboratory Results 02/02/23 02/02/23 02/02/23 Range/Units 11:49 09:37 08:09 WBC (4.8-10.8) K/ul RBC (4.70-6.10) M/uL Hgb (14.0-18.0) g/dl Hct (42.0-52.0) % MCV (80.0-100.0) fL MCH (25.0-34.0) pg MCHC (32.0-36.0) g/dL RDW Std Deviation (36.4-46.3) fL RDW Coeff of Vasquez (11.5-14.5) % Plt Count (130-400) K/uL MPV (9.4-12.4) fL Immature Gran % (Auto) % Neut % (Auto) % Lymph % (Auto) % [place]mort[place] % (Auto) % Eos % (Auto) % Baso % (Auto) % Neut # (Auto) (1.40-6.50) K/uL Lymph # (Auto) (1.2-3.4) K/uL [place] # (Auto) (0.11-0.59) K/uL Eos # (Auto) (0-0.50) K/uL Baso # (Auto) (0-0.2) K/uL Immature Gran # (Auto) (0.01-0.20) K/uL Sodium (136-145) mmol/L Potassium (3.5-5.1) mmol/L Chloride (98-107) mmol/L Carbon Dioxide (21-32) mmol/L Anion Gap (3-11) BUN (6-23) mg/dl Creatinine (0.6-1.4) mg/dl Est Cr Clr Drug Dosing ml/min Est GFR ( Amer) ml/min Est GFR (Non-Af Amer) ml/min BUN/Creatinine Ratio (10-20) Glucose (70-99(Fasting)) mg/dl POC Glucose 118 H 201 H 144 H (70-99) mg/dl Calcium (8.6-10.3) mg/dl SARS-CoV-2, RNA, NAAT (NEGATIVE) 02/02/23 02/02/23 02/02/23 Range/Units 05:39 05:39 04:06 WBC 10.79 (4.8-10.8) K/ul RBC 3.78 L (4.70-6.10) M/uL Hgb 12.5 L (14.0-18.0) g/dl Hct 37.2 L (42.0-52.0) % MCV 98.4 (80.0-100.0) fL MCH 33.1 (25.0-34.0) pg MCHC 33.6 (32.0-36.0) g/dL RDW Std Deviation 45.6 (36.4-46.3) fL RDW Coeff of Vasquez 12.7 (11.5-14.5) % Plt Count 320 (130-400) K/uL MPV 9.6 (9.4-12.4) fL Immature Gran % (Auto) 0.3 % Neut % (Auto) 75.6 % Lymph % (Auto) 7.7 % [place]mort[place] % (Auto) 14.8 % Eos % (Auto) 1.0 % Baso % (Auto) 0.6 % Neut # (Auto) 8.15 H (1.40-6.50) K/uL Lymph # (Auto) 0.83 L (1.2-3.4) K/uL [place] # (Auto) 1.60 H (0.11-0.59) K/uL Eos # (Auto) 0.11 (0-0.50) K/uL Baso # (Auto) 0.07 (0-0.2) K/uL Immature Gran # (Auto) 0.03 (0.01-0.20) K/uL Sodium 138 (136-145) mmol/L Potassium 4.0 (3.5-5.1) mmol/L Chloride 104 (98-107) mmol/L Carbon Dioxide 27 (21-32) mmol/L Anion Gap 7 (3-11) BUN 20 (6-23) mg/dl Creatinine 1.01 (0.6-1.4) mg/dl Est Cr Clr Drug Dosing 63.2 ml/min Est GFR ( Amer) 78.8 ml/min Est GFR (Non-Af Amer) 68.0 ml/min BUN/Creatinine Ratio 19.8 (10-20) Glucose 139 H (70-99(Fasting)) mg/dl POC Glucose 135 H (70-99) mg/dl Calcium 8.3 L (8.6-10.3) mg/dl SARS-CoV-2, RNA, NAAT (NEGATIVE) 02/01/23 02/01/23 02/01/23 Range/Units Unknown 23:51 20:43 WBC (4.8-10.8) K/ul RBC (4.70-6.10) M/uL Hgb (14.0-18.0) g/dl Hct (42.0-52.0) % MCV (80.0-100.0) fL MCH (25.0-34.0) pg MCHC (32.0-36.0) g/dL RDW Std Deviation (36.4-46.3) fL RDW Coeff of Vasquez (11.5-14.5) % Plt Count (130-400) K/uL MPV (9.4-12.4) fL Immature Gran % (Auto) % Neut % (Auto) % Lymph % (Auto) % [place] % (Auto) % Eos % (Auto) % Baso % (Auto) % Neut # (Auto) (1.40-6.50) K/uL Lymph # (Auto) (1.2-3.4) K/uL [place] # (Auto) (0.11-0.59) K/uL Eos # (Auto) (0-0.50) K/uL Baso # (Auto) (0-0.2) K/uL Immature Gran # (Auto) (0.01-0.20) K/uL Sodium (136-145) mmol/L Potassium (3.5-5.1) mmol/L Chloride (98-107) mmol/L Carbon Dioxide (21-32) mmol/L Anion Gap (3-11) BUN (6-23) mg/dl Creatinine (0.6-1.4) mg/dl Est Cr Clr Drug Dosing ml/min Est GFR ( Amer) ml/min Est GFR (Non-Af Amer) ml/min BUN/Creatinine Ratio (10-20) Glucose (70-99(Fasting)) mg/dl POC Glucose 167 H 172 H (70-99) mg/dl Calcium (8.6-10.3) mg/dl SARS-CoV-2, RNA, NAAT POSITIVE A* (NEGATIVE) 02/01/23 Range/Units 16:37 WBC (4.8-10.8) K/ul RBC (4.70-6.10) M/uL Hgb (14.0-18.0) g/dl Hct (42.0-52.0) % MCV (80.0-100.0) fL MCH (25.0-34.0) pg MCHC (32.0-36.0) g/dL RDW Std Deviation (36.4-46.3) fL RDW Coeff of Vasquez (11.5-14.5) % Plt Count (130-400) K/uL MPV (9.4-12.4) fL Immature Gran % (Auto) % Neut % (Auto) % Lymph % (Auto) % [place] % (Auto) % Eos % (Auto) % Baso % (Auto) % Neut # (Auto) (1.40-6.50) K/uL Lymph # (Auto) (1.2-3.4) K/uL [place] # (Auto) (0.11-0.59) K/uL Eos # (Auto) (0-0.50) K/uL Baso # (Auto) (0-0.2) K/uL Immature Gran # (Auto) (0.01-0.20) K/uL Sodium (136-145) mmol/L Potassium (3.5-5.1) mmol/L Chloride (98-107) mmol/L Carbon Dioxide (21-32) mmol/L Anion Gap (3-11) BUN (6-23) mg/dl Creatinine (0.6-1.4) mg/dl Est Cr Clr Drug Dosing ml/min Est GFR ( Amer) ml/min Est GFR (Non-Af Amer) ml/min BUN/Creatinine Ratio (10-20) Glucose (70-99(Fasting)) mg/dl POC Glucose 117 H (70-99) mg/dl Calcium (8.6-10.3) mg/dl SARS-CoV-2, RNA, NAAT (NEGATIVE) Diagnostic Findings Shoulder X-Ray 02/01/23 16:42 XR shoulder LT min 2V routine CLINICAL HISTORY: Post shoulder surgery TECHNIQUE: 2 views of the left shoulder were obtained. Comparison: Comparison is made to chest radiograph 01/17/2023 FINDINGS: Patient is status post shoulder arthroplasty with expected postsurgical changes including soft tissue swelling and subcutaneous emphysema. No periarticular lucency or hardware fracture is seen. IMPRESSION: Expected postoperative appearance status post placement of shoulder arthroplasty. ACT 112: Negative or not required by law. Electronically signed by: Jose D Montoya M.D. 02/01/2023 5:38 PM PG Care Time/CCT Total # of Minutes Spent Total Time Spent with Patient: Total time spent is greater than 50% in coordination of care (as documented) at patient's floor/unit and/or counseling patient: Coding Level of Care Code 82622 IN/OBS CONSULT LVL 3,45M Diagnoses Primary osteoarthritis, left shoulder M19.012 Nonischemic cardiomyopathy I42.8 GERD (gastroesophageal reflux disease) K21.9 Esophagitis presence: esophagitis presence not specified Asthma J45.909 Benign essential hypertension I10 Benign prostatic hyperplasia with urinary obstruction and other lower urinary tract symptoms N40.1; N13.8 Diabetes mellitus E11.9 Diabetes mellitus complication status: without complication Diabetes mellitus usp insulin use: without usp use Diabetes mellitus type: type 2 Chronic combined systolic (congestive) and diastolic (congestive) heart failure I50.42 (3) GERD (gastroesophageal reflux disease) Esophagitis presence: esophagitis presence not specified Qualified Code(s): K21.9 - Gastro-esophageal reflux disease without esophagitis (7) Diabetes mellitus Diabetes mellitus complication status: without complication Diabetes mellitus usp insulin use: without usp use Diabetes mellitus type: type 2 Qualified Code(s): E11.9 - Type 2 diabetes mellitus without complications
[2023-02-02] MEDS ORDERED: LOSARTAN POTASSIUM 50 MG TAB PO SCH (09:00)
[2023-02-02] MEDS ORDERED: MAGNESIUM SULFATE / D5W 1 GM/100 ML BAG IV ONE (11:57)
[2023-02-02 12:28] LABS: Magnesium 1.1 mg/dl (1.7-2.4)
--- NOTE | 2023-02-02 12:35 | Communication Note ---
Date of Service: February 02, 2023 Mag returned low as expected at 1.1 Had already ordered 1gm IV, additional 4gm IV ordered If symptoms resolved again as noted in consultation after mag replacement, can consider dc this evening vs monitoring overnight. Defer to ortho for disposition on repeat eval w/ Iain as discussed w/ krishna this afternoon.
[2023-02-02] MEDS: MAGNESIUM SULFATE / D5W 1 GM/100 ML BAG IV SCH ×4 (13:16→19:23)
--- NOTE | 2023-02-02 13:51 | Pharmacy Report ---
Pharmacy Glycemic Short Note 2 - Date of Service February 02, 2023 - Glycemic Short BSG Results (Last 24 hours): 02/01/23 02/01/23 02/01/23 16:37 20:43 23:51 Glucose POC Glucose 117 H 172 H 167 H 02/02/23 02/02/23 02/02/23 04:06 05:39 08:09 Glucose 139 H POC Glucose 135 H 144 H 02/02/23 02/02/23 09:37 11:49 Glucose POC Glucose 201 H 118 H OUTPATIENT ANTIDIABETIC REGIMEN: * Metformin 1g PO BID * A1c = 7.7% ASSESSMENT: * Josh is POD #1 left total shoulder arthroplasty. * Blood sugars have been well controlled with out basal insulin. * Patient is tolerating an oral diet and renal function is at baseline. Will resume metformin. Loosen Novolog carb coverage - may be able to forgo and use correctional insulin only. * Possible discharge today. PLAN FOR INPATIENT GLYCEMIC CONTROL: * Resume metformin 1 g PO BID with meals * Basal insulin * None * Bolus insulin * NovoLog per scale ACHS or Q6hrs while NPO * Goal Range: Low 110 mg/dL - High 140 mg/dL * Correction Factor: 30 mg/dL/unit * Nutritional / Prandial insulin per carb ratio of 1 unit per 20 grams CHO consumed
--- NOTE | 2023-02-02 16:32 | Communication Note ---
Date of Service: February 02, 2023 Pt sleeping upon entering room. Easily awoken. States he's a bit unsteady on his feet yet. Plan is to continue to monitor overnight. Recheck Magnesium in the AM and continue PT. Pain controlled at present time.
[2023-02-02] MEDS: metFORMIN HCL 500 MG TAB PO SCH (17:20)
[2023-02-02] MEDS: ONDANSETRON INJ 2 MG/ML 2 ML VIAL IV PRN (17:47)
[2023-02-02] MEDS: SENNA 8.6 MG TAB PO SCH (20:44)
[2023-02-02] MEDS: UMECLIDINIUM BROMIDE 62.5MCG/BLISTER 7 PUFFS/INHALER INH SCH (20:45)
[2023-02-02] MEDS: ATORVASTATIN 40 MG TAB PO SCH (20:45)
[2023-02-03] MEDS: traMADol HCL 50 MG TABLET PO PRN (02:24)
--- NOTE | 2023-02-03 06:20 | Orthopedic Progress Note ---
Date of Service February 03, 2023 Assessment & Plan (1) Primary osteoarthritis, left shoulder: Plan: Postop day 2 status post left total shoulder arthroplasty PT/OT protocols. Nonweightbearing left upper extremity. DVT prophylaxis-aspirin p.o. daily, SCDs Pain management-tramadol working well for his pain control. A.m. labs pending-hypomagnesemia being treated. Await morning labs to reassess. Patient was having some unsteadiness with his gait yesterday. We will see how he progresses with physical therapy. If he is improved and his magnesium level has improved, plan for possible discharge to home today. Await hospitalist assessment this morning. Appreciate their input. DC planning-outpatient PT upon discharge Admission and Anticipated Discharge Date Admission Date: February 01, 2023 Subjective Postop day 2 Patient sleeping upon arrival. Easily awoken. No complaints this morning. States that the tramadol is helping with his pain control. He states he feels a little bit better this morning. Physical Exam Physical Exam: Dressings are clean, dry, and intact. Sling is in place. Numbness in the fingers essentially resolving and he is moving his fingers well. Cap refill is less than 2 seconds Results & Data Vital Signs (Past 12 Hours) Vital Signs Temp Pulse Resp BP Pulse Ox O2 Del Method 02/02/23 20:55 Room Air 02/02/23 20:32 37.1 C 72 16 134/70 94 Room Air
[2023-02-03 06:55] LABS: Calcium 8.4 mg/dl (8.6-10.3); Creatinine Clr Calc Pharmacy 72.5 ml/min; Est GFR (African American) 91.4 ml/min; Est GFR (Non-African American) 78.9 ml/min; Magnesium 1.8 mg/dl (1.7-2.4); Potassium 4.2 mmol/L (3.5-5.1)
[2023-02-03] MEDS: ADVANCED PROBIOTIC 1250 MG CAPSULE PO SCH (07:21)
[2023-02-03] MEDS: FINASTERIDE 5 MG TAB PO SCH (07:22)
[2023-02-03] MEDS: TAMSULOSIN HCL 0.4 MG CAP PO SCH (07:22)
[2023-02-03] MEDS: MULTIVITAMIN TAB PO SCH (07:22)
[2023-02-03] MEDS: PANTOprazole 40 MG TAB PO SCH (07:23)
[2023-02-03] MEDS: CYANOCOBALAMIN (B-12) 500 MCG TABLET PO SCH (07:23)
[2023-02-03] MEDS: ASPIRIN 81 MG ECTAB PO SCH (07:23)
[2023-02-03] MEDS: carvediloL 6.25 MG TAB PO SCH ×2 (07:23→19:49)
[2023-02-03] MEDS: FLUTICASONE PROPIONATE NA SPR 16 GM BTL NAE SCH ×2 (07:24→19:49)
[2023-02-03] MEDS: MAGNESIUM OXIDE 400 MG TAB PO SCH ×2 (07:24→19:50)
[2023-02-03] MEDS: FLUTICASONE/VILANTEROL 200/25MCG 14 PUFFS/INHALER INH SCH (07:26)
[2023-02-03] MEDS: DOCUSATE SODIUM 100 MG CAP PO SCH ×2 (07:28→19:49)
--- NOTE | 2023-02-03 07:28 | Hospitalist Progress Note ---
Date of Service February 03, 2023 Assessment & Plan (1) Primary osteoarthritis, left shoulder: Plan: POD # 1 s/p Left Total Shoulder Arthroplasty, Distal Clavicle Excision, excision multiloculated ganglion cyst acromioclavicular joint, biceps tenodesis, subacromial decompression and subacromial bursectomy, excision multiple calcific deposits rotator cuff. (Left) - Rebel Gallego MD. EBL 75cc Pain control/bowel regimen/PT/OT per primary service WBC wnl, hgb stable on repeat compared to pre-op labs. Primary switched pain medications to limit reflux issues -- CXR on repeat no acute process Now on room air Mag improved w/ 5gm IV to 1.8 and stable. Rec continue PO BID at discharge (had only been taking once daily) NSS 250cc bolus this am for + orthostatics Improvement in symptoms w / ambulation, however suspect tramadol use contributing as well REC TO DECREASED 25-50mg as needed given suspect symptoms from such Messaged ortho regarding such. patient had been receiving 100mg per dose at a time and pain prior reported well controlled Stable for dc. Instructed patient to monitor BP in AM - if low/symptoms, hold losartan but otherwise can continue (2) Hypomagnesemia: Plan: 1.1 on check -- 5gm IV replacement ordered 1.8 on am labs -- continue PO mag supplementation TWICE daily at d/c (3) Hypoxia: Plan: post op -- ? medication related incentive spirometer now on RA CXR this AM NEGATIVE (4) Nonischemic cardiomyopathy: Plan: follows closely with cardiology pre-op clearance noted No CP reported (5) GERD (gastroesophageal reflux disease): Plan: continue PPI -- protonix while inpatient (6) Asthma: Plan: noted continues usual inhalers some wheezing on exam but improved w/ mag replacement albuterol prn back on RA, CXR negative (7) Benign essential hypertension: Plan: continues on carvedilol 6.25mg BID, Losartan held this morning (had been given AM 02/02, then hypotension) BPs improved/stable but continued to hold losartan this morning and discussed w/ patient to monitor BP in AM and if no symptoms with reduction in pain medicatio ns and BP stable can resume tomorrow (8) Benign prostatic hyperplasia with urinary obstruction and other lower urinary tract symptoms: (9) Diabetes mellitus: Plan: Most recent A1c 7.7 Home metformin continued by primary SSI added while inpatient, BSGs acceptable (10) Chronic combined systolic (congestive) and diastolic (congestive) heart failure: Plan: Does not appear volume overloaded at present, actually dry Most recent ECHO GLH w/ hospitalization for COVID w/ LVEF 30-35%, mild diffuse LV hypokinesis. Est PASP 58 Follows w/ cards -- pre-op clearance noted Judicious use of fluids noted by cards during perioperative period -- did get 250cc bolus this morning for +orthostatics. Otherwise instructed to push oral fluids/gatorade No volume overload on exam Plan Thank you for allowing hospitalist to participate in the care of Mr Fernandes. Hospitalist group rec decreased tramadol at d/c and pt to monitor BP at home tomorrow morning and resume his losartan if no issues. otherwise stable for dc Please call with any questions/concerns. Admission and Anticipated Discharge Date Admission Date: February 01, 2023 Supervising Physician Co-Signing Physician Notes The patient was not seen by me. The chart was reviewed. Case discussed with TENA Greene. Agree with assessment and plan Subjective eval this morning around 11, slight drop BP/ortho +. 250cc bolus provided. EKG NSR/PACs. Mag resolved Eval w/ at bedside, sitting up at side of bed. Much improvement in symptoms after NSS bolus completed -- feeling able to go home unless we feel otherwise. Recs to continue PO mag twice daily at discharge to prevent issues, if having diarrhea to discuss cards/pcp about slow mag in future. no fever/chills, chest pain pain well controlled but discussed cutting tramadol in half to 25mg as needed f or pain to prevent issues -- he notes he had been getting 100mg at a time. Will message orthopedics about decreasing this and encouraged patient to take 25-50mg as needed at home. To monitor BP in AM -- typically SBP 140s-- if low, hold losartan additional day and resume. Messaged ortho regarding concerns for pain meds/adjustment at dc but medically stable at present for dc. Questions/concerns addressed. Physical Exam Physical Exam: General: WD/WN male sitting up at side of bed, present HEENT: head normocephalic, mm improved, trachea midline Resp: no distress, faint expiratory wheezing, no cough, on room air CV: RRR, no significant m/r/g, no calf tenderness GI: +BS, soft/nt : no allan MSK/Neuro: dressing to LEFT shoulder c/d/i, sling in place, fingers mobile, some numbness to thumb resolved essentially, radial pulse palpable Psych: AOX3, cooperative with examination Skin: warm, dry Results & Data Results & Data Vital Signs (Past 12 Hours) Vital Signs Temp Pulse Resp BP Pulse Ox O2 Del Method O2 Flow Rate 02/03/23 07:09 93 Nasal Cannula 2 02/03/23 07:09 36.5 C 74 16 126/68 85 L Room Air 02/02/23 20:55 Room Air 02/02/23 20:32 37.1 C 72 16 134/70 94 Room Air Laboratory Results 02/03/23 02/03/23 02/02/23 Range/Units 07:59 06:07 20:30 Sodium 133 L (136-145) mmol/L Potassium 4.2 (3.5-5.1) mmol/L Chloride 101 (98-107) mmol/L Carbon Dioxide 27 (21-32) mmol/L Anion Gap 5 (3-11) BUN 22 (6-23) mg/dl Creatinine 0.88 (0.6-1.4) mg/dl Est Cr Clr Drug Dosing 72.5 ml/min Est GFR ( Amer) 91.4 ml/min Est GFR (Non-Af Amer) 78.9 ml/min BUN/Creatinine Ratio 25.0 H (10-20) Glucose 159 H (70-99(Fasting)) mg/dl POC Glucose 166 H 189 H (70-99) mg/dl Calcium 8.4 L (8.6-10.3) mg/dl Magnesium 1.8 (1.7-2.4) mg/dl 02/02/23 02/02/23 02/02/23 Range/Units 17:01 11:49 05:39 Sodium (136-145) mmol/L Potassium (3.5-5.1) mmol/L Chloride (98-107) mmol/L Carbon Dioxide (21-32) mmol/L Anion Gap (3-11) BUN (6-23) mg/dl Creatinine (0.6-1.4) mg/dl Est Cr Clr Drug Dosing ml/min Est GFR ( Amer) ml/min Est GFR (Non-Af Amer) ml/min BUN/Creatinine Ratio (10-20) Glucose (70-99(Fasting)) mg/dl POC Glucose 172 H 118 H (70-99) mg/dl Calcium (8.6-10.3) mg/dl Magnesium 1.1 L (1.7-2.4) mg/dl Diagnostic Findings Chest X-Ray 02/03/23 07:27 XR chest 1V portable CLINICAL HISTORY: eval pulm edema TECHNIQUE: Single frontal radiograph of the chest was obtained. Comparison: Comparison is made to chest radiograph 01/17/2023 FINDINGS: Postsurgical changes are seen of left shoulder arthroplasty. Calcified aortic knob is seen. The lungs are clear. No evidence of pleural effusion or pneumothorax. IMPRESSION: No acute abnormalities and in particular no evidence of pulmonary edema. ACT 112: Negative or not required by law. Electronically signed by: Jose D Montoya M.D. 02/03/2023 8:32 AM PG Care Time/CCT Total # of Minutes Spent Total Time Spent with Patient: Total time spent is greater than 50% in coordination of care (as documented) at patient's floor/unit and/or counseling patient: Coding Level of Care Code 95089 SUB INP/OBS CARE 3/50MIN Diagnoses Primary osteoarthritis, left shoulder M19.012 Hypomagnesemia E83.42 Hypoxia R09.02 Nonischemic cardiomyopathy I42.8 GERD (gastroesophageal reflux disease) K21.9 Esophagitis presence: esophagitis presence not specified Asthma J45.909 Benign essential hypertension I10 Benign prostatic hyperplasia with urinary obstruction and other lower urinary tract symptoms N40.1; N13.8 Diabetes mellitus E11.9 Diabetes mellitus complication status: without complication Diabetes mellitus chcf insulin use: without chcf use Diabetes mellitus type: type 2 Chronic combined systolic (congestive) and diastolic (congestive) heart failure I50.42 (5) GERD (gastroesophageal reflux disease) Esophagitis presence: esophagitis presence not specified Qualified Code(s): K21.9 - Gastro-esophageal reflux disease without esophagitis (9) Diabetes mellitus Diabetes mellitus complication status: without complication Diabetes mellitus chcf insulin use: without intermediate project manager use Diabetes mellitus type: type 2 Qualified Code(s): E11.9 - Type 2 diabetes mellitus without complications
[2023-02-03] MEDS: INSULIN ASPART PER UNIT CHARGE SC SCH ×4 (08:12→21:40)
[2023-02-03] MEDS: metFORMIN HCL 500 MG TAB PO SCH ×2 (08:12→17:12)
[2023-02-03] MEDS: LANTUS PER UNIT CHARGE SC SCH ×2 (08:30→21:40)
--- NOTE | 2023-02-03 08:33 | XRay Report ---
XR chest 1V portable CLINICAL HISTORY: eval pulm edema TECHNIQUE: Single frontal radiograph of the chest was obtained. Comparison: Comparison is made to chest radiograph 01/17/2023 FINDINGS: Postsurgical changes are seen of left shoulder arthroplasty. Calcified aortic knob is seen. The lungs are clear. No evidence of pleural effusion or pneumothorax. IMPRESSION: No acute abnormalities and in particular no evidence of pulmonary edema. ACT 112: Negative or not required by law. Electronically signed by: Jose D Montoya M.D. 02/03/2023 8:32 AM
[2023-02-03] MEDS ORDERED: SODIUM CHLORIDE 0.9% 1000ML 250 ML IV ONE ×2 (09:13→14:18)
--- NOTE | 2023-02-03 13:28 | Electrocardiogram Report ---
Test Reason : Blood Pressure : / mmHG Vent. Rate : 076 BPM Atrial Rate : 076 BPM P-R Int : 162 ms QRS Dur : 118 ms QT Int : 408 ms P-R-T Axes : 050 -62 122 degrees QTc Int : 459 ms Sinus rhythm with occasional Premature ventricular complexes Left axis deviation Incomplete right bundle branch block Abnormal ECG When compared with ECG of 03-DEC-2018 18:28, Premature ventricular complexes are now Present Nonspecific T wave abnormality, worse in Anterior leads QT has lengthened Confirmed by Florin Walsh ([id number]) on 02/03/2023 1:28:43 PM Referred By: Rebel Gallego Confirmed By:Antonio Walsh
[2023-02-03] MEDS: traMADol HCL 50 MG TABLET PO SCH ×3 (14:02→21:41)
[2023-02-03 14:56] LABS: Hematocrit (blood only) 36.5 % (42.0-52.0); Mean Corpuscular Hemoglobin 33.3 pg (25.0-34.0); Mean Corpuscular Hgb Conc 32.9 g/dL (32.0-36.0); Mean Corpuscular Volume 101.4 fL (80.0-100.0); Mean Platelet Volume 9.7 fL (9.4-12.4); Platelet Count 269 K/uL (130-400); RDW Coefficient of Variation 12.7 % (11.5-14.5); RDW Standard Deviation 47.7 fL (36.4-46.3); White Blood Count 15.37 K/ul (4.8-10.8)
[2023-02-03 17:34] LABS: Appearance Urine Clear (Clear); Bacteria Urine Automated Negative (Negative); Bilirubin Urine Negative (Negative); Blood Urine Negative (Negative); Color Urine Dark Yellow; Glucose Urine UA Negative (Negative); Ketones Urine Trace (Negative); Leukocyte Esterase Urine Negative (Negative); Nitrite Urine Negative (Negative); Protein Urine 1+ (Negative); RBC Urine Automated 0-4 /hpf (0-4); Specific Gravity Urine 1.027 (1.000-1.030); Urobilinogen Urine Negative (Negative); pH Urine 5.5 (4.5-7.5)
[2023-02-03] MEDS: ATORVASTATIN 40 MG TAB PO SCH (19:48)
[2023-02-03] MEDS: UMECLIDINIUM BROMIDE 62.5MCG/BLISTER 7 PUFFS/INHALER INH SCH (19:50)
[2023-02-03] MEDS: SENNA 8.6 MG TAB PO SCH (19:50)
[2023-02-04] MEDS: traMADol HCL 50 MG TABLET PO SCH ×3 (02:30→08:21)
[2023-02-04 06:20] LABS: Basophils # (auto) 0.02 K/uL (0-0.2); Basophils % (auto) 0.1 %; Eosinophils # (auto) 0.07 K/uL (0-0.50); Eosinophils % (auto) 0.5 %; Hematocrit (blood only) 33.2 % (42.0-52.0); Immature Granulocytes # (auto) 0.09 K/uL (0.01-0.20); Immature Granulocytes % (auto) 0.6 %; Lymphocytes # (auto) 1.24 K/uL (1.2-3.4); Lymphocytes % (auto) 8.9 %; Mean Corpuscular Hemoglobin 33.2 pg (25.0-34.0); Mean Corpuscular Hgb Conc 33.1 g/dL (32.0-36.0); Mean Corpuscular Volume 100.3 fL (80.0-100.0); Monocytes # (auto) 1.93 K/uL (0.11-0.59); Monocytes % (auto) 13.9 %; Neutrophils # (auto) 10.54 K/uL (1.40-6.50); Platelet Count 267 K/uL (130-400); RDW Coefficient of Variation 12.6 % (11.5-14.5); RDW Standard Deviation 46.5 fL (36.4-46.3); Red Blood Count 3.31 M/uL (4.70-6.10); White Blood Count 13.89 K/ul (4.8-10.8)
--- NOTE | 2023-02-04 06:31 | Orthopedic Progress Note ---
Date of Service February 04, 2023 Assessment & Plan (1) Primary osteoarthritis, left shoulder: Plan: Postop day 3 status post left total shoulder arthroplasty PT/OT protocols. Nonweightbearing left upper extremity. DVT prophylaxis-aspirin p.o. daily, SCDs Pain management-tramadol working well for his pain control. Patient states he is doing much better this morning, denies fever chills chest pain shortness of breath lightheadedness or dizziness. We will see how he performs after breakfast, if he is doing well he can be discharged home and will follow-up in the office in 2 weeks DC planning-outpatient PT upon discharge Admission and Anticipated Discharge Date Admission Date: February 03, 2023 Subjective Postop day 3 Patient resting in bed this morning, States he is feeling much better today than yesterday. Denies chest pain shortness of breath fever chills lightheadedness or dizziness Review of Systems Constitutional: no fever and no chills Respiratory: no cough and no dyspnea Cardiovascular: no chest pain, no dyspnea and no orthopnea Gastrointestinal: no abdominal pain, no nausea and no vomiting Physical Exam Physical Exam: Vital Signs Temp 36.7 C 02/03/23 19:41 Pulse 82 02/03/23 19:41 Resp 18 02/03/23 19:41 BP 130/75 02/03/23 19:41 Pulse Ox 94 02/03/23 19:41 O2 Del Method Nasal Cannula 02/03/23 19:50 O2 Flow Rate 2 02/03/23 19:50 Intake & Output 02/03/23 02/03/23 02/04/23 06:59 18:59 06:59 Intake Total 200 / 1305.0 700 / 700 Output Total 400 / 775 150 / 550 400 / 550 Balance -200 / 530.0 550 / 150 -400 / 150 Weight 92.1 kg Intake: IV 200 / 455.0 500 / 500 Magnesium Sulf ate / D5w 1 gm In 200 / 392.5 100 ml @ 50 ml s/hr IV Q2H BAILEY Rx#:[id number] Sodium Chlorid e 0.9% 1000ML 250 500 / 500 ml @ 999 mls/h r IV .Q16M ONE Rx#:[id number] Oral 200 / 200 Output: Urine 400 / 775 150 / 550 400 / 550 Other: # Unmeasured Voi ds 1 Musculoskeletal: Left Shouulder: Dressings are clean, dry, and intact. Sling is in place. Numbness in the fingers essentially resolving and he is moving his fingers well. Cap refill is less than 2 seconds Results & Data Vital Signs (Past 12 Hours) Vital Signs Temp Pulse Resp BP Pulse Ox O2 Del Method O2 Flow Rate 02/03/23 19:50 Nasal Cannula 2 02/03/23 19:41 36.7 C 82 18 130/75 94 Nasal Cannula 2
[2023-02-04 06:43] LABS: BUN Creatinine Ratio 31.4 (10-20); Calcium 8.7 mg/dl (8.6-10.3); Creatinine Clr Calc Pharmacy 74.2 ml/min; Est GFR (African American) 92.3 ml/min; Est GFR (Non-African American) 79.6 ml/min; Magnesium 1.7 mg/dl (1.7-2.4); Potassium 4.5 mmol/L (3.5-5.1)
[2023-02-04] MEDS: FLUTICASONE PROPIONATE NA SPR 16 GM BTL NAE SCH (07:13)
[2023-02-04] MEDS: FLUTICASONE/VILANTEROL 200/25MCG 14 PUFFS/INHALER INH SCH (07:14)
[2023-02-04] MEDS: ADVANCED PROBIOTIC 1250 MG CAPSULE PO SCH (07:15)
[2023-02-04] MEDS: MAGNESIUM OXIDE 400 MG TAB PO SCH (07:15)
[2023-02-04] MEDS: ASPIRIN 81 MG ECTAB PO SCH (07:16)
[2023-02-04] MEDS: DOCUSATE SODIUM 100 MG CAP PO SCH (07:16)
[2023-02-04] MEDS: TAMSULOSIN HCL 0.4 MG CAP PO SCH (07:16)
[2023-02-04] MEDS: FINASTERIDE 5 MG TAB PO SCH (07:16)
[2023-02-04] MEDS: PANTOprazole 40 MG TAB PO SCH (07:17)
[2023-02-04] MEDS: CYANOCOBALAMIN (B-12) 500 MCG TABLET PO SCH (07:17)
[2023-02-04] MEDS: carvediloL 6.25 MG TAB PO SCH (07:17)
[2023-02-04] MEDS: MULTIVITAMIN TAB PO SCH (07:17)
[2023-02-04] MEDS: metFORMIN HCL 500 MG TAB PO SCH (08:21)
[2023-02-04] MEDS: INSULIN ASPART PER UNIT CHARGE SC SCH (08:24)
[2023-02-04] MEDS: LANTUS PER UNIT CHARGE SC SCH (08:25)
--- NOTE | 2023-02-08 14:28 | Discharge Summary ---
Date of Service February 08, 2023 Admission HPI Per Admitting Provider 82-year-old male with past medical history significant for recent pneumonia last month, diabetes, hypertension, heart failure who presents with ongoing left shoulder pain. Patient has failed conservative measures. Pain is interfering with his daily activity. Patient denies headaches, sweats, fevers, chills, double vision, blurred vision, cough, sore throat, dysphagia, chest pain, sob, wheezing, n/v/d/c, numbness, tingling, fatigue, urinary symptoms, mood disorders. ROS positive for left shoulder pain and stiffness. Admission Exam Per Admitting Provider Physical Exam Constitutional: well developed and well nourished; no acute distress Eyes: PERRL, conjunctivae normal, anicteric sclerae ENMT: external ear and nose normal, oropharynx normal Neck: trachea midline, no thyromegaly Respiratory: normal respiratory effort; no respiratory distress Auscultation: + wheezes Cardiovascular: RRR, no murmur, no edema Musculoskeletal: Left shoulder: Positive impingement signs. Crepitation is present. Diffuse tenderness. Range of motion is painful. Abduction to 90 degrees, forward flexion to 130 degrees, external rotation to 60 degrees actively. Patient has full strength. Skin: no rashes, warm and dry Neurologic: patellar DTR's 2+ bilat, sensation intact Psychiatric: A+Ox3, euthymic affect Principal Diagnosis Left shoulder osteoarthritis Discharge Data Allergies Allergy/AdvReac Type Severity Reaction Status Date / Time levofloxacin Allergy Severe Facial Verified 02/08/23 14:29 swelling lisinopril Allergy Unknown ANGIOEDEMA Verified 02/08/23 14:29 hydrocodone [From Vicodin] AdvReac Severe Gastrointestinal Verified 02/08/23 14:29 Upset oxycodone [From OxyContin] AdvReac Severe Gastrointestinal Verified 02/08/23 14:29 Upset cephalexin AdvReac Unknown Gastrointestinal Verified 02/08/23 14:29 Upset clorazepate dipotassium AdvReac Unknown HYPERACTIVI Verified 02/08/23 14:29 [From Tranxene T-Tab] TY doxepin [From Sinequan] AdvReac Unknown Drowsiness Verified 02/08/23 14:29 Consultations 01/27/23 15:23 Consult Hospitalist Routine Procedures Performed Operation Date: 02/01/23 12:00 Actual Procedures p Left Total Shoulder Arthroplasty, Distal Clavicle Excision, decompression(Left) - Rebel Gallego MD Ordered Studies 02/01/23 05:00 US - OR guided needle placemen Routine Hospital Course (1) Primary osteoarthritis, left shoulder: Patient was admitted on the above-noted date and had the above-noted surgery performed which she tolerated well. on his first postoperative day, patient was without complaints and feeling well. Pain was controlled. Plans were for him to begin his PT and OT protocols and the possibility of going home that afternoon. He was seen by Carine Thomas PA-C for medical consult. Patient was noted to have low magnesium and was ordered magnesium for repletion. Patient went through PT and OT protocols however was having orthostatic hypotension and was having difficulty ambulating. Patient over time was given small boluses of fluid to help combat this. It was felt that he should continue his hospital stay until his ambulation became a little more controlled without orthostatic hypotension. Dressings were clean, dry, and intact. Sling was in place. He had some residual numbness in his index finger and thumb but was moving his wrist well and had decent range of motion of his fingers. Patient was noted a to be put on 2 L of O2 post physical therapy. Plans were to follow his oxygen saturation and order chest x-ray if patient was unable to wean off of O2. By his second postoperative day, he was feeling a little bit better. He felt that the tramadol was helping with his pain control. Dressings remained intact. Dressing change and Hemovac removal on the second postoperative day. He was continued On his PT and OT protocols. He continued to remain somewhat unsteady in his gait and mildly orthostatic. He was back on room air and a chest x-ray done that morning was negative. By his third postoperative day, the patient was improving. He was progressing with his physical therapy. O2 saturation was adequate and he was remaining on room air. Pain control was adequate. dressings remaining intact and dry. Hemovac has been removed. Any residual numbness that he had in his fingers was not resolved and he had good range of motion of his wrist and hand and fingers. He was remaining medically stable and it was felt he be discharged home. Total Time Total Time Spent Total Time Spent (In Minutes): 10 Discharge Plan Discharge Items Patient Disposition: Home - Self-Care Reason For Visit: Left Shoulder Primary Osteoarthritis Discharge Diagnosis: Left shoulder osteoarthritis Activity: Per Instructions section Weightbearing: Left non-weightbearing Non-emergency contact: Surgeon Call non-emergency contact if: you have any medication questions, your pain is not controlled, your temperature is above 101.5, your wound has increased redness and your wound has increased drainage Follow-up/Referrals: Martha Soares-DO Cristal [Primary Care Provider] - 02/08/23 2:30 pm (With Dr. Guerra) Rebel Gallego MD [Surgeon] - ( follow-up with Dr. Gallego or his PA in 2 weeks from the day of surgery for your first postoperative visit.) Diet: Regular Addtl Attending Provider Instructions: ACTIVITY RECOMMENDATIONS: SELF CARE INSTRUCTIONS AFTER TOTAL SHOULDER ARTHROPLASTY A. You may do daily exercises as taught in physical therapy while in hospital. No lifting with the operative arm. Please schedule your outpatient physical therapy appointment to begin within 2-3 days after leaving the hospital. Specific restrictions will be written on your physical therapy prescription that is provided to you. B. You are to wear your sling/immobilizer at all times EXCEPT when performing your daily exercises, participating in physical therapy and for hygiene purposes. C. You may perform dry, daily dressing changes. Please keep your incision covered. You may shower 48 hours after surgery. Do not apply soap or any ointment/lotions directly over incision. Do not soak incision in bath tub/swimming pool. D. You may use ice as needed to operative shoulder. SPECIAL CARE INSTRUCTIONS: MEDICATION INSTRUCTIONS: *It is recommended you take Aspirin 325mg daily for four weeks post-op. VERY IMPORTANT TO READ AND REVIEW A. There are a few signs you need to watch for after you are home. Call [facility] at [phone] if you experience any of the followin. Increased severe shoulder pain. Some pain is expected especially when you exercise. 2. Increased swelling in you shoulder or arm; pain or swelling in either upper extremity. 3. Any fluid drainage from the incision. 4. Shortness of breath or chest pain. B. Please call [facility] at [phone] if you have any questions or concerns about your operation or recovery. C. Call your physician if: 1. Temperature is greater than 101 degrees (F). 2. Pain is not relieved by prescribed pain medications. 3. Increase drainage or redness from incision. 4. Unanswered questions or concerns. FOLLOW UP VISIT: Please call [facility] at [phone] to schedule a follow up appointment with Dr. Gallego or his PA in 12-14 days from your surgery date. Pending Studies at Discharge: No Stand-Alone Forms: My [facility] Medications and DC Order Prescriptions: New tramadol 50 mg Tablet 50 - 100 mg PO Q6H PRN (Reason: pain) Qty: 24 0RF polyethylene glycol 3350 [Miralax] 17 gram powder in packet 17 g PO DAILY PRN (Reason: constipation) Qty: 5 0RF acetaminophen 500 mg capsule 1,000 mg PO Q8H 14 Days Qty: 84 0RF Continued tamsulosin [Flomax] 0.4 mg capsule 0.4 mg PO QAM triamcinolone acetonide [Nasacort] 55 mcg aerosol,spray 2 spray intranasal BID Rx Instructions: administer into each nostril ipratropium-albuterol 0.5 mg-3 mg(2.5 mg base)/3 mL solution for nebulization 3 ml INHALATION Q4H PRN (Reason: COPD) Qty: 360 5RF albuterol sulfate [Ventolin HFA] 90 mcg/actuation HFA aerosol inhaler 2 puff INH Q4H PRN (Reason: increased cough, shortness of breath or wheezing) Qty: 18 3RF losartan 100 mg tablet 100 mg PO QAM Qty: 90 3RF metformin 500 mg tablet 1,000 mg PO BID Qty: 360 3RF carvedilol 6.25 mg tablet 6.25 mg PO BID Qty: 180 3RF Rx Instructions: must administer with a meal/food omeprazole 40 mg capsule,delayed release(DR/EC) 40 mg PO QAM Qty: 90 3RF atorvastatin 40 mg tablet 40 mg PO HS Qty: 90 3RF finasteride 5 mg tablet 5 mg PO QAM Qty: 90 1RF (DME) Incentive Spirometer Misc See Rx Instructions .ROUTE .MEDSUPPLY Qty: 1 0RF Rx Instructions: He is to use this multiple times daily. Probiotic 5 billion cell capsule, sprinkle 1 cap PO QAM Qty: 90 3RF magnesium oxide 400 mg magnesium capsule 400 mg PO BID Qty: 180 3RF budesonide-formoterol [Symbicort] 160-4.5 mcg/actuation HFA aerosol inhaler 1 inh inhalation BID Qty: 10.2 2RF cyanocobalamin (vitamin B-12) 1,000 mcg tablet 1,000 mcg PO QAM Incruse Ellipta 62.5 mcg/actuation blister with device 1 inh inhalation QPM Patient Comments: 1700 EVERY DAY Discontinued acetaminophen [Tylenol] 325 mg capsule 325 mg PO BID No Action aspirin 81 mg tablet,delayed release (DR/EC) 324 mg PO QAM Qty: 90 3RF Discharge Orders: Discharge Order (Routine); Ordered 02/04/23 Ordered By: Willie Scherer Admission Data Admit Date/Time: 02/03/23 14:22 Attending Provider: Rebel Gallego Admit Provider: Rebel Gallego Primary Care Provider: Martha Soares Other Providers: Donald Taylor ; Donald Saldaña Other Interventions: Discharge Summary Assessment (RN) Last Done: 02/03/23 11:39
--- NOTE | 2023-02-08 19:15 | Anesthesiology Progress Note ---
Date of Service February 08, 2023 Anesthesia Post Procedure Pain Intensity Left Shoulder: Pain Intensity: 2 Transfer of Care Handoff Completed per policy Notes Mental Status: alert / awake / arousable Patient Amnestic to Procedure: Yes Nausea / Vomiting: adequately controlled Pain: adequately controlled Airway Patency, RR, SpO2: stable & adequate BP & HR: stable & adequate Hydration State: stable & adequate Anesthetic Complications: no major complications apparent
== END 2023-02-04 10:46 | disposition home or self-care (01) | DRG 483 ==
LOC: 3E 09:08 → ASU 09:08